=== PATIENT | male | born 1940 | race Caucasian/White ===

== ENCOUNTER 2017-09-28 08:52 | Day surgery (SDC) | payer MEDICARE ==
[~2017-09-28 08:52] MED LIST: Acetaminophen TAB* 325 MG PO PRN; Buffered Lidocaine 0.9% SYRIN* 5 ML/SYR SYRINGE INTRADERM ONE; Midazolam* 1 MG/ML 2 ML VIAL (2 MG) ONE
[2017-09-28 11:50] VITALS: BP 134/73
--- NOTE | 2017-09-28 13:26 | OP ---
DATE OF OPERATION: 09/28/2017 - [facility] DATE OF : 1940. SURGEON: Brendon Deutsch M.D. PREOPERATIVE DIAGNOSIS: Cataract right eye. POSTOPERATIVE DIAGNOSIS: Cataract right eye. OPERATIVE PROCEDURE: Extracapsular cataract extraction with intraocular lens implant right eye. DESCRIPTION OF PROCEDURE: The patient was brought to the operating room after being given 1/2% Alcaine with epinephrine drops in the preoperative area. The eye was prepped and draped in the usual sterile fashion. Sterile drape and eyelid speculum were placed. Again, topical 1/2% Alcaine with epinephrine was given. A paracentesis incision was made at the 9 o'clock position with the No.75 blade. Clear cornea incision 2.2 x 2.2-mm was created at the 12 o'clock position starting at the anterior limbus using the 2.2-mm keratome. The anterior chamber was irrigated with 0.4 mL of 1% non-preservative intracameral lidocaine and filled with DisCoVisc. A capsulorrhexis was completed using the cystotome and the Utrata forceps. Hydrodissection was performed with balanced salt solution. The lens nucleus was removed with the Phacoemulsification handpiece without incident. Cortex was removed with the irrigation-aspiration handpiece. The capsular bag was re-inflated using DisCoVisc and an [id number] implant was inserted with the shooter. The irrigation-aspiration handpiece was used to remove all residual DisCoVisc. The eye was refilled with balanced salt solution and the wound checked and found to be watertight. Topical Maxitrol drops were given. [id number]/[facility] #: [id number] [facility]PITALChrissie
== END 2017-09-28 11:44 | disposition home or self-care (01) ==
LOC: OREAST 08:52
PROVIDERS: ATTEND Specialist
DX: H25.811 Combined forms of age-related cataract, right eye (principal); H43.813 Vitreous degeneration, bilateral; H16.223 Keratoconjunctivitis sicca, not specified as Sjogren's, bilateral; Z87.891 Personal history of nicotine dependence; E55.9 Vitamin D deficiency, unspecified; N18.9 Chronic kidney disease, unspecified; G47.33 Obstructive sleep apnea (adult) (pediatric); I12.9 Hypertensive chronic kidney disease with stage 1 through stage 4 chronic kidney disease, or unspecified chronic kidney disease
CPT/HCPCS: J2250; V2632

== ENCOUNTER 2017-10-05 08:11 | Day surgery (SDC) | payer MEDICARE ==
[~2017-10-05 08:11] MED LIST changes: -Midazolam* 1 MG/ML 2 ML VIAL (2 MG) ONE
[2017-10-05] MEDS ORDERED: Midazolam* 1 MG/ML 2 ML VIAL (2 MG) ONE (10:46)
[2017-10-05] MEDS ORDERED: Cyclopentolate 1% OPTH.SOL* 2 ML BTL ONE ×2 (11:04→11:51)
[2017-10-05] MEDS ORDERED: Povidone Iodine 5% OPTH* 30 ML BTL ONE ×2 (11:04→11:51)
[2017-10-05] MEDS ORDERED: Phenylephrine 2.5% OPTH.SOL* 2 ML BTL ONE ×2 (11:04→11:51)
[2017-10-05] MEDS ORDERED: Ketorolac 0.5% OPHTH (NF) 0.5 % 5 ML BTL ONE ×2 (11:04→11:51)
[2017-10-05] MEDS ORDERED: Proparacaine 0.5% OPHTH.SOL* 15 ML BTL ONE ×2 (11:04→11:51)
[2017-10-05] MEDS ORDERED: Neomycin/Polymy/Dex OPTH.SUSP* MAXITROL 0.1% 5 ML ONE ×2 (11:04→11:51)
[2017-10-05] MEDS ORDERED: Lidocaine 2% EPI 1:200000 MPF* 20 ML VIAL ONE ×2 (11:04→11:51)
[2017-10-05] MEDS ORDERED: acetaZOLAMIDE TAB* 250 MG ONE ×2 (11:04→11:51)
[2017-10-05] MEDS ORDERED: Lidocaine 1% MPF* 2 ML VIAL ONE ×2 (11:04→11:51)
[2017-10-05 11:26] VITALS: BP 136/77
--- NOTE | 2017-10-05 12:54 | OP ---
DATE OF OPERATION: 10/05/2017. DATE OF : 1940. SURGEON: Brendon Deutsch M.D. PREOPERATIVE DIAGNOSIS: Cataract left eye. POSTOPERATIVE DIAGNOSIS: Cataract left eye. OPERATIVE PROCEDURE: Extracapsular cataract extraction with intraocular lens implant left eye. PROCEDURE: The patient was brought to the operating room after being given 1/2% Alcaine with epineph rine drops in the preoperative area. The eye was prepped and draped in the usual sterile fashion. S terile drape and eyelid speculum were placed. Again, topical 1/2% Alcaine with epinephrine was given . A paracentesis incision was made at the 3 o'clock position with the No.75 blade. Clear cornea inc ision 2.2 x 2.2-mm was created at the 6 o'clock position starting at the anterior limbus using the 2. 2-mm keratome. The anterior chamber was irrigated with 0.4 mL of 1% non-preservative intracameral li docaine and filled with DisCoVisc. A capsulorrhexis was completed using the cystotome and the Utrata forceps. Hydrodissection was performed with balanced salt solution. The lens nucleus was removed wi th the Phacoemulsification handpiece without incident. Cortex was removed with the irrigation-aspira tion handpiece. The capsular bag was re-inflated using DisCoVisc and an [id number] implant was insert ed with the shooter. The irrigation-aspiration handpiece was used to remove all residual DisCoVisc. The eye was refilled with balanced salt solution and the wound checked and found to be watertight. Topical Maxitrol drops were given. [id number]/[facility] #: [id number]
== END 2017-10-05 11:34 | disposition home or self-care (01) ==
LOC: OREAST 08:11
PROVIDERS: ATTEND Specialist
DX: H25.812 Combined forms of age-related cataract, left eye (principal); H43.813 Vitreous degeneration, bilateral; H16.223 Keratoconjunctivitis sicca, not specified as Sjogren's, bilateral; I12.9 Hypertensive chronic kidney disease with stage 1 through stage 4 chronic kidney disease, or unspecified chronic kidney disease; N18.9 Chronic kidney disease, unspecified; E55.9 Vitamin D deficiency, unspecified; I45.10 Unspecified right bundle-branch block; E78.5 Hyperlipidemia, unspecified; G47.33 Obstructive sleep apnea (adult) (pediatric); Z87.891 Personal history of nicotine dependence
CPT/HCPCS: A9270-GY; J2250; V2632

== ENCOUNTER → 2019-05-11 | Day surgery (SDC) | payer MEDICARE ==
[~2019-05-11] MED LIST changes: -Acetaminophen TAB* 325 MG PO PRN; -Buffered Lidocaine 0.9% SYRIN* 5 ML/SYR SYRINGE INTRADERM ONE; +Flumazenil* 0.1 MG/ML 5 ML MDV ONE; +Heparin 2 UNITS/ML IVPREMIX* 3,000 UNIT/1,500 ML BAG IV ONE; +Heparin(*) 1000 UNIT/ML 10 ML VIAL CATH LAB IV ONE; +Iodixanol 320 (CONTRAST) 100 ML SDV ONE; +LORazepam TAB(*) 1 MG ONE; +Lidocaine 1% INJ* 10 MG/ML 30 ML SDV ONE; +Metoprolol Tartrate IV* 1 MG/ML 5 ML VIAL ONE; +Midazolam* 1 MG/ML 5 ML VIAL (5 MG) ONE; +Naloxone* 0.4 MG/ML 1 ML VIAL ONE; +fentaNYL* 50 MCG/ML 5 ML VIAL (250 MCG VIAL) ONE
[2019-05-11 12:45] VITALS: BP 158/75
--- NOTE | 2019-05-11 14:59 | PN ---
Progress Note - Progress Note Date of Service: 05/11/19 SOAP: Subjective: No pain complaints at right groin or elsewhere. No SOB or CP. + void without issue. Objective: Selected Entries 05/11/19 12:36 Heart Rate 73 Respiratory 12 Rate Blood Pressure 158/75 (mmHg) Blood Pressure 102 Mean O2 Sat by Pulse 95 Oximetry NAD, AAO x 3 Right groin over right common femoral arteriotomy is soft and nontender Overlying gauze is clean, dry & intact Pulse exam is unchanged Assessment: 78 YOM status post DIAGNOSTIC pelvic and bilateral lower extremity arteriography. The bilateral SFAs are occluded from the ostia to the mid thigh with distal reconstitution. Plan: 1. D/C to home. 2. Should the patient choose to do so, he will return in 2-4 weeks to attempt to revascularize the SFAs from a transpedal retrograde approach. 3. Per usual IR protocol clinic RN will call patient Tuesday, May 14, 2019 to inquire about any access site complications.
== END | disposition home or self-care (01) ==
LOC: CHICARD 06:52
PROVIDERS: ATTEND Radiology Diagnostic Radiology
DX: I70.213 Atherosclerosis of native arteries of extremities with intermittent claudication, bilateral legs (principal); I12.9 Hypertensive chronic kidney disease with stage 1 through stage 4 chronic kidney disease, or unspecified chronic kidney disease; N18.9 Chronic kidney disease, unspecified; E78.00 Pure hypercholesterolemia, unspecified; Z85.51 Personal history of malignant neoplasm of bladder; Z86.718 Personal history of other venous thrombosis and embolism; Z87.891 Personal history of nicotine dependence
CPT/HCPCS: 75716; 75736; 76937; 99156; 99157; A9270-GY; C1769; C1887; J1644; J2250; J2310; J3010; J3490

== ENCOUNTER → 2019-06-15 07:02 | Day surgery (SDC) | payer MEDICARE ==
[~2019-06-15 07:02] MED LIST changes: +Acetaminophen TAB* 325 MG ONE; +Clopidogrel TAB* 300 MG ONE; -Flumazenil* 0.1 MG/ML 5 ML MDV ONE; -Heparin 2 UNITS/ML IVPREMIX* 3,000 UNIT/1,500 ML BAG IV ONE; +Heparin 2 UNITS/ML IVPREMIX* 4,000 UNIT/2,000 ML BAG IV ONE; -Metoprolol Tartrate IV* 1 MG/ML 5 ML VIAL ONE; -Naloxone* 0.4 MG/ML 1 ML VIAL ONE; +VERAPAMIL 2.5 MG/ML 2 ML VIAL ** 5 mg/2 ml ONE; +ceFAZolin 1 GM* X ONE DOSE (AddVan) IVPB; +fentaNYL* 50 MCG/ML 2 ML VIAL (100 MCG VIAL) ONE; -fentaNYL* 50 MCG/ML 5 ML VIAL (250 MCG VIAL) ONE; +hydrALAZINE IV* 20 MG/ML VIAL ONE; +nitroGLYCERIN DRIP* 25,000 MCG/250 ML BTL ONE
[2019-06-15 15:23] VITALS: BP 153/82
== END | disposition home or self-care (01) ==
LOC: CHICATH 07:02
PROVIDERS: ATTEND Radiology Diagnostic Radiology
DX: I70.213 Atherosclerosis of native arteries of extremities with intermittent claudication, bilateral legs (principal); E78.00 Pure hypercholesterolemia, unspecified; N18.9 Chronic kidney disease, unspecified; Z86.718 Personal history of other venous thrombosis and embolism; Z86.711 Personal history of pulmonary embolism; Z87.891 Personal history of nicotine dependence; I12.9 Hypertensive chronic kidney disease with stage 1 through stage 4 chronic kidney disease, or unspecified chronic kidney disease; G47.30 Sleep apnea, unspecified; Z85.51 Personal history of malignant neoplasm of bladder; E55.9 Vitamin D deficiency, unspecified
CPT/HCPCS: 37252; 76937; 85347; 93922; 99156; 99157; A9270-GY; C1725; C1753; C1769; C1776; C1874; C1887; C1894; J0360; J0690; J1644; J2250; J3010

== ENCOUNTER → 2019-07-27 06:45 | Day surgery (SDC) | payer MEDICARE ==
[~2019-07-27 06:45] MED LIST changes: -Acetaminophen TAB* 325 MG ONE; -Clopidogrel TAB* 300 MG ONE; +Heparin 2 UNITS/ML IVPREMIX* 1,000 ML IV ONE; +Heparin 2 UNITS/ML IVPREMIX* 2,000 ML IV ONE; -Heparin 2 UNITS/ML IVPREMIX* 4,000 UNIT/2,000 ML BAG IV ONE; -hydrALAZINE IV* 20 MG/ML VIAL ONE
[2019-07-27 07:45] LABS: ABS Eosinophils 0.2 10^3/ul (0-0.6); ABS Lymphocytes 1.4 10^3/ul (1.0-4.8); ABS Monocytes 0.5 10^3/ul (0-0.8); Eosinophil % 2.5 %; Hematocrit 39 % (42-52); Hemoglobin 13.4 g/dL (14.0-18.0); Lymphocyte % 19.5 %; Mean Corpuscular HGB Conc 34 g/dL (31-36); Mean Corpuscular Hemoglobin 31 pg (27-31); Mean Corpuscular Volume 91 fL (80-94); Mean Platelet Volume 6.7 fL (7.4-10.4); Platelet Count 216 10^3/uL (150-450); Red Blood Count 4.29 10^6 /uL (4.18-5.48); Red Cell Distribution Width 15 % (10-15)
[2019-07-27 07:53] LABS: Activated Partial Thrombo Time 38.1 seconds (26.0-38.0); INR 1.05 (0.82-1.09)
[2019-07-27 08:03] LABS: BUN/Creatinine Ratio 15.8 (8-20); Calcium 9.7 mg/dL (8.6-10.3); EGFR African American 56.4 (>60); EGFR Non-African American 46.6 (>60); Potassium 4.5 mmol/L (3.5-5.0)
[2019-07-27 13:30] VITALS: BP 134/73
== END | disposition home or self-care (01) ==
LOC: CHICATH 06:45
PROVIDERS: ATTEND Radiology Diagnostic Radiology
DX: I70.222 Atherosclerosis of native arteries of extremities with rest pain, left leg (principal); E78.00 Pure hypercholesterolemia, unspecified; N18.9 Chronic kidney disease, unspecified; F32.9 Major depressive disorder, single episode, unspecified; E55.9 Vitamin D deficiency, unspecified; I12.9 Hypertensive chronic kidney disease with stage 1 through stage 4 chronic kidney disease, or unspecified chronic kidney disease; Z85.51 Personal history of malignant neoplasm of bladder; G47.30 Sleep apnea, unspecified; Z86.718 Personal history of other venous thrombosis and embolism; Z79.82 Long term (current) use of aspirin; Z86.711 Personal history of pulmonary embolism; Z87.891 Personal history of nicotine dependence
CPT/HCPCS: 36415; 75736; 76937; 80048; 85025; 85610; 85730; 99156; 99157; A9270-GY; C1725; C1760; C1769; C1887; C1894; J0690; J1644; J2250; J3010

== ENCOUNTER 2019-12-05 02:32 | Inpatient (IN) | payer MEDICARE ==
--- OUTSIDE RECORDS SUMMARY | 2019-12-05 02:40 | XMS REPORT | Continuity of Care Document ---
:1940 External Reference #:[id number] Author Name Austin Nicholas MD Address [address] [place] [address] Care Team Providers Name Role Phone Amor Brown M.D. - Family Medicine Care Team Information Slip Bridge Operator Brendon Kohler MD - Nephrology Care Team Information Slip Bridge Operator Joshua Shelley MD - Urology Care Team Information Slip Bridge Operator Problems Active Problems Provider Date Essential hypertension Amor Brown M.D. Onset: 04/09/2012 Pure hypercholesterolemia Amor Brown M.D. Onset: 04/09/2012 Chronic renal failure Amor Brown M.D. Onset: 04/09/2012 Depressive disorder Amor Brown M.D. Onset: 04/09/2012 Vitamin D deficiency Amor Brown M.D. Onset: 04/09/2012 Neoplasm of uncertain behavior of bladder Amor Brown M.D. Onset: 04/09/2012 Social History Type Date Description Comments Sex Unknown Tobacco Use Start: Unknown End: Unknown former cigarette smoker Tobacco Use Start: Unknown , since 14 years old. Smokeless Tobacco Former smokeless tobacco user, age 65 aprox 1 to 1/2ppd x 51 years, quit at [facility]TO[facility] Use Denies alcohol use Allergies, Adverse Reactions, Alerts Description No Known Drug Allergies Medications Active Medications SIG Qnty Indications Ordering Provider Date Omeprazole 1 by mouth every 60caps K29.01 Austin Nicholas, 11/27/2019 40mg day MD Capsules Pravastatin Sodium take one tablet 90tabs I73.9 Amor Brown M.D. 2018 20mg by mouth at Tablets bedtime Oxybutynin Chloride 1 by mouth qd-tid 60tabs N39.41 Amor Brown M.D. 01/24 5mg Tablets Atenolol take 1/2 tablets 45tabs I10 Amor Brown M.D. 11/17/2017 50mg Tablets by mouth once daily Vitamin D 1 by mouth every Amor Brown M.D. 08/17/2016 (Cholecalciferol) day 1000Unit Capsules Duloxetine HCL take one capsule 30caps Amor Brown M.D. 05/03/2014 60mg by mouth every Caps DR Part day Aspirin 1 PO qd Amor Brown M.D. 09/25/2008 81mg Chewtabs Clopidogrel Bisulfate Take 1 Tablet By Unknown Mouth Once Daily 75mg Tablets Start Tuesday History Medications Rosuvastatin Calcium 1 by mouth every 30tabs Amor Brown M.D. 07/24/2019 - 5mg day 09/06/2019 Tablets Immunizations CPT Code Status Date Vaccine Lot # [id number] Given 09/06/2019 Influenza Vaccine High Dose PF [id number] 47850 Given 10/04/2018 Influenza Vaccine High Dose PF [id number] 91601 Given 09/22/2017 Influenza Vaccine High Dose PF [id number] 15518 Given 10/07/2016 Influenza Vaccine High Dose PF [id number] 76806 Given 02/28/2015 Prevnar-13 Pneumococcal Conjugate Vaccine [id number] 09284 Given 02/22/2013 Tdap (Adacel) [id number] 86806 Given 02/18/2011 Pneumovax 23 (PPSV23) 65+ years or high risk 2 to [id number] 64 year old 19179 Given 02/18/2011 Td Age 7 to adult Decavac, Tenivac, [employer] [id number] 90380 Refused 10/02/2015 Influenza Vaccine High Dose PF Vital Signs Date Vital Result Comment 11/27/2019 10:27am Weight 179.00 lb Weight 81.194 kg BP Systolic 154 mmHg BP Diastolic 82 mmHg Heart Rate 74 /min Body Temperature 97.3 F Respiratory Rate 18 /min 09/06/2019 2:59pm Weight 178.00 lb Weight 80.741 kg BP Systolic 122 mmHg BP Diastolic 76 mmHg Heart Rate 76 /min Body Temperature 98.3 F Respiratory Rate 18 /min O2 % BldC Oximetry 96 % Results Test Acquired Date Facility Test Result H/L Range Note CBC Auto 07/27/2019 [facility] White Blood 7.0 10^3/ uL Normal 3.5-10.8 Diff [phone] Count Red Blood Count 4.29 10^6/uL Normal 4.18-5.48 Hemoglobin 13.4 g/dL Low 14.0-18.0 Hematocrit 39 % Low 42-52 Mean Corpuscular Volume 91 fL Normal 80-94 Mean Corpuscular Hemoglobin 31 pg Normal 27-31 Mean Corpuscular HGB Conc 34 g/dL Normal 31-36 Red Cell Distribution Width 15 % Normal 10-15 Platelet Count 216 10^3/uL Normal 150-450 Mean Platelet Volume 6.7 fL Low 7.4-10.4 Abs Neutrophils 5.0 10^3/uL Normal 1.5-7.7 Abs Lymphocytes 1.4 10^3/uL Normal 1.0-4.8 Abs Monocytes 0.5 10^3/uL Normal 0-0.8 Abs Eosinophils 0.2 10^3/uL Normal 0-0.6 Abs Basophils 0.0 10^3/uL Normal 0-0.2 Abs Nucleated RBC 0.0 10^3/uL Granulocyte % 70.8 % Lymphocyte % 19.5 % Monocyte % 7.0 % Eosinophil % 2.5 % Basophil % 0.2 % Nucleated Red Blood Cells % 0.0 Inr/Protime 07/27/2019 [facility] Inr 1.05 Normal 0.82-1.09 5 [phone] Laboratory test 07/27/2019 [facility] Partial 38.1 High 26.0-38.0 finding [phone] Thrombo seconds Time PTT Basic Metabolic 07/27/2019 [facility] Sodium 141 mmol /L Normal 135-145 Panel [phone] Potassium 4.5 mmol/L Normal 3.5-5.0 Chloride 104 mmol/L Normal 101-111 Co2 Carbon Dioxide 32 mmol/L Normal 22-32 Anion Gap 5 mmol/L Normal 2-11 Glucose 96 mg/dL Normal 70-100 Blood Urea Nitrogen 23 mg/dL Normal 6-24 Creatinine 1.46 mg/dL High 0.67-1.17 BUN/Creatinine Ratio 15.8 Normal 8-20 Calcium 9.7 mg/dL Normal 8.6-10.3 Egfr Non- 46.6 >60 Egfr 56.4 >60 2 Laboratory test 06/15/2019 [facility] Poc Activated 255 seconds 3 finding [phone] Clotting Time Laboratory test 06/15/2019 [facility] Poc Activated 219 seconds 4 finding [phone] Clotting Time 1 Standard intensity warfarin therapeutic range: 2.0-3.0 High intensity warfarin therapeutic range: 2.5-3.5 2 Because ethnic data is not always readily available, this report includes an eGFR for both -Americans and non- Americans. The National Kidney Disease Education Program (NKDEP) does not endorse the use of the MDRD equation for patients that are not between the ages of 18 and 70, are , have extremes of body size, muscle mass, or nutritional status, or are non- or non-. According to the National Kidney Foundation, irrespective of diagnosis, the stage of the disease is based on the level of kidney function: Stage Description GFR(mL/min/1.73 m(2)) 1 Kidney damage with normal or decreased GFR 90 2 Kidney damage with mild decrease in GFR 60-89 3 Moderate decrease in GFR 30-59 4 Severe decrease in GFR 15-29 5 Kidney failure <15 (or dialysis) 3 Specialized Language Instructor: [id number] Reference Range: 74-125 seconds 4 Specialized Language Instructor: [id number] Reference Range: 74-125 seconds Procedures Description No Information Available Medical Devices Description No Information Available Encounters Type Date Location Provider Dx Diagnosis Office Visit 09/06/2019 Main Office Amor Brown M.D. 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 09/06/2019 N18.9 Chronic kidney disease, unspecified Amor Brown M.D. 09/06/2019 M15.0 Primary generalized (osteo)arthritis Amor Brown M.D. 09/06/2019 I73.9 Peripheral vascular disease, unspecified Amor Brown M.D. 09/06/2019 Z23 Encounter for immunization Amor Brown M.D. Plan of Treatment Future Appointment(s):01/17/2020 9:30 am - Amor Brown M.D. at Main [facility]7411/27 - Austin Nicholas MDK29.01 Acute gastritis with bleedingNew Medication: Omeprazole 40 mg - 1 by mouth every dayComments:Acute onset of epigastric pain consistent with gastritis or ulcer. We will begin with omeprazole and H. pylori testing.If H. pylori testing is negative, he will be referred to gastroenterology for likely upper endoscopy.We will also get some blood work today to ensure he is not becoming anemic. Functional Status Description No Information Available Mental Status Description No Information Available Referrals Description No Information Available
--- NOTE | 2019-12-05 02:42 | ED ---
HPI Chest Pain - HPI Summary HPI Summary: The patient is am 79-year-old male arriving via ambulance to [facility] with a chief complaint of mid-sternal CP onset around 0100 this morning. He reports that the severe pain woke him up with rating 10/10 in severity. He waited to call EMS because he has experienced similar pain before, but the pain usually subsides, and it hadnt resolved this time so he proceeded to call an ambulance. En route , the patient was administered one NTG and ASA to complete resolution of the pain. During the event, he felt diaphoretic but not nauseous or short of breath. He endorses diffuse abdominal pain that is worst on the left. No stated cardiac history, although he had a cardiac cath in the past with results of stripped veins. Taking Plavix. Past medical history significant for HTN, vertigo, sleep apnea, chronic renal failure. Former smoker, no EtOH, no substance use. Medications reviewed. Allergies noted. - History of Current Complaint Hx Obtained From: Patient, EMS Onset/Duration: Started Hours Ago, Resolved Time of Onset: 01:00 Timing: Constant Initial Severity: Severe Current Severity: None Pain Intensity: 0 Pain Scale Used: 0-10 Numeric Chest Pain Location: Mid Sternal Chest Pain Radiates: No Character: Sharp/Stabbing Aggravating Factor(s): Nothing - woke up with pain Alleviating Factor(s): NTG 123 - one, EMS Tx - ASA/NTG Associated Signs and Symptoms: Positive: Chest Pain, Diaphoresis, Abdominal Pain - diffuse worse on left. Negative: Shortness of Breath, Nausea - Allergy/Home Medications Allergies/Adverse Reactions: Allergies Allergy/AdvReac Type Severity Reaction Status Date / Time No Known Allergies Allergy Verified 12/05/19 02:43 Home Medications: Home Medications Multivitamin 1 tab PO DAILY 12/05/19 [History Confirmed 12/05/19] PMH/Surg Hx/FS Hx/Imm Hx Endocrine/Hematology History: Denies: Hx Diabetes Cardiovascular History: Reports: Hx Hypertension - MEDICATED Denies: Hx Angina, Hx Hypercholesterolemia, Hx Pacemaker/ICD Respiratory History: Reports: Hx Sleep Apnea - MILD Denies: Hx Asthma, Hx Chronic Obstructive Pulmonary Disease (COPD) History: Reports: Hx Chronic Renal Failure, Hx Renal Disease Denies: Hx Dialysis Musculoskeletal History: Reports: Hx Arthritis Sensory History: Reports: Hx Cataracts - BILATERAL Denies: Hx Contacts or Glasses, Hx Hearing Aid - [facility] is [facility] History: Reports: Hx Cataracts - BILATERAL Denies: Hx Contacts or Glasses Neurological History: Reports: Other Neuro Impairments/Disorders - vertigo Psychiatric History: Reports: Hx Depression - ON MEDICATION FOR Denies: Hx Panic Disorder - Cancer History Cancer Type, 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 CATARACT REPAIR. METALLIC SHARD TO FOREHEAD( SCREENING XRAYS DONE; PER DR. ROMERO: PT IS OKAY TO HAVE MRI LONG HE IS ALERT AND UNDERSTANDS THE POTENTIAL THAT THE METAL MAY HEAT AND HE MUST ALERT US IF HE EXPERIENCES ANY PAIN/DISCOMFORT/HEATING IN THAT AREA.) Hx Anesthesia Reactions: No - Family History Known Family History: Negative: Diabetes - Social History Alcohol Use: None Hx Substance Use: No Substance Use Type: Reports: None Hx Tobacco Use: Yes Smoking Status (MU): Former Smoker Amount Used/How Often: 1 PPD X 50 YEARS Have You Smoked in the Last Year: No - Additional Comments History Additional Comments: hypertension, vertigo, sleep apnea, chronic renal failure, former smoker Review of Systems - ROS Summary Review of Systems Summary: Home Medications Medication Instructions Recorded Confirmed Type Aspirin [Aspirin 81 MG TAB] 81 mg PO DAILY 09/27/17 07/27/19 History Atenolol TAB* [Tenormin TAB* 25 MG] 25 mg PO QAM 09/27/17 07/27/19 History Cholecalciferol TAB* [Vitamin D 1,000 unit PO DAILY 09/27/17 07/27/19 History TAB*] DULoxetine CAP* [Cymbalta CAP*] 60 mg PO QPM 09/27/17 07/27/19 History Clopidogrel TAB* [Plavix TAB*] 75 mg PO DAILY 180 Days #90 tab 06/15/19 Rx Multivitamin 1 tab PO DAILY 12/05/19 12/05/19 History Positive: Skin Diaphoresis Positive: Chest Pain - mid-sternal Negative: Shortness Of Breath Positive: Abdominal Pain - diffuse worst on left. Negative: Nausea All Other Systems Reviewed And Are Negative: Yes Physical Exam - Summary Physical Exam Summary: General: Well-developed, Well-nourished elderly male. No acute distress. HEENT: Normocephalic, Atraumatic. Eyes: Conjuctiva normal, PERRL. Oropharynx: Clear, mucous membranes moist, (-) exudates. Neck: Soft, FROM, (-) lymphadenopathy, (-) thyromegaly, (-) JVD. Cardiovascular: Normal sinus rhythm, (-) murmur. Lungs: Clear to auscultation bilaterally (-) wheezes, (-) rales, (-) rhonchi. Abdomen: Soft, non-tender, non-distended, (-) organomegaly, normal bowel sounds. Back: (-) CVA tenderness Extremities: Trace edema. Skin: Warm, dry, (-) rash. Neuro: Alert and oriented x3, moves all extremities equally. No ataxia. No gait disturbance. No sensory deficit. Normal strength, normal sensation. Psychiatric: Mood normal, affect normal. Triage Information Reviewed: Yes Vital Signs Reviewed: Yes Procedures - Sedation Patient Received Moderate/Deep Sedation with Procedure: No Diagnostics - Laboratory Result Diagrams: 12/05/19 02:45 12/05/19 02:45 Lab Statement: Any lab studies that have been ordered have been reviewed, and results considered in the medical decision making process. - EKG 0229 Cardiac Rate: NL - 94 BPM EKG Rhythm: Sinus Rhythm Summary of EKG Findings: EKG at 0344 reveals normal sinus rhythm with rate of [address] depressions in I, V2-V6. ST elevation in aVR. This EKG was reviewed and interpreted by Dr. Langston. 0344 Cardiac Rate: NL - 96 BPM EKG Rhythm: Sinus Rhythm EKG Comparison: No Significant Change Summary of EKG Findings: EKG at 0344 reveals normal sinus rhythm with rate of 96 BPM, no acute changes from prior, no STEMI. This EKG was reviewed and interpreted by Dr. Langston. Re-Evaluation - Re-Evaluation First Eval Re-Evaluation Time: 03:30 Change: Worse Comment: Patient experiencing some pain in the left arm, will administer Lovenox Second Eval Re-Evaluation Time: 04:00 Change: Worse Comment: Chest pain has returned, will administer Lopressor and Lipitor, plan for admission Chest Pain Course/Dx - Course Course Of Treatment: 79-year-old male presents from home by ambulance for chest pain. he states he's been having chest pains off and on for a few weeks now. Has seen PCP. Is also been complaining of left upper abdominal pain. Tonight patient's pain was 9 out of 10. Pain was completely relieved en route was 1 nitroglycerin. Also had 4 baby aspirin's at that time as well. Patient's EKG upon arrival demonstrates some ST depressions which are new. Does not qualify as a STEMI. Patient remained chest pain free throughout most of his workup. Troponin was positive at 3.7. Patient did return of his pain. Greater than a 5 out of 10. Nitro drip was ordered. Blood pressure was soft so Lopressor now ordered that time. However patient's blood pressure started to increase soon thereafter. IV fluids were started and Lopressor ordered. Lovenox ordered. Repeat EKG shows no changes from initial EKG. Cardiology was consulted. They recommended titrating nitro drip until patient was pain-free. Checking repeat EKG. after titration of the nitro drip patient was again pain-free. Patient referred to hospitalist for admission. Patient administered fluids, Lovenox, nitro drip, and Lopressor. - Diagnoses Provider Diagnoses: NSTEMI (non-ST elevated myocardial infarction) - Provider Notifications Discussed Care Of Patient With: Efren Delvalle - cardiology Time Discussed With Above Provider: 03:40 Instructed by Provider To: Other - I discussed the patient's case with Dr. Delvalle, and he will consult for the patien t with plan for admission. Request for NTG drip, repeat EKG, control pain. Dr. Esparza from the hospitalist services accepts the patient for admisssion [0350]. - Critical Care Time Critical Care Time: 30-74 min - 54 minutes Discharge ED - Sign-Out/Discharge Documenting (check all that apply): Patient Departure - Patient accepted for admission by Dr. Esparza. - Discharge Plan Condition: Stable Disposition: ADMITTED TO [facility] - Billing Disposition and Condition Condition: STABLE Disposition: Admitted to [facility] - Attestation Statements Document Initiated by Scribe: Yes Documenting Scribe: Adia Barlow Provider For Whom Scribe is Documenting (Include Credential): Dr. Luciana Langston MD Scribe Attestation: I, Adia Barlow, scribed for Dr. Luciana Langston MD on 12/05/19 at 0646. Scribe Documentation Reviewed: Yes Provider Attestation: The documentation as recorded by the Adia pérez accurately reflects the service I personally performed and the decisions made by me, Dr. Luciana Langston MD Status of Scribe Document: Viewed
[2019-12-05 03:03] LABS: ABS Basophils 0.1 10^3/ul (0-0.2); ABS Eosinophils 0.1 10^3/ul (0-0.6); ABS Monocytes 0.8 10^3/ul (0-0.8); ABS Neutrophils 8.5 10^3/ul (1.5-7.7); Eosinophil % 0.7 %; Hematocrit 38 % (42-52); Hemoglobin 13.2 g/dL (14.0-18.0); Lymphocyte % 9.5 %; Mean Corpuscular HGB Conc 35 g/dL (31-36); Mean Corpuscular Hemoglobin 32 pg (27-31); Mean Corpuscular Volume 92 fL (80-94); Mean Platelet Volume 7.7 fL (7.4-10.4); Platelet Count 214 10^3/uL (150-450); Red Blood Count 4.09 10^6 /uL (4.18-5.48); Red Cell Distribution Width 14 % (10-15); White Blood Count 10.4 10^3/uL (3.5-10.8)
[2019-12-05 03:08] LABS: INR 1.16 (0.82-1.09)
[2019-12-05 03:19] LABS: ALT 28 U/L (7-52); AST 43 U/L (13-39); Albumin 3.6 g/dL (3.2-5.2); Albumin/Globulin Ratio 1.2 (1-3); Alkaline Phosphatase 71 U/L (34-104); Anion Gap 12 mmol/L (2-11); BUN/Creatinine Ratio 16.2 (8-20); Blood Urea Nitrogen 27 mg/dL (6-24); CO2 Carbon Dioxide 24 mmol/L (22-32); Chloride 100 mmol/L (101-111); EGFR African American 48.1 (>60); EGFR Non-African American 39.8 (>60); Glucose 125 mg/dL (70-100); Potassium 3.4 mmol/L (3.5-5.0); Sodium 136 mmol/L (135-145); Total Protein 6.6 g/dL (6.4-8.9)
[2019-12-05 03:25] LABS: Troponin I 3.94 ng/mL (<0.03)
[2019-12-05] MEDS ORDERED: Enoxaparin(*) 80 MG/0.8 ML SYR SUBCUT ONE (03:27)
[2019-12-05] MEDS ORDERED: nitroGLYCERIN DRIP* 25,000 MCG/250 ML BTL IV ONE (03:34)
[2019-12-05] MEDS ORDERED: Metoprolol Tartrate IV* 1 MG/ML 5 ML VIAL IV ONE (04:06)
[2019-12-05] MEDS ORDERED: Atorvastatin* 80 MG TAB PO ONE (04:08)
[2019-12-05] MEDS ORDERED: Clopidogrel TAB* 75 MG PO ONE (04:08)
[2019-12-05] MEDS ORDERED: Metoprolol Tartrate TAB* 25 MG PO ONE ×2 (04:08→08:00)
[2019-12-05 04:41] LABS: Cholesterol 153 mg/dL; HDL Cholesterol 35.3 mg/dL; LDL Cholesterol 88 mg/dL; Triglycerides 149 mg/dL
[2019-12-05] MEDS ORDERED: NS 0.9% 1000 ML** 1,000 ML IV ONE (05:32)
[2019-12-05] MEDS ORDERED: Potassium Chlor TAB* 20 MEQ TAB.ER PO ONE (05:36)
[2019-12-05 06:12] LABS: Troponin I 4.95 ng/mL (<0.03)
--- NOTE | 2019-12-05 08:33 | HP ---
HISTORY AND PHYSICAL: DATE OF ADMISSION: 12/05/19 ADMITTING PROVIDER: Patel Esparza MD PRIMARY CARE PROVIDER: Dr. Amor Brown. CONSULTING PROGRAM OFFICER: Dr. Delvalle. CHIEF COMPLAINT: Severe chest pain. HISTORY OF PRESENT ILLNESS: Zane Estrada is an 79-year-old male with past medical history of claudication, status post revascularization of occluded proximal right superficial femoral artery (but has not been able to fully revascularize the left and was referred to a vascular surgeon for further evaluation, which he has not done yet); hypertension; hyperlipidemia; bladder cancer; pulmonary embolism (2006); obstructive sleep apnea; depression. He reports that he has been having approximately 6 weeks of intermittently very severe chest pain and also usually associated with some left abdominal pain. His stools have been black for several months and Dr. Nicholas had ordered, he says, a stool sample. He had a colonoscopy approximately 4 years ago. He has been having intermittent constipation. He woke up with severe left-sided chest pain around 1 a.m. and was brought to [facility] via ambulance. He received aspirin and nitroglycerin with EMT. Initial blood pressure was done, it had been 195/74 and the pain was rated as a 9 to 10/10. Initial evaluation in [facility] Emergency Room included EKG with ST depressions anteriorly and laterally. His initial troponin was 3.94. Dr. Ramos consulted Dr. Delvalle of Cardiology and there was initiation of a nitroglycerin drip given his continued chest pain (it had improved after the initial nitroglycerin with EMT). He was also given Lovenox 80 mg and was referred to the hospitalist service for admission. He now reports that his pain is greatly improved after up- titration of the nitroglycerin drip. Notably, he also has chronic kidney disease with a creatinine of 1.67, GFR of 39. 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 PAST MEDICAL HISTORY: Claudication with peripheral vascular disease; chronic kidney disease, stage 3; hypertension, hyperlipidemia; bladder cancer, status post scraping; obstructive sleep apnea; pulmonary embolism in 2006; depression. PAST SURGICAL HISTORY: He has had multiple revascularization attempts of his peripheral vascular disease in his legs. He lost his left kidney after a biopsy as above. MEDICATIONS: Include: 1. Atenolol 25 mg daily. 2. Aspirin 81 mg daily. 3. Duloxetine 60 mg daily. 4. Plavix 75 mg p.o. daily (started with plan for 6 months after the last 07/[address] Machado). 5. Cholecalciferol 1000 units p.o. daily. ALLERGIES: No known drug allergies. FAMILY HISTORY: His father of cerebral aneurysm and he also had lung cancer, his mother of unknown causes. He has a daughter who was due to brain cancer. He has a son with sarcoidosis and another child. SOCIAL HISTORY: The patient is a former smoker, approximately 1 pack per day between the ages of teenage years to age 64, 15 years ago, approximately 50- pack years. Denies alcohol use. 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 He desires to be a full code. Medical surrogate is his , Anna Estrada. REVIEW OF SYSTEMS: Complete 14-point review of systems negative except as per HPI. PHYSICAL EXAMINATION GENERAL APPEARANCE: In acute distress initially. VITAL SIGNS: Most recently, temperature 98.1, pulse rate 92, respiratory rate 16, satting 95% on room air, blood pressure 115/82. HEENT: Normocephalic, atraumatic. Pupils are equal, round and reactive to light. Extraocular motions are intact. No scleral icterus. LUNGS: Clear to auscultation anteriorly with no wheezing, rales, or rhonchi. CARDIOVASCULAR: Regular rate and rhythm. No murmurs, rubs, or gallops. ABDOMEN: Soft. There is an area of focal tenderness in the left upper quadrant. EXTREMITIES: Warm and well perfused. No peripheral edema. NEUROLOGIC: Cranial nerves II through XII intact. Alert and oriented x3. SKIN: No lesions or rashes. DIAGNOSTIC STUDIES/LAB DATA: White count 10.4, hemoglobin 13.2, hematocrit 38 , platelets 214. INR 1.16. Sodium 136, potassium 3.4, chloride 100, carbon dioxide 24, BUN 27, creatinine 1.67, glucose 125, lactic acid 2.1. AST 43, ALT 28. Troponin 3.94. BNP 375. Alk phos 71. EKGs: At 2:29, normal sinus rhythm , right bundle-branch block, ST depressions in V3 through V6 and I and aVL, ST elevation in aVR. On a repeat at 3:44, continued ST depressions in I, aVL, V2 through V6, normal axis, normal PA interval, QRS is elevated at 154. Imaging: Chest x-ray, no acute infiltrate, some vascular prominence noted. ASSESSMENT AND PLAN: Zane Estrada is an 79-year-old male with past medical history of severe claudication and vasculopathy, hypertension, hyperlipidemia, chronic kidney disease, bladder cancer, obstructive sleep apnea, presenting with acute severe chest pain and elevated troponin with EKG changes, ST depressions anteriorly and laterally. He is now symptomatically improved after initiation of a nitroglycerin drip. Trend troponins every 3 hours, repeat EKGs at the same frequency. Lipitor 80 now, aspirin 81 mg daily, given his Plavix 75 again now. He is status post Lovenox 80 mg in the ED and consideration for repeating that versus starting a heparin drip in a few hours; metoprolol tartrate 25 now, again in 4 hours and then start q.8 hours 4 hours after that or reassess as clinically indicated. I appreciate Cardiology recommendations. For his black stools and intermittent stomach pain, which seems to correlate with his chest pain, I am going to get a lipase and a stool occult blood. There could be a concern for possible ischemic colitis given his vasculopathies as to whether or not he likely, with better kidney function, should have a catheterization this admission, but some consideration for medical management given his GFR of 39, get a BMP in the morning. Add a hemoglobin A1c and lipid panel. He is a full code. Medical surrogate is his , Anna Estrada. We will make him n.p.o. except for his meds. [id number]/[facility] #: [id number] [facility]
--- NOTE | 2019-12-05 08:42 | CONSULT ---
Subjective Date of Service: 12/05/19 - CC: Chest pain Interval History: Pt with PVD, HTN, lipids awoke from sleep with L CP, diaphoresis, lasted 1 1/2 hours on estimate. 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 Past Medical History: Unchanged from Admission - Per Pt: HTN, Lipids, PVD ( [place]), traumatic facial fx, CO poisoning. Medications Active Medications: INPT Aspirin (Aspirin 81 Mg Chew Tab*) 81 mg PO DAILY [facility] Atorvastatin Calcium (Lipitor*) 80 mg PO 1700 [facility] Clopidogrel Bisulfate (Plavix Tab*) 75 mg PO DAILY [facility] Nitroglycerin/Dextrose (Nitroglycerin Drip*) 25,000 mcg in 250 mls @ 6 mls/hr IV ED ONCE ONE; Protocol Stop: 12/06/19 21:13 Last Admin: 12/05/19 03:51 Dose: 6 mls/hr Metoprolol Tartrate (Lopressor Tab*) 25 mg PO Q8H [facility] HOME Aspirin [Aspirin 81 MG TAB] 81 mg PO DAILY 09/27/17 [History Confirmed 12/05/19] Atenolol TAB* [Tenormin TAB* 25 MG] 25 mg PO QAM 09/27/17 [History Confirmed ] Cholecalciferol TAB* [Vitamin D TAB*] 1,000 unit PO DAILY 09/27/17 [History Confirmed 12/05/19] DULoxetine DR LOBO* [Cymbalta CAP*] 60 mg PO QPM 09/27/17 [History Confirmed ] Clopidogrel TAB* [Plavix TAB*] 75 mg PO DAILY 180 Days #90 tab 06/15/19 [Rx Confirmed 12/05/19] Multivitamin 1 tab PO DAILY 12/05/19 [History Confirmed 12/05/19] Home Medications: Aspirin [Aspirin 81 MG TAB] 81 mg PO DAILY 09/27/17 [History Confirmed 12/05/19] Atenolol TAB* [Tenormin TAB* 25 MG] 25 mg PO QAM 09/27/17 [History Confirmed ] Cholecalciferol TAB* [Vitamin D TAB*] 1,000 unit PO DAILY 09/27/17 [History Confirmed 12/05/19] DULoxetine DR LOBO* [Cymbalta CAP*] 60 mg PO QPM 09/27/17 [History Confirmed ] Clopidogrel TAB* [Plavix TAB*] 75 mg PO DAILY 180 Days #90 tab 06/15/19 [Rx Confirmed 12/05/19] Multivitamin 1 tab PO DAILY 12/05/19 [History Confirmed 12/05/19] Review of Systems - Measurements Intake and Output: Intake and Output Last 24 Hours 12/03/19 12/04/19 12/05/19 12/06/19 04:59 04:59 04:59 04:59 Intake Total 25 Output Total 125 Balance -100 Weight 179 lb 175 lb 14.862 oz Intake: Medicated IV 25 CC - Nitroglycerine/ 25 Tridil Oral 0 Output: Urine 125 Other: # Voids 1 - Review of Systems General Comments: Denies ASHLEE, no orthopnea or PND No recent med changes, change in activity. No recent fevers, chills. No coughing, no dysuria. Review of Systems Statement: All other review of systems negative, unless stated above. Objective Vital Signs: Temp Pulse Resp BP Pulse Ox 98.0 F 81 6 110/70 93 12/05/19 08:00 12/05/19 08:15 12/05/19 08:15 12/05/19 08:15 12/05/19 08:15 Vital Signs - 12 hr Temp Pulse Resp BP Pulse Ox 12/05/19 08:15 81 6 110/70 93 12/05/19 08:00 98.0 F 86 24 112/66 97 12/05/19 07:45 75 10 114/73 97 12/05/19 07:30 84 24 111/67 97 12/05/19 07:15 85 22 109/72 94 12/05/19 07:00 75 18 114/74 96 12/05/19 06:45 83 21 120/77 94 12/05/19 06:30 85 18 100/75 94 12/05/19 06:15 81 20 103/77 93 12/05/19 06:02 84 9 94/68 93 12/05/19 06:00 90 23 88 12/05/19 05:32 97.8 F 86 18 97/81 95 12/05/19 05:31 22 97/81 12/05/19 05:15 97.6 F 85 16 92/70 95 12/05/19 05:05 77 20 92/70 95 12/05/19 05:02 78 19 96/73 95 12/05/19 05:00 91 24 93 12/05/19 04:32 92 21 107/78 97 12/05/19 04:02 99 16 125/94 98 12/05/19 04:00 102 23 96 12/05/19 03:31 92 17 103/83 97 12/05/19 03:02 94 23 95/68 96 12/05/19 03:01 92 18 97 12/05/19 02:37 95 16 94 12/05/19 02:32 98.1 F 95 14 115/82 95 Oxygen Devices in Use Now: None Appearance: Elderly, lying 30 degrees, NAD, present Eyes: No Scleral Icterus, PERRLA Ears/Nose/Mouth/Throat: Mucous Membranes Moist Neck: NL Appearance and Movements; NL JVP, Trachea Midline Respiratory: Symmetrical Chest Expansion and Respiratory Effort - distant, Clear to Auscultation Cardiovascular: RRR - trace-1/6 SM RUSB, early peaking. Abdominal: NL Sounds; No Tenderness; No Distention - No bruits. Extremities: No Edema - Distal pulses not easily palpated, no femoral bruits. Neurological: Alert and Oriented x 3, NL Muscle Strength and Tone - grossly normal on bed exam Lines/Tubes/Other Access: Clean, Dry and Intact Peripheral IV Laboratory Results: 12/05/19 02:45 12/05/19 02:45 INR (Anticoag Therapy) 1.16 (0.82-1.09) H 12/05/19 02:45 Total Bilirubin 0.90 mg/dL (0.2-1.0) 12/05/19 02:45 AST 43 U/L (13-39) H 12/05/19 02:45 ALT 28 U/L (7-52) 12/05/19 02:45 Alkaline Phosphatase 71 U/L (34-104) 12/05/19 02:45 B-Natriuretic Peptide 375 pg/mL (<=100) H 12/05/19 02:45 Total Protein 6.6 g/dL (6.4-8.9) 12/05/19 02:45 Albumin 3.6 g/dL (3.2-5.2) 12/05/19 02:45 Globulin 3.0 g/dL (2-4) 12/05/19 02:45 Albumin/Globulin Ratio 1.2 (1-3) 12/05/19 02:45 Triglycerides 149 mg/dL 12/05/19 02:45 Cholesterol 153 mg/dL 12/05/19 02:45 LDL Cholesterol 88 mg/dL 12/05/19 02:45 HDL Cholesterol 35.3 mg/dL 12/05/19 02:45 12/05/19 12/05/19 02:45 05:39 Troponin I 3.94 H* 4.95 H* Diagnostic Imaging: Patient Name: SHARAD DIAMOND Medical Record#: [id number] Ordering Physician: Luciana Langston MD Acct.#: [id number] : 1940 Age: 79 Sex: M Location: [facility] Exam Date: 12/05/19237 ADM Status: ADM IN Order Information: CHEST AP/PORT Accession Number: [id number] CPT: 02080 HISTORY: cp chest pain COMPARISONS: January 23, 2018 VIEWS: 1: frontal AP view of the chest at 3:00 AM FINDINGS: LINES AND TUBES: None. CARDIOMEDIASTINAL SILHOUETTE: The cardiomediastinal silhouette is normal for portable technique. PLEURA: The costophrenic angles are sharp. No pleural abnormalities are noted. LUNG PARENCHYMA: There is patchy alveolar opacification of the left lung base. ABDOMEN: The upper abdomen is clear. There is no subphrenic gas. BONES AND SOFT TISSUES: No bone or soft tissue abnormalities are noted. IMPRESSION: PATCHY LEFT BASILAR ATELECTASIS VERSUS CONSOLIDATION. RECOMMEND FOLLOW-UP UNTIL RESOLUTION TO EXCLUDE UNDERLYING PULMONARY PARENCHYMAL PATHOLOGY. R1F Preliminary Imaging Read R1F <Electronically signed by Cipriano Garcia MD in OV> 12/05/19733 Dictated By: Cipriano Garcia MD Dictated Date/Time: 12/05/19733 Transcribed Date/Time: 12/05/19733 Copy to: CC:Luciana Langston MD; Patel Esparza MD; Amor Brown MD; Uday Navarro MD Imaging - [facility] Imaging - [facility] Imaging - [facility] [address] [place] [id number] [place] [id number] [place] [id number] ph ([phone]) ph ([phone]) ph ([phone]) This report is only to be considered final once signed by the Provider(s) as displayed in the "<Electronically Signed by >" field (s). Absence of a signature indicates the report is in a draft status and still needs to be finalized. In the event this document was created by someone other than the signing Provider, the individual initiating the document will be listed in the "Entered by:" or "Dictated by:" pope. 1 EKG Data: 02:29 NSR, RBBB, LPFB, lateral ST depression, poss old IWMI 07:29: resolution ST depression. rate slower. Assessment/Plan 79 yo with PVD, HTN, Lipids with CP, elevated troponins, ECG c/w ischemia on presentation. Plan: Cardiac catheterization Echo Eval for poss. ASHLEE as angina occured iwth sleep. LDL 88, apparently not on statin at home, initiate. If in fact the patient is on Statin and LDL still >70, need to advance regimen. If intolerent of statin and that is why is not on one with PVD, will need to work on pulsed dosing, other classes. Full note to be dictated by FLAQUITO Alejo.
[2019-12-05] MEDS ORDERED: diPHENhydraMINE PO* 25 MG PO PRN (08:58)
[2019-12-05] MEDS ORDERED: Diazepam TAB(*) 5 MG PO PRN (08:58)
[2019-12-05] MEDS ORDERED: Aspirin 81 mg CHEW TAB* 81 MG TAB.CHEW PO SCH (09:00)
[2019-12-05] MEDS ORDERED: NS 0.9% 1000 ML** 1,000 ML IV SCH ×2 (09:00→12:45)
[2019-12-05 09:52] LABS: Troponin I 11.45 ng/mL (<0.03)
[2019-12-05 10:05] LABS: Activated Partial Thrombo Time 41.9 seconds (26.0-38.0); INR 1.21 (0.82-1.09)
[2019-12-05] MEDS ORDERED: Docusate CAP* 100 MG PO ONE (10:45)
[2019-12-05] MEDS ORDERED: Lidocaine 1% INJ* 10 MG/ML 30 ML SDV ONE (11:29)
[2019-12-05] MEDS ORDERED: nitroGLYCERIN DRIP* 25,000 MCG/250 ML BTL ONE (11:29)
[2019-12-05] MEDS ORDERED: Heparin 2 UNITS/ML IVPREMIX* 2,000 ML IV ONE (11:29)
[2019-12-05] MEDS ORDERED: VERAPAMIL 2.5 MG/ML 2 ML VIAL ** 5 mg/2 ml ONE (11:29)
[2019-12-05] MEDS ORDERED: Midazolam* 1 MG/ML 5 ML VIAL (5 MG) ONE (11:29)
[2019-12-05] MEDS ORDERED: Heparin(*) 1000 UNIT/ML 10 ML VIAL CATH LAB IV ONE (11:29)
[2019-12-05] MEDS ORDERED: fentaNYL* 50 MCG/ML 2 ML VIAL (100 MCG VIAL) ONE (11:29)
[2019-12-05] MEDS ORDERED: Iodixanol 320 (CONTRAST) 100 ML SDV ONE (11:30)
[2019-12-05] MEDS ORDERED: Iohexol 350 (CONTRAST) 200 ML MDV IV ONE (11:30)
--- NOTE | 2019-12-05 11:32 | CONS ---
AMENDED REPORT NOW INCLUDES DESIGNATED COSIGNER - ESIGNED BEFORE ADJUSTMENT DATE OF CONSULTATION: 12/05/2019. ATTENDING PHYSICIAN: Dr. Lois Ramsay * (dictated by Anne Marie Alejo NP). REASON FOR CONSULTATION: NSTEMI. PRIMARY CARE PHYSICIAN: Dr. Brown. PRIMARY TRANSMITTER SUPERVISOR: Historically Dr. Kohler, although the patient states he has not been seen in two years by Nephrology. PERIPHERAL INTERVENTIONALIST: Dr. Machado. CHIEF COMPLAINT: Chest pain radiating into the left arm and abdomen. HISTORY OF PRESENT ILLNESS: This is a pleasant, 79-year-old male patient with a notable history of peripheral arterial disease, partial left nephrectomy due to intraoperative complications from bladder cancer tumor removal, hypertension , prior provoked PE/DVT and chronic kidney disease with baseline creatinine 1.5 to 1.6 who presented to [facility] on 12/05/2019 due to complaints of chest pain. The patient states since the beginning of October, he has been having intermittent left-sided chest pain radiating into his left arm and lower abdomen. He states that he had not experienced this symptom in more than four years. In the past, he contributed this to indigestion related to his hiatal hernia. The patient states symptoms have been occurring daily, upwards of four to five times a day, not related to activity. Due to acceleration of frequency and intensity, he did see his primary physician associate Dr. Nicholas last week and was told that he was suffering from indigestion and was referred for a stool sample and GI evaluation. The patient states that he did not have an EKG, echo, or any further cardiac testing at that time. Last night around 1 o'clock in the morning, he was woken up with left-sided chest discomfort described as tightness radiating into his left arm and left upper abdomen. The patient states because of intensity of symptoms, he called 911. According to medical records, he was given aspirin and Nitroglycerin therapy. Per patient, intensity of pain improved after administration of Nitroglycerin and resolved around 0230 en route to [facility]. While being evaluated in the emergency department , he had refractory chest pain, thus was started on IV Nitroglycerin and states he has not had recurrent chest pain since that time. He was given 80 mg of subcutaneous Lovenox at 0352 and was admitted to the ICU for NSTEMI and we were asked to see the patient in consultation. The patient denies dizziness. He does report shortness of breath with episodes. He denies palpitations, edema, orthopnea. He denies exertional intolerance, although he states he lives a fairly sedentary lifestyle. He is accompanied by his and daughter who are in the room with him today. Last ischemic evaluation appears to be an echocardiogram remotely in 2005. I have access to a limited report. It appears that his right ventricular systolic pressure was 30 to 35, LVF was 68 percent. No further information from that time is available. Last peripheral intervention was via aortogram by Dr. Machado on 07/27/2019. Per report, the patient has a known occluded left SFA and underwent successful PTCA to left common femoral. He has been maintained on aspirin and Clopidogrel therapy. PAST MEDICAL HISTORY: 1. PAD. 2. Partial left nephrectomy. 3. Hypertension. 4. Bladder cancer. 5. Provoked PE/DVT after bladder cancer tumor removal remotely. 6. Occluded left SFA. 7. Chronic kidney disease, baseline creatinine 1.5 to 1.6. PAST SURGICAL HISTORY: 1. Partial left nephrectomy. 2. Left cataract surgery. 3. PTCA to left common femoral artery. 4. Appendectomy. HOME MEDICATIONS LISTED: 1. Atenolol 25 mg a day. 2. Aspirin 81 mg a day. 3. Clopidogrel 75 mg a day. 4. Cymbalta 60 mg a day. ALLERGIES: No known drug allergies. The patient denies allergy to red dye, aspirin, contrast dye, or shellfish. FAMILY HISTORY: Noncontributory. SOCIAL HISTORY: The patient is . He lives home with his . He is a former tobacco user. He quit 15 years ago. He denies alcohol use and drug use. 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 He is listed as a full code. REVIEW OF SYSTEMS: All systems have been reviewed and otherwise negative except as above in HPI. PHYSICAL EXAMINATION: General: The patient is pleasant, appears somewhat ashened in regards to appearance. In no apparent distress. and daughter at this bedside. Well-nourished. Most recent set of vital signs: Pulse 81, respirations 18, blood pressure 110/70, oxygenation 93 percent on room air. HEENT: Head is atraumatic, normocephalic. Oral mucosa is moist. Tongue is midline. Neck: Supple, trachea midline. No obvious carotid bruit. No thyromegaly. Cardiac: Diminished S1, S2. Regular rate and rhythm. No murmur, rub or gallop noted. Lungs: Auscultated posteriorly. No evidence of adventitious breath sounds. Respirations are unlabored. /GI: Abdomen is soft , nontender. Normoactive bowel sounds. No hepatomegaly with palpation. Peripheral vascular: 2+ brachial pulses palpated bilaterally and symmetrically. The patient had very diminished distal bilateral dorsalis pedis pulse noted bilaterally, 1+ at best. The patient had 1+ to 2+ right femoral artery. No bruit auscultated. No thrill palpated. Skin: Intact. No evidence of jaundice, rashes, or ecchymosis appreciated. LABORATORY DATA: Blood work reviewed from 12/05/2019. White count 10.4, hemoglobin 13.2, hematocrit 38, platelets 214; INR 1.16; sodium 136, potassium 3.4, creatinine 1.67, troponin #2 4.95, BNP 375, LDL 88. ECG: Reviewed 12/05/2019: Sinus rhythm with known underlying right bundle branch block with interventricular conduction delay, rate [address] segment depression compared with prior ECG. Chest x-ray, 12/05/2019: Patchy left basilar atelectasis versus consolidation per Radiology report involving the left lung base. ASSESSMENT AND PLAN: 1. NSTEMI: The patient states he was woken up at 0100 12/05/2019 due to complaints of left-sided chest tightness radiating into his left arm and lower abdomen. According to the patient, he has had acceleration of symptomatology since the beginning of October 2019. This was felt to be indigestion in the past. The patient is on aspirin and Clopidogrel therapy due to known left peripheral intervention in the past. The patient has known chronic kidney disease, although creatinine is reflective of baseline with a known history of left partial nephrectomy. The patient is agreeable to proceeding with left heart catheterization procedure. Indication, risks, and benefits were reviewed with the patient and his at bedside extensively, including risk of bleeding , infection, vessel damage, contrast-induced nephropathy, possibility of heart attack, , stroke, referral for bypass surgery, and ongoing requirement for dual antiplatelet therapy. He is agreeable to proceeding. Consent with be obtained by countersinker balance screw hole Dr. Frank Doshi. At this current time , recommend continuing aspirin 81 mg a day, Clopidogrel 75 mg a day, IV Nitroglycerin. Will continue high intensity statin therapy and start IV prehydration for cardiac catheterization and follow closely. Due to known chronic kidney disease, would not recommend LV gram; instead, will assess ejection fraction via echocardiogram. The patient is NPO. 2. History of chronic kidney disease with prior partial left nephrectomy: He started to follow Dr. Kohler, although he has not had a follow-up with computer programmer analyst in two years according to the patient. His baseline creatinine is 1.5 to 1.6, thus creatinine today is reflective of baseline. Will follow closely post cardiac catheterization and hydrate appropriately. 3. History of peripheral arterial disease: On aspirin and Clopidogrel therapy. 4. History of hypertension: Currently normotensive. Will continue beta loepoldo therapy. DISPOSITION: Pending course. Dr. Lois Ramsay has personally seen and examined the patient and agrees with the above assessment and plan. Thank you for this consultation. Any future questions or concerns, please do not hesitate to contact our practice. Will follow the patient closely post cardiac catheterization. ANNE MARIE ALEJO NP [id number]/[facility] #: [id number] [facility]
--- NOTE | 2019-12-05 11:49 | ECHO ---
*[facility]* [place] [address] Fax #: [phone] Transthoracic Echocardiogram Patient: Zane Estrada : 1940 Study Date: 12/05/2019 Age: 79 Gender: M HR: 81 bpm Height: 69 in /175.3 cm BSA: 1.95 m^2 Weight: 174.6 lb /79.4 kg BMI: 25.8 kg/m^2 *Surgical Territory Manager: * Ivon Salinas RD *Referring Physician: * Lois Ramsay MD *Reading Physician: * Lois Ramsay MD Indications: Chest Pain, unspecified. Myocardial Infarction (new). History: Pulmonary Embolism. Functional status: Renal failure; Following treatment plan for sleep apnea. Risk factors: Former tobacco use. Hypertension. Hyperlipidemia. PVD. Labs, prior tests, procedures, and surgery: Nephrectomy. Conclusions Summary: - Left ventricle: The cavity size is normal. Wall thickness is moderately increased. Systolic function is mildly to moderately reduced. The estimated ejection fraction is 40-45%. Hypokinesis of the mid-apicalinferolateral and inferior myocardium. Severe hypokinesis of the entire inferior posterior myocardium. Features are consistent with a pseudonormal left ventricular filling pattern, with concomitant abnormal relaxation and increased filling pressure (grade 2 diastolic dysfunction). - Right ventricle: Systolic function is low normal. - Mitral valve: There is moderate regurgitation, directed posteriorly. The aliasing velocity for regurgitant PISA is 0.34 m/sec. The regurgitant PISA radius is 0.5 cm. The maximal regurgitant velocity is 4.45 m/sec. The regurgitant velocity-time integral is 138.0 cm. The effective regurgitant orifice (PISA) is 0.12 cm^2. The regurgitant volume (PISA) is 17 ml. The regurgitant fraction (PISA) is 33%. - Tricuspid valve: There is mild regurgitation. - Pulmonary arteries: Systolic pressure is mildly increased. The peak pressure during systole by Doppler is 37.0 mm Hg. - Compared with prior echocardiogram of 06/29/2006, ejection fraction has decreased from normal, inferior posterior wall motion abnormality is new. Study data: Transthoracic echocardiogram. Procedure: Transthoracic echocardiography was performed. Image quality was good. Complete 2D, spectral Doppler, and color flow Doppler. Location: ICU Patient status: Inpatient. Patient room number: ICU-07. Rhythm: Normal sinus rhythm. Findings Left ventricle: The cavity size is normal. Wall thickness is moderately increased. Systolic function is mildly to moderately reduced. The estimated ejection fraction is 40-45%. Regional wall motion abnormalities: Hypokinesis of the mid-apicalinferolateral and inferior myocardium. Severe hypokinesis of the entire inferior posterior myocardium. Features are consistent with a pseudonormal left ventricular filling pattern, with concomitant abnormal relaxation and increased filling pressure (grade 2 diastolic dysfunction). Doppler parameters are consistent with elevated ventricular end-diastolic filling pressure. Right ventricle: The cavity size is moderately dilated. Systolic function is low normal. Systolic pressure is mildly increased. Ventricular septum: There is septal flattening of the interventricular septum consistent with RV volume or pressure overload. Left atrium: The atrium is normal in size. Right atrium: The atrium is normal in size. Mitral valve: The leaflets are mildly thickened. There is no evidence of stenosis. There is moderate regurgitation, directed posteriorly. Aortic valve: The valve is trileaflet. The leaflets are mildly thickened. There is no evidence of stenosis. There is trace regurgitation. Tricuspid valve: The leaflets are normal thickness. There is no evidence of stenosis. There is mild regurgitation. Pulmonic valve: The leaflets are normal thickness. There is no evidence of stenosis. There is trace regurgitation. Aorta: Aortic root: The aortic root is appears normal. Ascending aorta: The ascending aorta is appears normal. Aortic arch: The aortic arch is poorly visualized and appears normal. Pericardium: There is no significant pericardial effusion. Pulmonary arteries: The main pulmonary artery is normal-sized. Systolic pressure is mildly increased. Systemic veins: Inferior vena cava: The vessel is normal in size. There is (>= 50%) respiratory change in the IVC dimension. Measurements Left ventricle Value Ref Aortic valve continued Value Ref NICOL, LAX (L) 3.8 cm 4.2 - 5.8 Peak grad, S 2.0 mm Hg ----- ESD, LAX 3.0 cm 2.5 - 4.0 LVOT/AV, VTI ratio 0.69 ----- FS, LAX (L) 19 % 25 - 43 DAVE, VTI 2.16 cm^2 ----- PW, ED, LAX (H) 1.4 cm 0.6 - 1.0 DAVE, Vmax 2.16 cm^2 ----- FS (L) 19 % 25 - 43 PW, ED (H) 1.4 cm 0.6 - 1.0 Mitral valve Value Ref E', lat derrek, TDI (L) 6.9 cm/sec >=10.0 Peak E 0.96 m/sec - ---- E/e', lat derrek, 14 Peak A 0.5 m/sec ---- - TDI Decel time 165 ms ----- E', med derrek, TDI (L) 4.5 cm/sec >=7.0 Peak grad, D 3.7 mm Hg - ---- E/e', med derrek, 21 Peak E/A ratio 1.9 ---- - TDI MR alias velocity 0.34 m/sec ----- E', avg, TDI 5.7 cm/sec MR PISA radius 0.5 cm ---- - E/e', avg, TDI (H) 17 <=14 Max MR v 4.45 m/sec - ---- Regurg VTI 138.0 cm ----- LVOT Value Ref ERO, PISA 0.12 cm^2 ----- Diam, S 2.00 cm MR vol, PISA 17 ml ----- Area 3.1 cm^2 MR fraction, PISA 33 % ----- Peak angel, S 0.53 m/sec VTI, S 11.0 cm Pulmonic valve Value Ref Mean grad, S 1 mm Hg Peak v, S 0.84 m/sec ----- SV 35 ml Peak grad, S 3.0 mm Hg ----- SV/bsa 18 ml/m^2 ME v, ED 1.6 m/sec ----- ME grad, ED 10 mm Hg ----- Ventricular septum Value Ref IVS, ED (H) 1.4 cm 0.6 - 1.0 Tricuspid valve Value Ref TR peak v (H) 3.04 m/sec <=2.8 Right ventricle Value Ref Peak RV-RA grad, S 37 mm Hg ----- NICOL, LAX 3.5 cm NICOL minor ax, A4C (H) 4.6 cm 1.9 - 3.5 Aortic root Value Ref mid Root diam 3.4 cm <4.1 Pressure, S 40 mm Hg Ascending aorta Value Ref Left atrium Value Ref AAo AP diam, S 3.4 cm ----- AP dim, ES 3.30 cm 3.00 - 4.00 Aortic arch Value Ref ML dim, A4C 4.7 cm Arch diam 2.7 cm ----- SI dim, A4C 4.6 cm Vol/bsa, ES, 1-p 27 ml/m^2 12 - 37 Decending aorta Value Ref A4C Jesse peak angel 0.58 m/sec ----- Vol/bsa, ES, A/L 27 ml/m^2 16 - 34 Pulmonary artery Value Ref Right atrium Value Ref Pressure, S 37.0 mm Hg ----- SI dim, ES 4.5 cm 3.4 - 5.3 ML dim, ES, A4C 3.5 cm 2.6 - 4.4 Inferior vena cava Value Ref Estimated RAP 3 mm Hg Diam 1.6 cm ----- Aortic valve Value Ref Derrek diam, ED 2.2 cm Peak v, S 0.77 m/sec VTI, S 16.0 cm Mean grad, S 1.0 mm Hg Legend: (L) and (H) jessica values outside specified reference range. Prepared and electronically signed by Lois Ramsay MD 12/05/2019 11:48
--- NOTE | 2019-12-05 11:51 | PN ---
Progress Note - Progress Note Date of Service: 12/05/19 Note: Progress Note -- Critical Care 24 hour events/significant events: - Patient admitted overnight for severe chest pain that woke him from his sleep. Started left lower chest and radiated across, as well as down through him abdomen. - He was started on nitrogen drip which resolved chest pain - Troponins continue to rise. He was made NPO for possible cardiac cath today - He offers no complaints. He only states that he is hungry. ROS: negative except for pertinent positives mentioned above Tele: normal sinus Vitals: Vital Signs 12/05/19 12/05/19 12/05/19 02:32 02:37 03:01 Temperature 98.1 F Pulse Rate 95 95 92 Respiratory 14 16 18 Rate Blood Pressure 115/82 (mmHg) O2 Sat by Pulse 95 94 97 Oximetry 12/05/19 12/05/19 12/05/19 03:02 03:31 04:00 Temperature Pulse Rate 94 92 102 Respiratory 23 17 23 Rate Blood Pressure 95/68 103/83 (mmHg) O2 Sat by Pulse 96 97 96 Oximetry 12/05/19 12/05/19 12/05/19 04:02 04:32 05:00 Temperature Pulse Rate 99 92 91 Respiratory 16 21 24 Rate Blood Pressure 125/94 107/78 (mmHg) O2 Sat by Pulse 98 97 93 Oximetry 12/05/19 12/05/19 12/05/19 05:02 05:05 05:15 Temperature 97.6 F Pulse Rate 78 77 85 Respiratory 19 20 16 Rate Blood Pressure 96/73 92/70 92/70 (mmHg) O2 Sat by Pulse 95 95 95 Oximetry 12/05/19 12/05/19 12/05/19 05:31 05:32 06:00 Temperature 97.8 F Pulse Rate 86 90 Respiratory 22 18 23 Rate Blood Pressure 97/81 97/81 (mmHg) O2 Sat by Pulse 95 88 Oximetry 12/05/19 12/05/19 12/05/19 06:02 06:15 06:30 Temperature Pulse Rate 84 81 85 Respiratory 9 20 18 Rate Blood Pressure 94/68 103/77 100/75 (mmHg) O2 Sat by Pulse 93 93 94 Oximetry 12/05/19 12/05/19 12/05/19 06:45 07:00 07:15 Temperature Pulse Rate 83 75 85 Respiratory 21 18 22 Rate Blood Pressure 120/77 114/74 109/72 (mmHg) O2 Sat by Pulse 94 96 94 Oximetry 12/05/19 12/05/19 12/05/19 07:30 07:45 08:00 Temperature 98.0 F Pulse Rate 84 75 86 Respiratory 24 10 24 Rate Blood Pressure 111/67 114/73 112/66 (mmHg) O2 Sat by Pulse 97 97 97 Oximetry 12/05/19 12/05/19 12/05/19 08:15 08:30 08:47 Temperature Pulse Rate 81 85 85 Respiratory 6 24 27 Rate Blood Pressure 110/70 108/72 116/87 (mmHg) O2 Sat by Pulse 93 95 91 Oximetry 12/05/19 12/05/19 12/05/19 09:00 09:15 09:30 Temperature Pulse Rate 82 81 81 Respiratory 23 25 24 Rate Blood Pressure 116/66 109/67 101/59 (mmHg) O2 Sat by Pulse 94 95 96 Oximetry 12/05/19 12/05/19 12/05/19 09:45 10:00 10:16 Temperature Pulse Rate 85 80 86 Respiratory 21 22 27 Rate Blood Pressure 114/71 106/65 111/64 (mmHg) O2 Sat by Pulse 97 93 95 Oximetry 12/05/19 12/05/19 12/05/19 10:31 10:45 11:00 Temperature Pulse Rate 89 82 89 Respiratory 16 31 20 Rate Blood Pressure 113/67 118/77 113/63 (mmHg) O2 Sat by Pulse 94 94 94 Oximetry 12/05/19 11:41 Temperature Pulse Rate Respiratory 20 Rate Blood Pressure (mmHg) O2 Sat by Pulse Oximetry Intake and Output Last 24 Hours 12/03/19 12/04/19 12/05/19 12/06/19 06:59 06:59 06:59 06:59 Intake Total 25 0 Output Total 0 125 Balance 25 -125 Weight 175 lb 14.862 oz Intake: Medicated IV 25 CC - Nitroglycerine/ 25 Tridil Oral 0 Output: Urine 0 125 Other: # Voids 1 O2: RA Infusions: Nitro @ 15 Medications: Aspirin (Aspirin 81 Mg Chew Tab*) 81 mg PO DAILY [facility] Last Admin: 12/05/19 09:49 Dose: 81 mg Atorvastatin Calcium (Lipitor*) 80 mg PO 1700 [facility] Clopidogrel Bisulfate (Plavix Tab*) 75 mg PO DAILY [facility] Nitroglycerin/Dextrose (Nitroglycerin Drip*) 25,000 mcg in 250 mls @ 6 mls/hr IV ED ONCE ONE; Protocol Stop: 12/06/19 21:13 Last Admin: 12/05/19 03:51 Dose: 6 mls/hr Sodium Chloride (Ns 0.9% 1000 Ml) 1,000 mls @ 75 mls/hr IV .per rate [facility] Last Admin: 12/05/19 09:03 Dose: 75 mls/hr Metoprolol Tartrate (Lopressor Tab*) 25 mg PO Q8H [facility] Last Admin: 12/05/19 11:08 Dose: Not Given Physical Exam: Constitutional: awake, alert, no distress, no diaphoresis Head: normocephalic, atraumatic Eyes: no pallor, no icterus ENT: dry mucous membranes Neck: soft, supple, no jvd, no stridor CVS: normal rate, regular, no murmur Chest/Resp: bilateral air entry, no rhales, no wheeze, no rhonchi, no acc muscle use Abdomen/GI: soft, nontender, nondistended, BS+ Ext/Msk: warm, pulses+, no edema Skin: intact, warm Neuro: awake, alert, orientedx3, moving all extremities, no gross focal deficit Psych: normal affect Labs: Laboratory Results - last 24 hr 12/05/19 12/05/19 12/05/19 02:45 02:45 02:45 WBC 10.4 RBC 4.09 L Hgb 13.2 L Hct 38 L MCV 92 MCH 32 H MCHC 35 RDW 14 Plt Count 214 MPV 7.7 Neut % (Auto) 81.6 Lymph % (Auto) 9.5 Murray % (Auto) 7.6 Eos % (Auto) 0.7 Baso % (Auto) 0.6 Absolute Neuts (auto) 8.5 H Absolute Lymphs (auto) 1.0 Absolute Monos (auto) 0.8 Absolute Eos (auto) 0.1 Absolute Basos (auto) 0.1 Absolute Nucleated RBC 0.0 Nucleated RBC % 0.0 INR (Anticoag Therapy) 1.16 H APTT Sodium 136 Potassium 3.4 L Chloride 100 L Carbon Dioxide 24 Anion Gap 12 H BUN 27 H Creatinine 1.67 H Est GFR ( Amer) 48.1 Est GFR (Non-Af Amer) 39.8 BUN/Creatinine Ratio 16.2 Glucose 125 H Hemoglobin A1c Lactic Acid Calcium 9.0 Magnesium Total Bilirubin 0.90 AST 43 H ALT 28 Alkaline Phosphatase 71 Troponin I 3.94 H* B-Natriuretic Peptide Total Protein 6.6 Albumin 3.6 Globulin 3.0 Albumin/Globulin Ratio 1.2 Triglycerides 149 Cholesterol 153 LDL Cholesterol 88 HDL Cholesterol 35.3 Lipase 13 Blood Type Antibody Screen 12/05/19 12/05/19 12/05/19 02:45 02:45 02:45 WBC RBC Hgb Hct MCV MCH MCHC RDW Plt Count MPV Neut % (Auto) Lymph % (Auto) Murray % (Auto) Eos % (Auto) Baso % (Auto) Absolute Neuts (auto) Absolute Lymphs (auto) Absolute Monos (auto) Absolute Eos (auto) Absolute Basos (auto) Absolute Nucleated RBC Nucleated RBC % INR (Anticoag Therapy) APTT Sodium Potassium Chloride Carbon Dioxide Anion Gap BUN Creatinine Est GFR ( Amer) Est GFR (Non-Af Amer) BUN/Creatinine Ratio Glucose Hemoglobin A1c 5.2 Lactic Acid 2.1 H* Calcium Magnesium Total Bilirubin AST ALT Alkaline Phosphatase Troponin I B-Natriuretic Peptide 375 H Total Protein Albumin Globulin Albumin/Globulin Ratio Triglycerides Cholesterol LDL Cholesterol HDL Cholesterol Lipase Blood Type Antibody Screen 12/05/19 12/05/19 12/05/19 02:45 05:39 05:39 WBC RBC Hgb Hct MCV MCH MCHC RDW Plt Count MPV Neut % (Auto) Lymph % (Auto) Murray % (Auto) Eos % (Auto) Baso % (Auto) Absolute Neuts (auto) Absolute Lymphs (auto) Absolute Monos (auto) Absolute Eos (auto) Absolute Basos (auto) Absolute Nucleated RBC Nucleated RBC % INR (Anticoag Therapy) APTT Sodium Potassium Chloride Carbon Dioxide Anion Gap BUN Creatinine Est GFR ( Amer) Est GFR (Non-Af Amer) BUN/Creatinine Ratio Glucose Hemoglobin A1c Lactic Acid 1.5 Calcium Magnesium 2.0 Total Bilirubin AST ALT Alkaline Phosphatase Troponin I 4.95 H* B-Natriuretic Peptide Total Protein Albumin Globulin Albumin/Globulin Ratio Triglycerides Cholesterol LDL Cholesterol HDL Cholesterol Lipase Blood Type O Positive Antibody Screen 12/05/19 12/05/19 12/05/19 09:24 09:38 09:38 WBC RBC Hgb Hct MCV MCH MCHC RDW Plt Count MPV Neut % (Auto) Lymph % (Auto) Murray % (Auto) Eos % (Auto) Baso % (Auto) Absolute Neuts (auto) Absolute Lymphs (auto) Absolute Monos (auto) Absolute Eos (auto) Absolute Basos (auto) Absolute Nucleated RBC Nucleated RBC % INR (Anticoag Therapy) 1.21 H APTT 41.9 H Sodium Potassium Chloride Carbon Dioxide Anion Gap BUN Creatinine Est GFR ( Amer) Est GFR (Non-Af Amer) BUN/Creatinine Ratio Glucose Hemoglobin A1c Lactic Acid Calcium Magnesium Total Bilirubin AST ALT Alkaline Phosphatase Troponin I 11.45 H* B-Natriuretic Peptide Total Protein Albumin Globulin Albumin/Globulin Ratio Triglycerides Cholesterol LDL Cholesterol HDL Cholesterol Lipase Blood Type O Positive Antibody Screen Negative Imaging: Chest xray 12/05: patchy left basilar atelectasis vs consolidation Assessment: 79M with known medical history of PVD, HTN, vertigo, ASHLEE, CKD, bladder cancer, presents on 12/05/19 after severe left sided chest pain woke him from his sleep. Pain was relieved with SL nitro, baby aspirin, and started on nitro drip. Admitted to ICU with plan for cardiac cath in the AM. He notes that he has been having intermittent chest pain for 1-2 months and was diagnosed with indigestion. He also notes tarry stools for the past several months. - CKD - NSTEMI - Chest pain Plan: Neuro- - No active issues -Delirium prec; avoid BDZ CVS- - HTN: chronic. BP has been well controlled while on nitro drip. - Will continue to hold metoprolol until after cath. BP has been on the low end of normal. - Chest pain/NSETMI: continue nitro gtt and DAPT. Plan for cardiac cath today - Troponins continue to rise - Continue dual anti-platelet therapy for now -Maintain MAP>65 as long as SBP<160 Resp- - No active issues -Keep sat>92% - Aspiration prec, Pulmonary Toilet ID- - No active issues - Goal temp<101 GI- -Nutrition: NPO until after cath -GI prophylaxis: famotidine - Stool occult per cardiology request Renal- - CKD: chronic. Supportive care. -strict I/O, replete to keep K>4, Mg>2 -Voiding Heme- - SCDs for DVT prophylaxis Endo-Maintain BG<200, insulin protocol as needed Musculsk- pressure ulcer prophylaxis. OOB as tolerated. Wounds- none Nutrition-NPO DVT prophylaxis: SCDs GI prophylaxis: famotidine Disposition: Patient requires Critical Care/ICU for chest pain, NSTEMI, nitro gtt Patient clinical status: fair Code Status:full Total Critical Care time is 30 minutes
[2019-12-05] MEDS ORDERED: Metoprolol Tartrate TAB* 25 MG PO SCH (12:00)
[2019-12-05] MEDS ORDERED: Enoxaparin(*) 80 MG/0.8 ML SYR SUBCUT SCH (13:00)
[2019-12-05] MEDS ORDERED: Acetaminophen TAB* 325 MG PO PRN (13:29)
--- NOTE | 2019-12-05 14:42 | DS ---
DISCHARGE SUMMARY ADMISSION DATE: 12/05/19 DISCHARGE DATE: 12/05/19 HOSPITAL COURSE: 79M with known medical history of PVD, HTN, HLD, bladder cancer , PE, ASHLEE, who presents early AM on 12/05/19 with complaints of severe chest pain. Around 0100 he was woken with severe left sided chest pain that radiated throughout the chest and down to his abdomen. He was given SL nitro and aspirin which helped his pain. He has had intermittent chest pain over the past 1-2 months and was diagnosed with indigestion. He also notes tarry stools for several months. EKG showed ST depressions. Troponins were elevated, 3.94-->4.95- ->11.45. He was started on nitro drip and taken to [facility]. Cath showed triple vessel disease and moderate left main. A CABG was recommended and decision made to transfer to [facility] to Dr Apurva Ley. Nitro drip will be continued during transport. DISCHARGE DIAGNOSES: 1. NSTEMI 2. Triple vessel disease 3. Chest pain SECONDARY DIAGNOSES: 1. HTN 2. Vertigo 3. PVD 4. Bladder cancer 5. ASHLEE 6. CKD
--- NOTE | 2019-12-05 15:18 | CATH ---
CC: Dr. Brown; Dr. Ramsay * CATH REPORT: DATE OF PROCEDURE: 12/05/19 - ROOM #ICU-07 PRIMARY CARE PHYSICIAN: Dr. Brown. GREY ROLL WORKER: Dr. Ramsay. PROCEDURES: 1. Right radial artery access. 2. Bilateral selective coronary cineangiography. 3. Left heart catheterization. HISTORY: An 79-year-old male with [id number] infarct. He has been on chronic Plavix therapy for prior PAD intervention. He has had accelerating symptoms for the past month, now is requiring IV nitroglycerin for symptom control. He has been on maintenance Plavix since admission. PROCEDURE ACCESS: Right radial artery sheath 6F slender. MEDICATIONS: 1. Subcu lidocaine. 2. IV Versed. 3. IV fentanyl. 4. Heparin 3000 units. 5. Verapamil 3 mg. 6. Nitroglycerin 300 mcg IA. DIAGNOSTIC CATHETER: 5F TIG4. HEMODYNAMICS: AO 94/76, LV post coronary angiography 108/21-29, no aortic valve gradient on pullback. ANGIOGRAPHY: The left coronary system is heavily calcified. Left main: The left main is moderate, calcified, probably diffusely diseased. On each engagement, there was dampening of pressure at the ostium. Angiographically, the ostium is approximately 40% to 50% stenosed. LAD: The LAD is heavily calcified, supplies a moderate mid diagonal that has 80 % proximal stenosis. The LAD beyond the diagonal has a tubular 70% stenosis before ending at the apex. Circumflex: The circumflex is relatively small in distribution, with a moderate ramus that has luminal irregularity, proximal circumflex has a tapering 70% stenosis before the origin of a moderate marginal branch which has proximal tubular 40% to 50% stenosis. The AV groove circumflex ends with an atrial branch. RCA: The RCA is large, heavily calcified, has a 95% proximal stenosis, the PDA is large with a tubular 50% stenosis followed by a shorter 70% stenosis. RCA continuation supplies two moderate posterolateral branches. CONCLUSION: 1. 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 2. [id number] infarct. 3. Impaired LV systolic function by echo. 4. Plavix will be held, he will be referred for bypass grafting. [id number] #: [id number] [facility]
[2019-12-05 15:45] VITALS: BP 100/59
[2019-12-05] MEDS ORDERED: Atorvastatin* 80 MG TAB PO SCH (17:00)
[2019-12-06] MEDS ORDERED: Clopidogrel TAB* 75 MG PO SCH (07:00)
[2019-12-06] MEDS ORDERED: Famotidine TAB* 20 MG PO SCH (09:00)
== END 2019-12-05 15:47 | disposition home or self-care (01) | DRG 282 ==
LOC: ED 02:32 → ICU 04:18
PROVIDERS: ADMIT Internal Medicine; ATTEND Internal Medicine Critical Care Medicine
PROC: B2111ZZ Fluoroscopy of Multiple Coronary Arteries using Low Osmolar Contrast (ICD-10-PCS; 2019-12-05)
PROC: 4A023N7 Measurement of Cardiac Sampling and Pressure, Left Heart, Percutaneous Approach (ICD-10-PCS; principal; 2019-12-05 11:30)
DX: I21.4 Non-ST elevation (NSTEMI) myocardial infarction (principal); I25.10 Atherosclerotic heart disease of native coronary artery without angina pectoris; I12.9 Hypertensive chronic kidney disease with stage 1 through stage 4 chronic kidney disease, or unspecified chronic kidney disease; M19.90 Unspecified osteoarthritis, unspecified site; F32.9 Major depressive disorder, single episode, unspecified; N18.3 Chronic kidney disease, stage 3 (moderate); G47.33 Obstructive sleep apnea (adult) (pediatric); I73.9 Peripheral vascular disease, unspecified; E78.5 Hyperlipidemia, unspecified; K59.00 Constipation, unspecified; R42 Dizziness and giddiness; Z86.711 Personal history of pulmonary embolism; Z87.891 Personal history of nicotine dependence; Z85.528 Personal history of other malignant neoplasm of kidney; Z85.51 Personal history of malignant neoplasm of bladder; Z90.5 Acquired absence of kidney; Z86.718 Personal history of other venous thrombosis and embolism
CPT/HCPCS: 36415; 71045; 80053; 80061; 82270; 83036; 83605; 83690; 83735; 83880; 84484; 85025; 85610; 85730; 86850; 86900; 86901; 87641; 93005; 93306; 93458; 96372; 99156; 99285; A9270-GY; J1644; J1650; J2250; J3010

== ENCOUNTER 2019-12-21 08:40 | Inpatient (IN) | payer MEDICARE ==
[2019-12-21] MEDS ORDERED: Acetaminophen TAB* 325 MG PO PRN (12:22)
[2019-12-21] MEDS: CMCS: Pravastatin (NF) 20 MG TAB PO SCH (17:21)
--- NOTE | 2019-12-21 20:31 | HP ---
HISTORY AND PHYSICAL: DATE OF ADMISSION: 12/21/19 REASON FOR ADMISSION: Coronary artery bypass graft; postop fluid overload and atrial fibrillation. HISTORY OF PRESENT ILLNESS: Zane Estrada is an 79-year-old male. He has a past medical history significant for having had a stent placed for an occluded proximal right superficial femoral artery. He was on Plavix for that. He also has a history of having his left renal artery nicked during a left kidney biopsy and he had to have a left nephrectomy following that. That was several years ago. The patient does have a history of pulmonary embolism in 2006. He also has a history of bladder cancer. He came to [facility] acutely on 12/05/19 with chest pain. EKG showed ST depressions. His troponins were elevated at 3.94. Subsequent troponins continued to rise 4.95 and peaked at 11.45. He was started on a nitro drip and taken to the cath lab radiological technologist. A cardiac catheterization showed three-vessel disease. A CABG was recommended, and he was transferred to [facility]. He was transferred on 12/05/19. He arrived at [facility]. Shortly after admission, he was complaining of again severe chest pain while on the nitro drip. He was taken to the operating room by Dr. Ley. The patient had a CABG x5. He had a LEE to the LAD, right saphenous vein graft quadruple sequence with posterior descending coronary artery to the posterolateral coronary artery to the obtuse marginal 1 and to the D1 with proximal anastomosis on the ascending aorta. The patient was transferred to the coronary intensive care unit, intubated, on Levophed and propofol. He was volume resuscitated and transfused 1 unit of packed cell. His drips were slowly weaned off, and he was extubated. He was restarted on his preoperative Plavix and diuresed. He had an unwitnessed fall while in the intensive care unit. He removed some lines on postop day 2. Workup included a CAT scan of his head and a CAT scan of his cervical spine as well as chest x- ray. It was unremarkable. He had a right-sided chest tube placed for hemothorax. The chest tube was eventually discontinued. He went into atrial fibrillation with rapid ventricular response and was started on amiodarone drip. He was eventually transpositioned to oral amiodarone and maintained normal sinus rhythm. He was aggressively diuresed. His BP was eventually stabilized and he was able to started on an KRISH inhibitor as well as his beta- leopoldo. He had abdominal pain and General Surgery consulted on him. He has a CAT scan of his abdomen done, which was negative for small bowel obstruction. He started to tolerate an oral diet and had a bowel movement. His temporary pacing wires were removed. He had intermittent nighttime confusion and was given Seroquel for that. On 12/18/19, he developed dyspnea and was found to have a right-sided pleural effusion, which was successfully drained by Interventional Radiology. Serial chest x-rays were done and he was felt to be appropriate for rehab. He was started on daily Lasix and daily Aldactone. He was transferred to the rehab unit today. PAST MEDICAL HISTORY: Significant for the aforementioned peripheral vascular disease, hypertension, hyperlipidemia, pulmonary embolus, obstructive sleep apnea, bladder cancer. MEDICATIONS: Current medications include: 1. Oral amiodarone. 2. Aspirin. 3. Plavix. 4. Cymbalta. 5. Lasix. 6. Aldactone. 7. Lisinopril. 8. Magnesium oxide. 9. Protonix. 10. Klor-Con. 11. Pravachol. 12. Seroquel. 13. Senokot. ALLERGIES: The patient has no known drug allergies. SOCIAL HISTORY: Nonsmoker, nondrinker. He lives with his in a 1-story house with 3 steps to enter. FAMILY HISTORY: Noncontributory. He has a father who had lung cancer and his mother of unknown causes. He did have a daughter who from brain tumor. REVIEW OF SYSTEMS: The patient reports no current shortness of breath or chest pain. PHYSICAL EXAMINATION VITAL SIGNS: The patient's temperature is 97.4, blood pressure is 148/74, pulse is 100, respirations 18. HEENT: His extraocular movements are intact. Tongue is midline. NECK: Supple. LUNGS: Have decreased breath sounds in the left base. HEART: Heart sounds were regular. S1 and S2 audible. ABDOMEN: Soft and nontender. EXTREMITIES: Peripheral pulses were intact. He had 1+ edema in his ankles. NEUROLOGIC: He is awake, alert, oriented. Muscle strength is about 4+/5 throughout. FUNCTIONAL EXAM: The patient transfers with max assist. ASSESSMENT: Status post non-ST elevation myocardial infarction; coronary artery bypass graft x5 with postop atrial fibrillation and volume overload. PLAN: Integrate him into a comprehensive and therapeutic rehab program with the following goals: 1. Physical Therapy will work with the patient. They are going to work on functional transfer training, ambulation training with a walker. 2. Occupational Therapy will see the patient, work on his activities of daily living including toileting and toilet transfers. 3. Heparin for DVT prophylaxis. 4. Adequate analgesia. 5. His bowels will be regulated. 6. office services clerk will be closely involved to make sure that any services and equipment the patient requires are in place prior to discharge. 7. For atrial fibrillation, continue amiodarone and Toprol. 8. For his peripheral vascular disease, continue aspirin and Plavix. 9. Continue KRISH inhibitor, aspirin, and statins for coronary artery disease. 10. Continue Cymbalta for depression. 11. Home with appropriate services. ESTIMATED LENGTH OF STAY: 14 days. [id number]/CPS #: [id number] MALIA
[2019-12-21] MEDS: Heparin VIAL(*) 5000 UNITS/ML VIAL (FIVE THOUSAND) SUBCUT SCH (20:51)
[2019-12-21] MEDS: QUEtiapine TAB* 25 MG PO SCH (20:51)
[2019-12-21] MEDS: Docusate CAP* 100 MG PO SCH (20:51)
[2019-12-21] MEDS: Amiodarone TAB* 200 MG PO SCH (20:51)
[2019-12-22] MEDS ORDERED: Ferrous Sulfate TAB* 325 MG PO SCH (09:00)
[2019-12-22] MEDS ORDERED: Magnesium Oxide TAB* 400 MG PO SCH (09:00)
[2019-12-22] MEDS ORDERED: Lisinopril TAB* 5 MG PO SCH (09:00)
[2019-12-22] MEDS ORDERED: Folic Acid TAB* 1 MG PO SCH (09:00)
[2019-12-22] MEDS: Docusate CAP* 100 MG PO SCH ×2 (10:23→20:22)
[2019-12-22] MEDS: Aspirin EC TAB* 81 MG TAB.EC PO SCH (10:23)
[2019-12-22] MEDS: Amiodarone TAB* 200 MG PO SCH ×2 (10:23→20:23)
[2019-12-22] MEDS: Clopidogrel TAB* 75 MG PO SCH (10:24)
[2019-12-22] MEDS: DULoxetine DR CAP* 60 MG CAP.DR PO SCH (10:24)
[2019-12-22] MEDS: Furosemide TAB* 20 MG PO SCH (10:26)
[2019-12-22] MEDS: Heparin VIAL(*) 5000 UNITS/ML VIAL (FIVE THOUSAND) SUBCUT SCH ×2 (10:28→20:23)
[2019-12-22] MEDS: Metoprolol Succinate XL TAB* 100 MG PO SCH (10:31)
[2019-12-22] MEDS: Pantoprazole TAB * 40 MG TAB PO SCH (10:32)
[2019-12-22] MEDS: Spironolactone TAB* 25 MG PO SCH (10:32)
[2019-12-22] MEDS: Potassium Chlor TAB* 20 MEQ TAB.ER PO SCH (10:33)
[2019-12-22 14:29] LABS: BUN/Creatinine Ratio 15.1 (8-20); Calcium 8.6 mg/dL (8.6-10.3); EGFR African American 56.2 (>60); EGFR Non-African American 46.5 (>60); Potassium 3.9 mmol/L (3.5-5.0)
--- NOTE | 2019-12-22 14:58 | PN ---
Progress Note Date of Service: 12/22/19 Note: SHARAD DIAMOND was visited. Therapy notes read and reviewed. He complains of abdominal pain from all the pills first thing in the morning. Will try to space out meds. Current Medications: Active Medications Generic Name Dose Route Start Last Admin Trade Name Freq PRN Reason Stop Dose Admin Acetaminophen 650 mg 12/21/19 12:22 Tylenol Tab* PO Q6H PRN MILD PAIN or TEMP > 100.4 Amiodarone HCl 200 mg 12/21/19 21:00 12/22/19 10:23 Cordarone Tab* PO 12/27/19 23:59 200 mg BID KARINA Administration Amiodarone HCl 200 mg 12/28/19 09:00 Cordarone Tab* PO DAILY KARINA Aspirin 81 mg 12/22/19 09:00 12/22/19 10:23 Aspirin Ec Tab* PO 81 mg DAILY KARINA Administration Clopidogrel Bisulfate 75 mg 12/22/19 09:00 12/22/19 10:24 Plavix Tab* PO 75 mg DAILY KARINA Administration Docusate Sodium 100 mg 12/21/19 21:00 12/22/19 10:23 Colace Cap* PO Not Given BID KARINA Duloxetine HCl 60 mg 12/22/19 09:00 12/22/19 10:24 Cymbalta Cap* PO 60 mg DAILY KARINA Administration Ferrous Sulfate 325 mg 12/22/19 17:00 Ferrous Sulfate Tab* PO 1700 KARINA Furosemide 20 mg 12/22/19 09:00 12/22/19 10:26 Lasix Tab* PO 20 mg DAILY KARINA Administration Heparin Sodium (Porcine) 5,000 units 12/21/19 21:00 12/22/19 10:28 Heparin Vial(*) SUBCUT 5,000 units Q12HR KARINA Administration Lisinopril 5 mg 12/23/19 21:00 Prinivil Tab* PO 2100 KARINA Magnesium Oxide 400 mg 12/23/19 17:00 Magox 400 Tab* PO 1700 KARINA Metoprolol Succinate 100 mg 12/22/19 09:00 12/22/19 10:31 Toprol Xl Tab* PO 100 mg DAILY KARINA Administration Pantoprazole Sodium 40 mg 12/22/19 09:00 12/22/19 10:32 Protonix Tab* PO 40 mg DAILY KARINA Administration Potassium Chloride 20 meq 12/22/19 09:00 12/22/19 10:33 Klor Con Er Tab* PO 20 meq DAILY KARINA Administration Pravastatin Sodium 20 mg 12/21/19 17:00 12/21/19 17:21 Pravachol (Nf) PO 20 mg 1700 KARINA Administration Quetiapine Fumarate 25 mg 12/21/19 21:00 12/21/19 20:51 Seroquel Tab* PO 25 mg BEDTIME KARINA Administration Senna 2 tab 12/21/19 12:22 Senokot 8.6 Mg Tab* PO BEDTIME PRN CONSTIPATION Spironolactone 12.5 mg 12/22/19 09:00 12/22/19 10:32 Aldactone Tab* PO 12.5 mg DAILY KARINA Administration Vital Signs: Vital Signs Temp Pulse Resp BP Pulse Ox 98.4 F 95 18 132/67 94 12/22/19 05:46 12/22/19 05:46 12/22/19 05:46 12/22/19 05:46 12/22/19 05:46 Lab Results: Laboratory Results - last 24 hr 12/22/19 14:04 Sodium 138 Potassium 3.9 Chloride 100 L Carbon Dioxide 26 Anion Gap 12 H BUN 22 Creatinine 1.46 H Est GFR ( Amer) 56.2 Est GFR (Non-Af Amer) 46.5 BUN/Creatinine Ratio 15.1 Glucose 95 Calcium 8.6 Exam: GENERAL: Alert and oriented LUNGS: Decreased BS LLE HEART: reg rhythm ABDOMEN: Distended NEUROLOGIC: alert and oriented. Muscle strength 4/5 Assessment/Plan: 1. NSTEMI, CABG x5: Toprol/ASA/Pravachol/Lisinopril. PT/OT. Sternal Precautions 2. Pleural Effeusion: Lasix/Aldoactone 3. Atrial Fib: Amiodarone/Toprol 4. PVD, S/P Stent: Plavix/ASA 5. GI Upset: Spacing out meds and eliminating unnecessary ones 6. DVT Prophylaxis: Heparin S/Q 7. Advance Directives: Full code. is surrogate decision maker 12/22/19 15:01 12/22/19 15:03
[2019-12-22] MEDS: CMCS: Pravastatin (NF) 20 MG TAB PO SCH (17:14)
[2019-12-22] MEDS: Ferrous Sulfate TAB* 325 MG PO SCH (17:16)
[2019-12-22] MEDS: QUEtiapine TAB* 25 MG PO SCH (20:23)
[2019-12-23] MEDS: Potassium Chlor TAB* 20 MEQ TAB.ER PO SCH (08:58)
[2019-12-23] MEDS: DULoxetine DR CAP* 60 MG CAP.DR PO SCH (08:58)
[2019-12-23] MEDS: Metoprolol Succinate XL TAB* 100 MG PO SCH (08:59)
[2019-12-23] MEDS: Docusate CAP* 100 MG PO SCH ×2 (08:59→20:38)
[2019-12-23] MEDS: Aspirin EC TAB* 81 MG TAB.EC PO SCH (09:00)
[2019-12-23] MEDS: Heparin VIAL(*) 5000 UNITS/ML VIAL (FIVE THOUSAND) SUBCUT SCH ×2 (09:00→20:37)
[2019-12-23] MEDS: Furosemide TAB* 20 MG PO SCH (09:00)
[2019-12-23] MEDS: Clopidogrel TAB* 75 MG PO SCH (09:00)
[2019-12-23] MEDS: Pantoprazole TAB * 40 MG TAB PO SCH (09:00)
[2019-12-23] MEDS: Amiodarone TAB* 200 MG PO SCH ×2 (09:00→20:31)
[2019-12-23] MEDS: Spironolactone TAB* 25 MG PO SCH (09:00)
--- NOTE | 2019-12-23 16:55 | PN ---
Progress Note Date of Service: 12/23/19 Note: SHARAD DIAMOND was visited. Nursing notes read and reviewed. His abdomen feels better after I changed the schedule of his medications but his appetite is still not great. He does not want Ensure Current Medications: Active Medications Generic Name Dose Route Start Last Admin Trade Name Freq PRN Reason Stop Dose Admin Acetaminophen 650 mg 12/21/19 12:22 Tylenol Tab* PO Q6H PRN MILD PAIN or TEMP > 100.4 Amiodarone HCl 200 mg 12/21/19 21:00 12/23/19 09:00 Cordarone Tab* PO 12/27/19 23:59 200 mg BID KARINA Administration Amiodarone HCl 200 mg 12/28/19 09:00 Cordarone Tab* PO DAILY KARINA Aspirin 81 mg 12/22/19 09:00 12/23/19 09:00 Aspirin Ec Tab* PO 81 mg DAILY KARINA Administration Clopidogrel Bisulfate 75 mg 12/22/19 09:00 12/23/19 09:00 Plavix Tab* PO 75 mg DAILY KARINA Administration Docusate Sodium 100 mg 12/21/19 21:00 12/23/19 08:59 Colace Cap* PO 100 mg BID KARINA Administration Duloxetine HCl 60 mg 12/22/19 09:00 12/23/19 08:58 Cymbalta Cap* PO 60 mg DAILY KARINA Administration Ferrous Sulfate 325 mg 12/22/19 17:00 12/22/19 17:16 Ferrous Sulfate Tab* PO 325 mg 1700 KARINA Administration Furosemide 20 mg 12/22/19 09:00 12/23/19 09:00 Lasix Tab* PO 20 mg DAILY KARINA Administration Heparin Sodium (Porcine) 5,000 units 12/21/19 21:00 12/23/19 09:00 Heparin Vial(*) SUBCUT 5,000 units Q12HR KARINA Administration Lisinopril 5 mg 12/23/19 21:00 Prinivil Tab* PO 2100 KARINA Magnesium Oxide 400 mg 12/23/19 17:00 Magox 400 Tab* PO 1700 KARINA Metoprolol Succinate 100 mg 12/22/19 09:00 12/23/19 08:59 Toprol Xl Tab* PO 100 mg DAILY KARINA Administration Pantoprazole Sodium 40 mg 12/22/19 09:00 12/23/19 09:00 Protonix Tab* PO 40 mg DAILY KARINA Administration Potassium Chloride 20 meq 12/22/19 09:00 12/23/19 08:58 Klor Con Er Tab* PO 20 meq DAILY KARINA Administration Pravastatin Sodium 20 mg 12/21/19 17:00 12/22/19 17:14 Pravachol (Nf) PO 20 mg 1700 KARINA Administration Quetiapine Fumarate 25 mg 12/21/19 21:00 12/22/19 20:23 Seroquel Tab* PO 25 mg BEDTIME KARINA Administration Senna 2 tab 12/21/19 12:22 Senokot 8.6 Mg Tab* PO BEDTIME PRN CONSTIPATION Spironolactone 12.5 mg 12/22/19 09:00 12/23/19 09:00 Aldactone Tab* PO 12.5 mg DAILY KARINA Administration Vital Signs: Vital Signs Temp Pulse Resp BP Pulse Ox 98.5 F 102 20 144/78 97 12/23/19 16:04 12/23/19 16:04 12/23/19 16:04 12/23/19 16:04 12/23/19 16:04 Exam: GENERAL: Alert and oriented LUNGS: Decreased BS LLE HEART: reg rhythm ABDOMEN: Soft EXTREMITIES: trace edema NEUROLOGIC: alert and oriented. Muscle strength 4/5 Assessment/Plan: 1. NSTEMI, CABG x5: Toprol/ASA/Pravachol/Lisinopril. PT/OT. Sternal Precautions 2. Pleural Effeusion: Lasix/Aldoactone 3. Atrial Fib: Amiodarone/Toprol 4. PVD, S/P Stent: Plavix/ASA 5. GI Upset: Spacing out meds and eliminating unnecessary ones 6. DVT Prophylaxis: Heparin S/Q 7. Advance Directives: Full code. is surrogate decision maker 12/23/19 16:55
[2019-12-23] MEDS: CMCS: Pravastatin (NF) 20 MG TAB PO SCH (18:20)
[2019-12-23] MEDS: Ferrous Sulfate TAB* 325 MG PO SCH (18:21)
[2019-12-23] MEDS: Magnesium Oxide TAB* 400 MG PO SCH (18:21)
[2019-12-23] MEDS: Lisinopril TAB* 5 MG PO SCH (20:31)
[2019-12-23] MEDS: QUEtiapine TAB* 25 MG PO SCH (20:32)
[2019-12-24 07:31] LABS: ABS Basophils 0.1 10^3/ul (0-0.2); ABS Eosinophils 0.3 10^3/ul (0-0.6); ABS Lymphocytes 0.9 10^3/ul (1.0-4.8); ABS Monocytes 0.7 10^3/ul (0-0.8); ABS Neutrophils 5.4 10^3/ul (1.5-7.7); Eosinophil % 3.6 %; Hematocrit 31 % (42-52); Hemoglobin 10.7 g/dL (14.0-18.0); Lymphocyte % 12.8 %; Mean Corpuscular HGB Conc 34 g/dL (31-36); Mean Corpuscular Hemoglobin 30 pg (27-31); Mean Corpuscular Volume 89 fL (80-94); Mean Platelet Volume 6.6 fL (7.4-10.4); Nucleated Red Blood Cells % 0.1; Platelet Count 525 10^3/uL (150-450); Red Blood Count 3.53 10^6 /uL (4.18-5.48); Red Cell Distribution Width 16 % (10-15); White Blood Count 7.3 10^3/uL (3.5-10.8)
[2019-12-24 07:50] LABS: Albumin 2.9 g/dL (3.2-5.2); Albumin/Globulin Ratio 0.9 (1-3); BUN/Creatinine Ratio 14.3 (8-20); Calcium 8.6 mg/dL (8.6-10.3); EGFR African American 55.8 (>60); EGFR Non-African American 46.1 (>60); Globulin 3.1 g/dL (2-4); Magnesium 1.7 mg/dL (1.9-2.7); Potassium 3.9 mmol/L (3.5-5.0); Total Bilirubin 0.8 mg/dL (0.2-1.0)
[2019-12-24] MEDS: Clopidogrel TAB* 75 MG PO SCH (10:35)
[2019-12-24] MEDS: Amiodarone TAB* 200 MG PO SCH ×2 (10:35→20:02)
[2019-12-24] MEDS: DULoxetine DR CAP* 60 MG CAP.DR PO SCH (10:35)
[2019-12-24] MEDS: Furosemide TAB* 20 MG PO SCH (10:35)
[2019-12-24] MEDS: Heparin VIAL(*) 5000 UNITS/ML VIAL (FIVE THOUSAND) SUBCUT SCH ×2 (10:35→20:04)
[2019-12-24] MEDS: Aspirin EC TAB* 81 MG TAB.EC PO SCH (10:35)
[2019-12-24] MEDS: Spironolactone TAB* 25 MG PO SCH (10:36)
[2019-12-24] MEDS: Pantoprazole TAB * 40 MG TAB PO SCH (10:36)
[2019-12-24] MEDS: Metoprolol Succinate XL TAB* 100 MG PO SCH (10:36)
[2019-12-24] MEDS: Potassium Chlor TAB* 20 MEQ TAB.ER PO SCH (10:36)
[2019-12-24] MEDS: Docusate CAP* 100 MG PO SCH ×2 (10:56→20:02)
--- NOTE | 2019-12-24 12:54 | PMRUTEAM ---
PMRU: Team Meeting Current Status: Physical Therapy: Current Status Current Rolling Status Supervision/Touching Current Supine <-> Sit Status Dependent Current Sit <-> Stand Status Substantial/Maximal Current Bed <-> Chair Status Substantial/Maximal Transfer/Bed Mobility None Recommended Devices Current Picking Up Object Dependent Status Current Car Transfer Status Dependent Current Ambulation Assistance Substantial/Maximal Status Ambulation Assistive Device None Current Ambulation Distance 5' Current Wheelchair Propulsion Not Applicable Ability Status Current Stair Climbing Status Dependent Stair Climbing Assistive Left Railing,Right Railing Devices Number of Stairs Climbed 1 Current Curb Assistance Status Dependent Curb Assistive Devices None Objective Comments Pt's present throughout session. Pt and able to verbalize sternal precautions within session. Occupational Therapy: Current Status Current Upper Body Dressing Dependent Status Current Lower Body Dressing Dependent Status Current Footwear Status Dependent Current Bathing Status Dependent Current Grooming Status Partial/Moderate Current Toileting Status Dependent Current Toilet Transfer Status Dependent Current Eating Status Setup or Clean-up Assist Nursing: Current Status Skin Deviations [Left Flank] Bruise Skin Deviations [Left Lower Bruise Abdomen] Skin Deviations [Upper Abdomen Previous Access Point ] Skin Deviations [Left Lower Incision Breast] Skin Deviations [Right Upper Previous Access Point Arm] Skin Deviations [Right Lower Other Back] Skin Deviations [Midline Chest Incision ] Skin Deviation Description [ scab over Left Lower Abdomen] Skin Deviation Description [ status post surgery Upper Abdomen] Skin Deviation Description [ status post thoracentesis Left Lower Breast] Skin Deviation Description [ little bruised and pink Right Upper Arm] Skin Deviation Description [ pt had thoracentisis done, drain access Right Lower Back] Skin Deviation Description [ steri strips in place - mild bloody drainage Midline Chest] surrounding strips - dry and intact Social Work: Current Status Discharge Plan return home with home care svs and family support Potential for Family Training pt's is involved and supportive Anticipated Discharge Home Destination Discharge With home care svs and family support Goals: Physical Therapy: Goals Goals to Be Accomplished in ( 10-14 Days) Goal: Rolling Assistance Independent Goal Supine <-> Sit Status Independent Goal Sit <-> Stand Status Independent Goal Bed <-> Chair Status Independent Transfer/Bed Mobility Straight Cane Recommended Devices Goal: Picking Up Object Independent Goal: Car Transfer Status Setup or Clean-up Assist Goal: Ambulation Assistance Independent Ambulation Assistive Devices Straight Cane Ambulation Distance (ft) 150' Goal: Wheelchair Propulsion Not Applicable Ability Goal: Stairs Assistance Supervision/Touching Stairs Recommended Devices Two Rails Number of Stairs 5 Goal: Curb Assistance Supervision/Touching Goal: Home Exercise Program Independent Assistance Occupational Therapy: Goals Goals to be Completed in (Days 10-14 days ) Goal Upper Body Dressing Independent Routine Goal Lower Body Dressing Independent Routine Goal Footwear Status Independent Goal Bathing Routine (OT) Independent Goal Grooming Routine Independent Goal Toilet Hygiene and Independent Clothing Management Routine Goal Toilet Transfer Routine Independent Goal Functional Transfers for Independent ADL Goal Feeding Routine Independent Goal Light Housekeeping Tasks Not Applicable Light Housekeeping Tasks pts completes all household tasks Assistive Devices Social Work: Goals Discharge Plan return home with home care svs and family support Potential for Family Training pt's is involved and supportive Anticipated Discharge Home Destination Discharge With home care svs and family support Care Plan: Care Plan ADL's - Improve/Maintain Start: 12/21/19 15:47 Freq: DAILY@[id number],1900 Status: Active Target: 12/22/19 Protocol: Activity Type Activity Date Activity User E-Sign Co-Sign Detail Recorded Client Recorded Date Recorded By Document 12/21/19 15:47 [id number] 12/21/19 15:47 [id number] 12/21/19 15:47 PMRU Outcome: ADL's/ADL Transfers Orders/Interventions Occupational Therapy Evaluation & Treatment Device Yes Address Deficits Secondary To: CABG x5 Patient to receive OT 5x/wk for 60-120 Therex min/day Self Care Management Group Therapy UE/LE ADL's with Assist Yes: Independent ADL Transfers with Assist Yes: Independent Toileting: Transfers,Clothing Management Yes: ,Hygeine w/Assist Independent Light Kitchen/Laundry w/Assist Yes: totalA Other Outcome/Goals Pt is an 79 y/o male s/p CABG x5 presenting with sternal precautions, limited endurance, decreased strength, balance deficits, increased pain, and decreased strength/core strength affecting bathing, toileting, dressing and functional mobility/ transfers. Pt presents with difficulty maintaining his sternal precautions with bed mobility and transfers. Cues provided. Pt will benefit from skilled OT services in a rehabiliation setting to maximize indpeendence with ADL routine. Pt and pts agreeable to OT POC. Progression Toward Outcome/Goals Goal Initiation Cardiovascular- Improve/Maintain Start: 12/21/19 18:08 Freq: DAILY@[id number] Status: Active Target: 01/04/20 Protocol: Activity Type Activity Date Activity User E-Sign Co-Sign Detail Recorded Client Recorded Date Recorded By Document 12/24/19 07:00 [id number] 12/24/19 11:25 [id number] 12/24/19 07:00 PMRU Outcome: Cardiovascular Vital Signs q Shift for 48hrs Then BID Yes Daily Weight Ordered No Current Cardiovascular Outcome/Goal Maintain/ Achieve Baseline HR, BP , Perfusion Free of Abnormal Cardiac Symptoms Progression Toward Outcome/Goal Progressing DVT Prophylaxis- Improve/Maintain Start: 12/21/19 18:08 Freq: [id number] Status: Active Target: 01/04/20 Protocol: Activity Type Activity Date Activity User E-Sign Co-Sign Detail Recorded Client Recorded Date Recorded By Document 12/24/19 07:00 [id number] 12/24/19 11:25 [id number] 12/24/19 07:00 PMRU Outcome: DVT Prophylaxis Current DVT Outcome/Goals Remains Free of DVT Complies with DVT Prophylaxis /Treatment Demonstrates Knowledge of DVT Prevention/ Treatment Progression Toward Outcome/Goals Progressing Discharge Planning - Improve/Maintain Start: 12/21/19 18:08 Freq: DAILY@ Status: Active Target: 01/04/20 Protocol: Activity Type Activity Date Activity User E-Sign Co-Sign Detail Recorded Client Recorded Date Recorded By Document 12/24/19 07:00 [id number] 12/24/19 11:25 [id number] 12/24/19 07:00 PMRU Outcome: Discharge Planning Update Patient Family No Current Discharge Planning Outcome/Goals Demonstrates Understanding of Discharge Plan Progression Toward Outcome/Goals Progressing Education-Improve/Maintain Start: 12/21/19 18:08 Freq: DAILY@ Status: Active Target: 01/04/20 Protocol: Activity Type Activity Date Activity User E-Sign Co-Sign Detail Recorded Client Recorded Date Recorded By Document 12/24/19 07:00 [id number] 12/24/19 11:25 [id number] 12/24/19 07:00 PMRU Outcome: Education Current Education Outcome/Goals Demonstrate/ Verbalize Understanding of Written Discharge Instructions Encourage Questions Progression Toward Outcome/Goals Progressing Mobility- Improve/Maintain Start: 12/21/19 17:09 Freq: DAILY@ Status: Active Target: 12/22/19 Protocol: Activity Type Activity Date Activity User E-Sign Co-Sign Detail Recorded Client Recorded Date Recorded By Document 12/21/19 17:09 [id number] 12/21/19 17:10 [id number] 12/21/19 17:09 PMRU Outcome: Mobility Physical Therapy Evaluation and Yes Treatment Activity OOB with Assistance Yes WBAT Yes NWB No TTWB No Device Yes Assistance Yes Patient to be seen 5x/wk for 60-120 min/ Therex day for: Mobility Training Gait Training Balance Current Mobility Outcome/Goals Maintain/ Achieve Baseline Mobility Status Improve Mobility Status Demonstrates Proper Use of Assistive Devices Free from Complications of Immobility Progression Toward Outcome/Goals Goal Initiation Bed Mobility Yes: Independent Transfers Yes: Independent with LRD Gait x ft Yes: 150' Independent with LRD W/C Mobility x ft No Up/Down Stairs Yes: Supervision, 5 steps with 2 rail With HEP Yes: Independent Nutrition/Swallowing- Improve/Maintain Start: 12/21/19 18:08 Freq: DAILY@ Status: Active Target: 01/04/20 Protocol: Activity Type Activity Date Activity User E-Sign Co-Sign Detail Recorded Client Recorded Date Recorded By Document 12/24/19 07:00 [id number] 12/24/19 11:25 [id number] 12/24/19 07:00 PMRU Outcome: Nutrition/Swallowing Current Nutrition/Swallowing Outcome/ Demonstrates Goals Adequate Hydration/ Prevents Dehydration Progression Toward Outcome/Goals Progressing Pain/Comfort- Improve/Maintain Start: 12/21/19 18:08 Freq: DAILY@ Status: Active Target: 01/04/20 Protocol: Activity Type Activity Date Activity User E-Sign Co-Sign Detail Recorded Client Recorded Date Recorded By Document 12/24/19 07:00 [id number] 12/24/19 11:25 [id number] 12/24/19 07:00 PMRU Outcome: Pain/Comfort Current Pain/Comfort Outcome/Goals Demonstrates Knowledge and Use of Available Comfort Measures Achieves Acceptable Comfort/Pain Level as Determined by Patient/Condit Maintain Comfort Level Allowing Patient to Fully Participate in Rehab Progression Toward Outcome/Goals Progressing Outcome/Goals Met Comment pt resting Rec Therapy- Improve/Maintain Start: 12/21/19 16:00 Freq: DAILY@[id number] Status: Active Target: 12/25/19 Protocol: Activity Type Activity Date Activity User E-Sign Co-Sign Detail Recorded Client Recorded Date Recorded By Document 12/21/19 16:00 [id number] 12/21/19 16:00 [id number] 12/21/19 16:00 PMRU Outcome: Recreation Therapy Current Rec Ther Outcome/Goals Complete Rec Therapy Assessment Meet with Patient Regularly for Support Encourage Leisure Involvement Progression Toward Outcome/Goals Goal Initiation Safety- Improve/Maintain Start: 12/21/19 10:58 Freq: DAILY@[id number] Status: Active Target: 01/04/20 Protocol: Activity Type Activity Date Activity User E-Sign Co-Sign Detail Recorded Client Recorded Date Recorded By Document 12/24/19 07:00 [id number] 12/24/19 11:25 [id number] 12/24/19 07:00 PMRU Outcome: Safety Current Safety Outcome/Goals Remain Free of Injury or Harm Cooperates with Safety Measures for Least Restrictive Environment Prevent Falls/ Injury Progression Toward Outcome/Goals Progressing Outcome/Goals Met Comment BA armed Skin- Improve/Maintain Start: 12/21/19 18:08 Freq: DAILY@ Status: Active Target: 01/04/20 Protocol: Activity Type Activity Date Activity User E-Sign Co-Sign Detail Recorded Client Recorded Date Recorded By Document 12/24/19 07:00 [id number] 12/24/19 11:25 [id number] 12/24/19 07:00 PMRU Outcome: Skin Skin Risk Level Mild Risk Current Skin Outcome/Goals Maintain/ Improve Skin Integrity Free from Pressure Injury Progression Toward Outcome/Goals Progressing - Interdisciplinary Staff Present Pest Control Service Sales Agent/Social Work Staff Present: Sarah Rabago LMSW OT Staff Present: My Roe PT Staff Present: James Reese [facility] Medicine Note: Length of Stay: 2 weeks Anticipated Discharge Destination: Home Tentative Discharge Date: January 08, 2020 Discharged to: Home
[2019-12-24] MEDS: CMCS: Pravastatin (NF) 20 MG TAB PO SCH (18:09)
[2019-12-24] MEDS: Magnesium Oxide TAB* 400 MG PO SCH (18:09)
[2019-12-24] MEDS: Ferrous Sulfate TAB* 325 MG PO SCH (18:09)
--- NOTE | 2019-12-24 18:37 | PN ---
Progress Note Date of Service: 12/24/19 Note: SHARAD DIAMOND was visited. Therapy notes read and reviewed. He was discussed in interdisciplinary plan of care rounds. He is doing ok but fatigues easily. Current Medications: Active Medications Generic Name Dose Route Start Last Admin Trade Name Freq PRN Reason Stop Dose Admin Acetaminophen 650 mg 12/21/19 12:22 Tylenol Tab* PO Q6H PRN MILD PAIN or TEMP > 100.4 Amiodarone HCl 200 mg 12/21/19 21:00 12/24/19 10:35 Cordarone Tab* PO 12/27/19 23:59 200 mg BID KARINA Administration Amiodarone HCl 200 mg 12/28/19 09:00 Cordarone Tab* PO DAILY KARINA Aspirin 81 mg 12/22/19 09:00 12/24/19 10:35 Aspirin Ec Tab* PO 81 mg DAILY KARINA Administration Clopidogrel Bisulfate 75 mg 12/22/19 09:00 12/24/19 10:35 Plavix Tab* PO 75 mg DAILY KARINA Administration Docusate Sodium 100 mg 12/21/19 21:00 12/24/19 10:56 Colace Cap* PO Not Given BID KARINA Duloxetine HCl 60 mg 12/22/19 09:00 12/24/19 10:35 Cymbalta Cap* PO 60 mg DAILY KARINA Administration Ferrous Sulfate 325 mg 12/22/19 17:00 12/24/19 18:09 Ferrous Sulfate Tab* PO 325 mg 1700 KARINA Administration Furosemide 20 mg 12/22/19 09:00 12/24/19 10:35 Lasix Tab* PO 20 mg DAILY KARINA Administration Heparin Sodium (Porcine) 5,000 units 12/21/19 21:00 12/24/19 10:35 Heparin Vial(*) SUBCUT 5,000 units Q12HR KARINA Administration Lisinopril 5 mg 12/23/19 21:00 12/23/19 20:31 Prinivil Tab* PO 5 mg 2100 KARINA Administration Magnesium Oxide 400 mg 12/23/19 17:00 12/24/19 18:09 Magox 400 Tab* PO 400 mg 1700 KARINA Administration Metoprolol Succinate 100 mg 12/22/19 09:00 12/24/19 10:36 Toprol Xl Tab* PO 100 mg DAILY KARINA Administration Pantoprazole Sodium 40 mg 12/22/19 09:00 12/24/19 10:36 Protonix Tab* PO 40 mg DAILY KARINA Administration Potassium Chloride 20 meq 12/22/19 09:00 12/24/19 10:36 Klor Con Er Tab* PO 20 meq DAILY KARINA Administration Pravastatin Sodium 20 mg 12/21/19 17:00 12/24/19 18:09 Pravachol (Nf) PO 20 mg 1700 KARINA Administration Quetiapine Fumarate 25 mg 12/21/19 21:00 12/23/19 20:32 Seroquel Tab* PO 25 mg BEDTIME KARINA Administration Senna 2 tab 12/21/19 12:22 Senokot 8.6 Mg Tab* PO BEDTIME PRN CONSTIPATION Spironolactone 12.5 mg 12/22/19 09:00 12/24/19 10:36 Aldactone Tab* PO 12.5 mg DAILY KARINA Administration Vital Signs: Vital Signs Temp Pulse Resp BP Pulse Ox 97.9 F 91 20 143/79 96 12/24/19 16:10 12/24/19 16:10 12/24/19 16:10 12/24/19 16:10 12/24/19 16:10 Lab Results: Laboratory Results - last 24 hr 12/24/19 12/24/19 07:23 07:23 WBC 7.3 RBC 3.53 L Hgb 10.7 L Hct 31 L MCV 89 MCH 30 MCHC 34 RDW 16 H Plt Count 525 H D MPV 6.6 L Neut % (Auto) 73.2 Lymph % (Auto) 12.8 Terry % (Auto) 9.7 Eos % (Auto) 3.6 Baso % (Auto) 0.7 Absolute Neuts (auto) 5.4 Absolute Lymphs (auto) 0.9 L Absolute Monos (auto) 0.7 Absolute Eos (auto) 0.3 Absolute Basos (auto) 0.1 Absolute Nucleated RBC 0.0 Nucleated RBC % 0.1 Sodium 140 Potassium 3.9 Chloride 100 L Carbon Dioxide 28 Anion Gap 12 H BUN 21 Creatinine 1.47 H Est GFR ( Amer) 55.8 Est GFR (Non-Af Amer) 46.1 BUN/Creatinine Ratio 14.3 Glucose 88 Calcium 8.6 Magnesium 1.7 L Total Bilirubin 0.80 AST 19 ALT 14 Alkaline Phosphatase 66 Total Protein 6.0 L Albumin 2.9 L Globulin 3.1 Albumin/Globulin Ratio 0.9 L Exam: GENERAL: Alert and oriented LUNGS: Decreased BS LLE HEART: reg rhythm ABDOMEN: Soft EXTREMITIES: trace edema NEUROLOGIC: alert and oriented. Muscle strength 4/5 Assessment/Plan: 1. NSTEMI, CABG x5: Toprol/ASA/Pravachol/Lisinopril. PT/OT. Sternal Precautions 2. Pleural Effeusion: Lasix/Aldoactone 3. Atrial Fib: Amiodarone/Toprol 4. PVD, S/P Stent: Plavix/ASA 5. GI Upset: Spacing out meds and eliminating unnecessary ones 6. DVT Prophylaxis: Heparin S/Q 7. Advance Directives: Full code. is surrogate decision maker 12/24/19 18:38
[2019-12-24] MEDS: Lisinopril TAB* 5 MG PO SCH (20:02)
[2019-12-24] MEDS: QUEtiapine TAB* 25 MG PO SCH (20:02)
[2019-12-25] MEDS: Potassium Chlor TAB* 20 MEQ TAB.ER PO SCH (09:32)
[2019-12-25] MEDS: Aspirin EC TAB* 81 MG TAB.EC PO SCH (09:32)
[2019-12-25] MEDS: Clopidogrel TAB* 75 MG PO SCH (09:33)
[2019-12-25] MEDS: Furosemide TAB* 20 MG PO SCH (09:33)
[2019-12-25] MEDS: Pantoprazole TAB * 40 MG TAB PO SCH (09:33)
[2019-12-25] MEDS: Amiodarone TAB* 200 MG PO SCH ×2 (09:34→21:26)
[2019-12-25] MEDS: Docusate CAP* 100 MG PO SCH ×2 (09:34→21:26)
[2019-12-25] MEDS: Heparin VIAL(*) 5000 UNITS/ML VIAL (FIVE THOUSAND) SUBCUT SCH ×2 (09:35→21:29)
[2019-12-25] MEDS: Spironolactone TAB* 25 MG PO SCH (09:37)
[2019-12-25] MEDS: Metoprolol Succinate XL TAB* 100 MG PO SCH (09:37)
[2019-12-25] MEDS: DULoxetine DR CAP* 60 MG CAP.DR PO SCH (09:37)
--- NOTE | 2019-12-25 12:38 | PMRUTEAM ---
PMRU: Team Meeting Current Status: Physical Therapy: Current Status Current Rolling Status Substantial/Maximal Current Supine <-> Sit Status Partial/Moderate Current Sit <-> Stand Status Partial/Moderate Current Bed <-> Chair Status Partial/Moderate Transfer/Bed Mobility None Recommended Devices Transfer Mobility Comment Attempted SPT mod A x 2 pt. unable to pick out hand feet Pt. c/o being dizzy . Current Picking Up Object Not attempted Status Current Car Transfer Status Dependent Current Ambulation Assistance Partial/Moderate Status Ambulation Assistive Device None Current Ambulation Distance 8' and 10 ' 3/9 20 . 3/10 / 20 Pt. just able to color strainer // bars x 2. 1 min Ambulation Comment Pt. has poor dynamic standing balance tends to fall backwards can't self c. Current Wheelchair Propulsion Not Applicable Ability Status Current Stair Climbing Status Not attempted Stair Climbing Assistive Left Railing,Right Railing Devices Number of Stairs Climbed 1 Current Curb Assistance Status Not attempted Curb Assistive Devices None Objective Comments Pt's present throughout session. Pt and able to verbalize sternal precautions within session during eval. Occupational Therapy: Current Status Current Upper Body Dressing Substantial/Maximal Status Current Lower Body Dressing Dependent Status Current Footwear Status Dependent Current Bathing Status Dependent Current Grooming Status Setup or Clean-up Assist Current Toileting Status Dependent Current Toilet Transfer Status Dependent Current Eating Status Independent Nursing: Current Status Skin Deviations [Left Flank] Bruise Skin Deviations [Left Lower Bruise Abdomen] Skin Deviations [Upper Abdomen Previous Access Point ] Skin Deviations [Left Lower Incision Breast] Skin Deviations [Right Upper Previous Access Point Arm] Skin Deviations [Right Lower Other Back] Skin Deviations [Midline Chest Incision ] Skin Deviation Description [ scab over Left Lower Abdomen] Skin Deviation Description [ status post surgery Upper Abdomen] Skin Deviation Description [ status post thoracentesis Left Lower Breast] Skin Deviation Description [ picc D/C Right Upper Arm] Skin Deviation Description [ pt had thoracentisis done, drain access Right Lower Back] Skin Deviation Description [ healing - steristrips in place Midline Chest] Bladder Current Status dependent/uses urinal Bowel Current Status dependent Nutrition Current Status 50% Medication Current Status dependent Rec Therapy: Current Status Summary of Assessment and Recreation therapy assessment complete and pt is Clinical Impression aware of services. Pt is open to continued leisure visits, but declined pet therapy at this time. Treatment Goals Pt will engaged in leisure activities while on the unit, as tolerated Treatment Plan Provide recreation therapy services and encourage involvement Social Work: Current Status Discharge Plan return home with home care svs and family support Potential for Family Training pt's is involved and supportive Anticipated Discharge Home Destination Discharge With home care svs and family support Nutrition: Current Status Monitoring pt adm to PMRU 12/20. Initial nutrition assessment planned 12/27 per NDS protocol. Thus far, seems to have a fair appettite; receiving heart healthy diet, no caffeine. Labs and meds reviewed; receiving Lasix + K supplementation. Serum K 3.9 yesterday; will cont to follow weekly labs. Goals: Physical Therapy: Goals Goals to Be Accomplished in ( 10-14 Days) Goal: Rolling Assistance Independent Goal Supine <-> Sit Status Independent Goal Sit <-> Stand Status Independent Goal Bed <-> Chair Status Independent Transfer/Bed Mobility None Recommended Devices Goal: Picking Up Object Independent Goal: Car Transfer Status Setup or Clean-up Assist Goal: Ambulation Assistance Independent Ambulation Assistive Devices Railings Ambulation Distance (ft) 150' Goal: Wheelchair Propulsion Not Applicable Ability Goal: Stairs Assistance Supervision/Touching Stairs Recommended Devices Two Rails Number of Stairs 5 Goal: Curb Assistance Supervision/Touching Goal: Home Exercise Program Independent Assistance Occupational Therapy: Goals Goals to be Completed in (Days 10-14 days ) Goal Upper Body Dressing Partial/Moderate Routine Goal Lower Body Dressing Partial/Moderate Routine Goal Footwear Status Partial/Moderate Goal Bathing Routine (OT) Partial/Moderate Goal Grooming Routine Setup or Clean-up Assist Goal Toilet Hygiene and Independent Clothing Management Routine Goal Toilet Transfer Routine Independent Goal Functional Transfers for Independent ADL Goal Feeding Routine Independent Goal Light Housekeeping Tasks Not Applicable Light Housekeeping Tasks pts completes all household tasks Assistive Devices Goals Comment Pts completes all housekeeping tasks at home at baseline Nutrition: Goals Intervention Goals 1. adequate intake to support hydration and lean body mass without add'l wt gain 2. achieve and maintain serum electrolytes WNL 3. regulation of bowel pattern; no c/o constipation (or diarrhea) Social Work: Goals Discharge Plan return home with home care svs and family support Potential for Family Training pt's is involved and supportive Anticipated Discharge Home Destination Discharge With home care svs and family support Nursing: Goals Bladder Goal independent Bowel Goal independent Nutrition Goal 100% of meals eaten Medication Goal helps with medications Care Plan: Care Plan ADL's - Improve/Maintain Start: 12/21/19 15:47 Freq: [id number] Status: Active Target: 12/22/19 Protocol: Activity Type Activity Date Activity User E-Sign Co-Sign Detail Recorded Client Recorded Date Recorded By Document 12/24/19 16:08 [id number] 12/24/19 16:08 [id number] 12/24/19 16:08 PMRU Outcome: ADL's/ADL Transfers Orders/Interventions Occupational Therapy Evaluation & Treatment Device Yes Address Deficits Secondary To: CABG x5 Patient to receive OT 5x/wk for 60-120 Therex min/day Self Care Management Group Therapy UE/LE ADL's with Assist Yes: Independent ADL Transfers with Assist Yes: Independent Toileting: Transfers,Clothing Management Yes: ,Hygeine w/Assist Independent Light Kitchen/Laundry w/Assist Yes: totalA Other Outcome/Goals Pt demonstrates difficulty tolerating therapy this date. Continues to require increased rest breaks. 2 assist for all transfers and standing balance at this time. Progression Toward Outcome/Goals Progressing Cardiovascular- Improve/Maintain Start: 12/21/19 18:08 Freq: [id number] Status: Active Target: 01/04/20 Protocol: Activity Type Activity Date Activity User E-Sign Co-Sign Detail Recorded Client Recorded Date Recorded By Document 12/25/19 00:46 [id number] 12/25/19 00:46 [id number] 12/25/19 00:46 PMRU Outcome: Cardiovascular Vital Signs q Shift for 48hrs Then BID Yes Daily Weight Ordered No Current Cardiovascular Outcome/Goal Maintain/ Achieve Baseline HR, BP , Perfusion Free of Abnormal Cardiac Symptoms Progression Toward Outcome/Goal Progressing DVT Prophylaxis- Improve/Maintain Start: 12/21/19 18:08 Freq: [id number] Status: Active Target: 01/04/20 Protocol: Activity Type Activity Date Activity User E-Sign Co-Sign Detail Recorded Client Recorded Date Recorded By Document 12/25/19 00:46 [id number] 12/25/19 00:46 [id number] 12/25/19 00:46 PMRU Outcome: DVT Prophylaxis Current DVT Outcome/Goals Remains Free of DVT Complies with DVT Prophylaxis /Treatment Demonstrates Knowledge of DVT Prevention/ Treatment Progression Toward Outcome/Goals Progressing Discharge Planning - Improve/Maintain Start: 12/21/19 18:08 Freq: [id number] Status: Active Target: 01/04/20 Protocol: Activity Type Activity Date Activity User E-Sign Co-Sign Detail Recorded Client Recorded Date Recorded By Document 12/25/19 00:46 [id number] 12/25/19 00:46 [id number] 12/25/19 00:46 PMRU Outcome: Discharge Planning Update Patient Family No Current Discharge Planning Outcome/Goals Demonstrates Understanding of Discharge Plan Progression Toward Outcome/Goals Progressing Education-Improve/Maintain Start: 12/21/19 18:08 Freq: [id number] Status: Active Target: 01/04/20 Protocol: Activity Type Activity Date Activity User E-Sign Co-Sign Detail Recorded Client Recorded Date Recorded By Document 12/25/19 00:46 [id number] 12/25/19 00:46 [id number] 12/25/19 00:46 PMRU Outcome: Education Current Education Outcome/Goals Demonstrate/ Verbalize Understanding of Written Discharge Instructions Encourage Questions Progression Toward Outcome/Goals Progressing Mobility- Improve/Maintain Start: 12/21/19 17:09 Freq: [id number] Status: Active Target: 12/22/19 Protocol: Activity Type Activity Date Activity User E-Sign Co-Sign Detail Recorded Client Recorded Date Recorded By Document 12/21/19 17:09 [id number] 12/21/19 17:10 [id number] 12/21/19 17:09 PMRU Outcome: Mobility Physical Therapy Evaluation and Yes Treatment Activity OOB with Assistance Yes WBAT Yes NWB No TTWB No Device Yes Assistance Yes Patient to be seen 5x/wk for 60-120 min/ Therex day for: Mobility Training Gait Training Balance Current Mobility Outcome/Goals Maintain/ Achieve Baseline Mobility Status Improve Mobility Status Demonstrates Proper Use of Assistive Devices Free from Complications of Immobility Progression Toward Outcome/Goals Goal Initiation Bed Mobility Yes: Independent Transfers Yes: Independent with LRD Gait x ft Yes: 150' Independent with LRD W/C Mobility x ft No Up/Down Stairs Yes: Supervision, 5 steps with 2 rail With HEP Yes: Independent Nutrition/Swallowing- Improve/Maintain Start: 12/21/19 18:08 Freq: [id number] Status: Active Target: 01/04/20 Protocol: Activity Type Activity Date Activity User E-Sign Co-Sign Detail Recorded Client Recorded Date Recorded By Document 12/25/19 00:46 [id number] 12/25/19 00:46 [id number] 12/25/19 00:46 PMRU Outcome: Nutrition/Swallowing Current Nutrition/Swallowing Outcome/ Demonstrates Goals Adequate Hydration/ Prevents Dehydration Progression Toward Outcome/Goals Progressing Pain/Comfort- Improve/Maintain Start: 12/21/19 18:08 Freq: [id number] Status: Active Target: 01/04/20 Protocol: Activity Type Activity Date Activity User E-Sign Co-Sign Detail Recorded Client Recorded Date Recorded By Document 12/25/19 00:46 [id number] 12/25/19 00:46 [id number] 12/25/19 00:46 PMRU Outcome: Pain/Comfort Current Pain/Comfort Outcome/Goals Demonstrates Knowledge and Use of Available Comfort Measures Achieves Acceptable Comfort/Pain Level as Determined by Patient/Condit Maintain Comfort Level Allowing Patient to Fully Participate in Rehab Progression Toward Outcome/Goals Progressing Rec Therapy- Improve/Maintain Start: 12/21/19 16:00 Freq: [id number] Status: Active Target: 12/25/19 Protocol: Activity Type Activity Date Activity User E-Sign Co-Sign Detail Recorded Client Recorded Date Recorded By Document 12/21/19 16:00 [id number] [email or web address] 12/21/19 16:00 [id number] 12/21/19 16:00 PMRU Outcome: Recreation Therapy Current Rec Ther Outcome/Goals Complete Rec Therapy Assessment Meet with Patient Regularly for Support Encourage Leisure Involvement Progression Toward Outcome/Goals Goal Initiation Safety- Improve/Maintain Start: 12/21/19 10:58 Freq: [id number] Status: Active Target: 01/04/20 Protocol: Activity Type Activity Date Activity User E-Sign Co-Sign Detail Recorded Client Recorded Date Recorded By Document 12/25/19 00:46 [id number] 12/25/19 00:46 [id number] 12/25/19 00:46 PMRU Outcome: Safety Current Safety Outcome/Goals Remain Free of Injury or Harm Cooperates with Safety Measures for Least Restrictive Environment Prevent Falls/ Injury Progression Toward Outcome/Goals Progressing Outcome/Goals Met Comment BA armed Skin- Improve/Maintain Start: 12/21/19 18:08 Freq: [id number]@[id number] Status: Active Target: 01/04/20 Protocol: Activity Type Activity Date Activity User E-Sign Co-Sign Detail Recorded Client Recorded Date Recorded By Document 12/25/19 00:46 [id number] [email or web address] 12/25/19 00:46 [id number] 12/25/19 00:46 PMRU Outcome: Skin Skin Risk Level Mild Risk Current Skin Outcome/Goals Maintain/ Improve Skin Integrity Free from Pressure Injury Progression Toward Outcome/Goals Progressing - Interdisciplinary Staff Present Geological E Logger/Social Work Staff Present: Alee Rabago LMSW Nursing Staff Present: Luana Qiu RN OT Staff Present: My Reo PT Staff Present: James Reese PTA VP CLINICAL Staff Present: Tejinder Snow Medicine Note: Length of Stay: 2 weeks Anticipated Discharge Destination: Home Tentative Discharge Date: 01/08/20 Discharged to: Home
[2019-12-25] MEDS: Ferrous Sulfate TAB* 325 MG PO SCH (16:41)
[2019-12-25] MEDS: CMCS: Pravastatin (NF) 20 MG TAB PO SCH (16:41)
[2019-12-25] MEDS: Magnesium Oxide TAB* 400 MG PO SCH (16:41)
--- NOTE | 2019-12-25 16:46 | PN ---
Progress Note Date of Service: 12/25/19 Note: SHARAD DIAMOND was visited. Therapy notes read and reviewed. The patient was discussed in interdisciplinary team rounds. After therapy this morning at 1200 he told therapy he had chest pressure and did not feel well. I ordered an EKG and a Troponin. Troponin was 0.10 and EKG did not show acute changes. Will repeat troponin at 1800, difficult to interpret with recent CABG Current Medications: Active Medications Generic Name Dose Route Start Last Admin Trade Name Freq PRN Reason Stop Dose Admin Acetaminophen 650 mg 12/21/19 12:22 Tylenol Tab* PO Q6H PRN MILD PAIN or TEMP > 100.4 Amiodarone HCl 200 mg 12/21/19 21:00 12/25/19 09:34 Cordarone Tab* PO 12/27/19 23:59 200 mg BID KARINA Administration Amiodarone HCl 200 mg 12/28/19 09:00 Cordarone Tab* PO DAILY KARINA Aspirin 81 mg 12/22/19 09:00 12/25/19 09:32 Aspirin Ec Tab* PO 81 mg DAILY KARINA Administration Clopidogrel Bisulfate 75 mg 12/22/19 09:00 12/25/19 09:33 Plavix Tab* PO 75 mg DAILY KARINA Administration Docusate Sodium 100 mg 12/21/19 21:00 12/25/19 09:34 Colace Cap* PO 100 mg BID KARINA Administration Duloxetine HCl 60 mg 12/22/19 09:00 12/25/19 09:37 Cymbalta Cap* PO 60 mg DAILY KARINA Administration Ferrous Sulfate 325 mg 12/22/19 17:00 12/25/19 16:41 Ferrous Sulfate Tab* PO 325 mg 1700 KARINA Administration Furosemide 20 mg 12/22/19 09:00 12/25/19 09:33 Lasix Tab* PO 20 mg DAILY KARINA Administration Heparin Sodium (Porcine) 5,000 units 12/21/19 21:00 12/25/19 09:35 Heparin Vial(*) SUBCUT 5,000 units Q12HR KARINA Administration Lisinopril 5 mg 12/23/19 21:00 12/24/19 20:02 Prinivil Tab* PO 5 mg 2100 KARINA Administration Magnesium Oxide 400 mg 12/23/19 17:00 12/25/19 16:41 Magox 400 Tab* PO 400 mg 1700 KARINA Administration Metoprolol Succinate 100 mg 12/22/19 09:00 12/25/19 09:37 Toprol Xl Tab* PO 100 mg DAILY KARINA Administration Pantoprazole Sodium 40 mg 12/22/19 09:00 12/25/19 09:33 Protonix Tab* PO 40 mg DAILY KARINA Administration Potassium Chloride 20 meq 12/22/19 09:00 12/25/19 09:32 Klor Con Er Tab* PO 20 meq DAILY KARINA Administration Pravastatin Sodium 20 mg 12/21/19 17:00 12/25/19 16:41 Pravachol (Nf) PO 20 mg 1700 KARINA Administration Quetiapine Fumarate 25 mg 12/21/19 21:00 12/24/19 20:02 Seroquel Tab* PO 25 mg BEDTIME KARINA Administration Senna 2 tab 12/21/19 12:22 Senokot 8.6 Mg Tab* PO BEDTIME PRN CONSTIPATION Spironolactone 12.5 mg 12/22/19 09:00 12/25/19 09:37 Aldactone Tab* PO 25 mg DAILY KARINA Administration Vital Signs: Vital Signs Temp Pulse Resp BP Pulse Ox 97.7 F 91 17 101/63 96 12/25/19 05:22 12/25/19 12:24 12/25/19 12:24 12/25/19 12:24 12/25/19 12:24 Lab Results: Laboratory Results - last 24 hr 12/25/19 14:47 Troponin I 0.10 H* Exam: GENERAL: Alert and oriented LUNGS: Decreased BS LLE HEART: reg rhythm ABDOMEN: Soft EXTREMITIES: trace edema NEUROLOGIC: alert and oriented. Muscle strength 4/5 Assessment/Plan: 1. NSTEMI, CABG x5: Toprol/ASA/Pravachol/Lisinopril. PT/OT. Sternal Precautions 2. Chest Pain: Will repeat troponin at 1800 and 0000. So far EKG not impressive , and his chest pain symptoms are gone 3. Pleural Effeusion: Lasix/Aldoactone 4. Atrial Fib: Amiodarone/Toprol 5. PVD, S/P Stent: Plavix/ASA 6. GI Upset: Spacing out meds and eliminating unnecessary ones 7. DVT Prophylaxis: Heparin S/Q 8. Advance Directives: Full code. is surrogate decision maker 12/25/19 16:47
[2019-12-25] MEDS: QUEtiapine TAB* 25 MG PO SCH (21:26)
[2019-12-25] MEDS: Lisinopril TAB* 5 MG PO SCH (21:26)
[2019-12-26] MEDS: Amiodarone TAB* 200 MG PO SCH ×2 (10:21→20:23)
[2019-12-26] MEDS: Docusate CAP* 100 MG PO SCH ×2 (10:21→20:23)
[2019-12-26] MEDS: Furosemide TAB* 20 MG PO SCH (10:21)
[2019-12-26] MEDS: DULoxetine DR CAP* 60 MG CAP.DR PO SCH (10:21)
[2019-12-26] MEDS: Aspirin EC TAB* 81 MG TAB.EC PO SCH (10:21)
[2019-12-26] MEDS: Metoprolol Succinate XL TAB* 100 MG PO SCH (10:21)
[2019-12-26] MEDS: Clopidogrel TAB* 75 MG PO SCH (10:21)
[2019-12-26] MEDS: Pantoprazole TAB * 40 MG TAB PO SCH (10:21)
[2019-12-26] MEDS: Heparin VIAL(*) 5000 UNITS/ML VIAL (FIVE THOUSAND) SUBCUT SCH ×2 (10:21→20:23)
[2019-12-26] MEDS: Potassium Chlor TAB* 20 MEQ TAB.ER PO SCH (10:21)
[2019-12-26] MEDS: Spironolactone TAB* 25 MG PO SCH (10:22)
[2019-12-26] MEDS: CMCS: Pravastatin (NF) 20 MG TAB PO SCH (17:00)
[2019-12-26] MEDS: Magnesium Oxide TAB* 400 MG PO SCH (17:00)
[2019-12-26] MEDS: Ferrous Sulfate TAB* 325 MG PO SCH (17:00)
--- NOTE | 2019-12-26 17:50 | PN ---
Progress Note Date of Service: 12/26/19 Note: SHARAD DIAMOND was visited. Therapy notes read and reviewed. Yesterday he had an episode of chest pressure after morning therapy. Troponins were 0.10-0.10-0.10. This seems to be where he is at after CABG. Able to walk 15 feet today with PT. Current Medications: Active Medications Generic Name Dose Route Start Last Admin Trade Name Freq PRN Reason Stop Dose Admin Acetaminophen 650 mg 12/21/19 12:22 Tylenol Tab* PO Q6H PRN MILD PAIN or TEMP > 100.4 Amiodarone HCl 200 mg 12/21/19 21:00 12/26/19 10:21 Cordarone Tab* PO 12/27/19 23:59 200 mg BID KARINA Administration Amiodarone HCl 200 mg 12/28/19 09:00 Cordarone Tab* PO DAILY KARINA Aspirin 81 mg 12/22/19 09:00 12/26/19 10:21 Aspirin Ec Tab* PO 81 mg DAILY KARINA Administration Bisacodyl 10 mg 12/25/19 20:48 12/25/19 21:31 Dulcolax Supp* WI 10 mg DAILY PRN Administration CONSTIPATION Clopidogrel Bisulfate 75 mg 12/22/19 09:00 12/26/19 10:21 Plavix Tab* PO 75 mg DAILY KARINA Administration Docusate Sodium 100 mg 12/21/19 21:00 12/26/19 10:21 Colace Cap* PO 100 mg BID KARINA Administration Duloxetine HCl 60 mg 12/22/19 09:00 12/26/19 10:21 Cymbalta Cap* PO 60 mg DAILY KARINA Administration Ferrous Sulfate 325 mg 12/22/19 17:00 12/26/19 17:00 Ferrous Sulfate Tab* PO 325 mg 1700 KARINA Administration Furosemide 20 mg 12/22/19 09:00 12/26/19 10:21 Lasix Tab* PO 20 mg DAILY KARINA Administration Heparin Sodium (Porcine) 5,000 units 12/21/19 21:00 12/26/19 10:21 Heparin Vial(*) SUBCUT 5,000 units Q12HR KARINA Administration Lisinopril 5 mg 12/23/19 21:00 12/25/19 21:26 Prinivil Tab* PO 5 mg 2100 KARINA Administration Magnesium Oxide 400 mg 12/23/19 17:00 12/26/19 17:00 Magox 400 Tab* PO 400 mg 1700 KARINA Administration Metoprolol Succinate 100 mg 12/22/19 09:00 12/26/19 10:21 Toprol Xl Tab* PO 100 mg DAILY KARINA Administration Pantoprazole Sodium 40 mg 12/22/19 09:00 12/26/19 10:21 Protonix Tab* PO 40 mg DAILY KARINA Administration Potassium Chloride 20 meq 12/22/19 09:00 12/26/19 10:21 Klor Con Er Tab* PO 20 meq DAILY KARINA Administration Pravastatin Sodium 20 mg 12/21/19 17:00 12/26/19 17:00 Pravachol (Nf) PO 20 mg 1700 KARINA Administration Quetiapine Fumarate 25 mg 12/21/19 21:00 12/25/19 21:26 Seroquel Tab* PO 25 mg BEDTIME KARINA Administration Senna 2 tab 12/21/19 12:22 Senokot 8.6 Mg Tab* PO BEDTIME PRN CONSTIPATION Spironolactone 12.5 mg 12/22/19 09:00 12/26/19 10:22 Aldactone Tab* PO 12.5 mg DAILY KARINA Administration Vital Signs: Vital Signs Temp Pulse Resp BP Pulse Ox 98.6 F 95 18 127/70 94 12/26/19 05:12 12/26/19 05:12 12/26/19 08:00 12/26/19 05:12 12/26/19 08:00 Lab Results: Laboratory Results - last 24 hr 12/25/19 12/26/19 18:00 00:30 Troponin I 0.10 H* 0.10 H* Exam: GENERAL: Alert and oriented LUNGS: Decreased BS LLE, chest shows healing sternotomy HEART: reg rhythm ABDOMEN: Soft EXTREMITIES: trace edema NEUROLOGIC: alert and oriented. Muscle strength 4/5 Assessment/Plan: 1. NSTEMI, CABG x5: Toprol/ASA/Pravachol/Lisinopril. PT/OT. Sternal Precautions 2. Chest Pain: troponins 0.10-0.10-0.10 and EKG not impressive; does not seem cardiac. 3. Pleural Effeusion: Lasix/Aldoactone 4. Atrial Fib: Amiodarone/Toprol 5. PVD, S/P Stent: Plavix/ASA 6. GI Upset: Spacing out meds and eliminating unnecessary ones, PPI 7. DVT Prophylaxis: Heparin S/Q 8. Advance Directives: Full code. is surrogate decision maker 12/26/19 17:51
[2019-12-26] MEDS: Lisinopril TAB* 5 MG PO SCH (20:23)
[2019-12-26] MEDS: QUEtiapine TAB* 25 MG PO SCH (20:23)
[2019-12-27] MEDS: Docusate CAP* 100 MG PO SCH ×2 (09:50→20:56)
[2019-12-27] MEDS: Clopidogrel TAB* 75 MG PO SCH (09:50)
[2019-12-27] MEDS: Amiodarone TAB* 200 MG PO SCH ×2 (09:50→20:57)
[2019-12-27] MEDS: Aspirin EC TAB* 81 MG TAB.EC PO SCH (09:50)
[2019-12-27] MEDS: Potassium Chlor TAB* 20 MEQ TAB.ER PO SCH (09:51)
[2019-12-27] MEDS: Heparin VIAL(*) 5000 UNITS/ML VIAL (FIVE THOUSAND) SUBCUT SCH ×2 (09:51→20:59)
[2019-12-27] MEDS: Spironolactone TAB* 25 MG PO SCH (09:51)
[2019-12-27] MEDS: Pantoprazole TAB * 40 MG TAB PO SCH (09:51)
[2019-12-27] MEDS: Furosemide TAB* 20 MG PO SCH (09:51)
[2019-12-27] MEDS: Metoprolol Succinate XL TAB* 100 MG PO SCH (09:51)
[2019-12-27] MEDS: DULoxetine DR CAP* 60 MG CAP.DR PO SCH (09:51)
[2019-12-27] MEDS: Ferrous Sulfate TAB* 325 MG PO SCH (17:45)
[2019-12-27] MEDS: Magnesium Oxide TAB* 400 MG PO SCH (17:45)
[2019-12-27] MEDS: CMCS: Pravastatin (NF) 20 MG TAB PO SCH (17:45)
--- NOTE | 2019-12-27 18:02 | PN ---
Progress Note Date of Service: 12/27/19 Note: SHARAD DIAMOND was visited. Therapy notes read and reviewed. He is tired this evening but otherwise seems to be okay. He has no complaints of chest pain Current Medications: Active Medications Generic Name Dose Route Start Last Admin Trade Name Freq PRN Reason Stop Dose Admin Acetaminophen 650 mg 12/21/19 12:22 Tylenol Tab* PO Q6H PRN MILD PAIN or TEMP > 100.4 Amiodarone HCl 200 mg 12/21/19 21:00 12/27/19 09:50 Cordarone Tab* PO 12/27/19 23:59 200 mg BID KARINA Administration Amiodarone HCl 200 mg 12/28/19 09:00 Cordarone Tab* PO DAILY KARINA Aspirin 81 mg 12/22/19 09:00 12/27/19 09:50 Aspirin Ec Tab* PO 81 mg DAILY KARINA Administration Bisacodyl 10 mg 12/25/19 20:48 12/25/19 21:31 Dulcolax Supp* [place] 10 mg DAILY PRN Administration CONSTIPATION Clopidogrel Bisulfate 75 mg 12/22/19 09:00 12/27/19 09:50 Plavix Tab* PO 75 mg DAILY KARINA Administration Docusate Sodium 100 mg 12/21/19 21:00 12/27/19 09:50 Colace Cap* PO 100 mg BID KARINA Administration Duloxetine HCl 60 mg 12/22/19 09:00 12/27/19 09:51 Cymbalta Cap* PO 60 mg DAILY KARINA Administration Ferrous Sulfate 325 mg 12/22/19 17:00 12/26/19 17:00 Ferrous Sulfate Tab* PO 325 mg 1700 KARINA Administration Furosemide 20 mg 12/22/19 09:00 12/27/19 09:51 Lasix Tab* PO 20 mg DAILY KARINA Administration Heparin Sodium (Porcine) 5,000 units 12/21/19 21:00 12/27/19 09:51 Heparin Vial(*) SUBCUT 5,000 units Q12HR KARINA Administration Lisinopril 5 mg 12/23/19 21:00 12/26/19 20:23 Prinivil Tab* PO 5 mg 2100 KARINA Administration Magnesium Oxide 400 mg 12/23/19 17:00 12/26/19 17:00 Magox 400 Tab* PO 400 mg 1700 KARINA Administration Metoprolol Succinate 100 mg 12/22/19 09:00 12/27/19 09:51 Toprol Xl Tab* PO 100 mg DAILY KARINA Administration Pantoprazole Sodium 40 mg 12/22/19 09:00 12/27/19 09:51 Protonix Tab* PO 40 mg DAILY KARINA Administration Potassium Chloride 20 meq 12/22/19 09:00 12/27/19 09:51 Klor Con Er Tab* PO 20 meq DAILY KARINA Administration Pravastatin Sodium 20 mg 12/21/19 17:00 12/26/19 17:00 Pravachol (Nf) PO 20 mg 1700 KARINA Administration Quetiapine Fumarate 25 mg 12/21/19 21:00 12/26/19 20:23 Seroquel Tab* PO 25 mg BEDTIME KARINA Administration Senna 2 tab 12/21/19 12:22 Senokot 8.6 Mg Tab* PO BEDTIME PRN CONSTIPATION Spironolactone 12.5 mg 12/22/19 09:00 12/27/19 09:51 Aldactone Tab* PO 12.5 mg DAILY KARINA Administration Vital Signs: Vital Signs Temp Pulse Resp BP Pulse Ox 98.7 F 90 20 114/72 95 12/27/19 17:19 12/27/19 17:19 12/27/19 17:19 12/27/19 17:19 12/27/19 17:19 Exam: GENERAL: Alert and oriented LUNGS: Decreased BS LLE, chest shows healing sternotomy HEART: reg rhythm ABDOMEN: Soft EXTREMITIES: trace edema NEUROLOGIC: alert and oriented. Muscle strength 4/5 Assessment/Plan: 1. NSTEMI, CABG x5: Toprol/ASA/Pravachol/Lisinopril. PT/OT. Sternal Precautions 2. Chest Pain: troponins 0.10-0.10-0.10 and EKG not impressive; does not seem cardiac, continue to watch. 3. Pleural Effeusion: Lasix/Aldoactone 4. Atrial Fib: Amiodarone/Toprol 5. PVD, S/P Stent: Plavix/ASA 6. GI Upset: Spacing out meds and eliminating unnecessary ones, PPI 7. DVT Prophylaxis: Heparin S/Q 8. Advance Directives: Full code. is surrogate decision maker 12/27/19 18:02
[2019-12-27] MEDS: Lisinopril TAB* 5 MG PO SCH (20:56)
[2019-12-27] MEDS: QUEtiapine TAB* 25 MG PO SCH (20:56)
[2019-12-28 06:52] LABS: ABS Eosinophils 0.3 10^3/ul (0-0.6); ABS Lymphocytes 1.1 10^3/ul (1.0-4.8); ABS Monocytes 0.7 10^3/ul (0-0.8); ABS Neutrophils 4.2 10^3/ul (1.5-7.7); Eosinophil % 4.1 %; Hematocrit 31 % (42-52); Hemoglobin 10.5 g/dL (14.0-18.0); Lymphocyte % 18.1 %; Mean Corpuscular HGB Conc 34 g/dL (31-36); Mean Corpuscular Hemoglobin 31 pg (27-31); Mean Corpuscular Volume 89 fL (80-94); Mean Platelet Volume 7.1 fL (7.4-10.4); Platelet Count 487 10^3/uL (150-450); Red Blood Count 3.44 10^6 /uL (4.18-5.48); Red Cell Distribution Width 16 % (10-15); White Blood Count 6.3 10^3/uL (3.5-10.8)
[2019-12-28] MEDS: Clopidogrel TAB* 75 MG PO SCH (08:27)
[2019-12-28] MEDS: Aspirin EC TAB* 81 MG TAB.EC PO SCH (08:27)
[2019-12-28] MEDS: Amiodarone TAB* 200 MG PO SCH (08:27)
[2019-12-28] MEDS: Docusate CAP* 100 MG PO SCH ×2 (08:27→20:18)
[2019-12-28] MEDS: Pantoprazole TAB * 40 MG TAB PO SCH (08:28)
[2019-12-28] MEDS: Furosemide TAB* 20 MG PO SCH (08:28)
[2019-12-28] MEDS: DULoxetine DR CAP* 60 MG CAP.DR PO SCH (08:28)
[2019-12-28] MEDS: Heparin VIAL(*) 5000 UNITS/ML VIAL (FIVE THOUSAND) SUBCUT SCH ×2 (08:28→20:18)
[2019-12-28] MEDS: Potassium Chlor TAB* 20 MEQ TAB.ER PO SCH (08:28)
[2019-12-28] MEDS: Spironolactone TAB* 25 MG PO SCH (08:28)
[2019-12-28] MEDS: Metoprolol Succinate XL TAB* 100 MG PO SCH (08:28)
--- NOTE | 2019-12-28 12:12 | PN ---
Progress Note Date of Service: 12/28/19 Note: SHARAD DIAMOND was visited. Nursing and therapy notes read and reviewed. No chest pain, shortness of breath or abdominal pain currently. Has had some intermittent RUQ pain per patient. Feels sleepy all the time. Current Medications: Active Medications Generic Name Dose Route Start Last Admin Trade Name Freq PRN Reason Stop Dose Admin Acetaminophen 650 mg 12/21/19 12:22 Tylenol Tab* PO Q6H PRN MILD PAIN or TEMP > 100.4 Amiodarone HCl 200 mg 12/28/19 09:00 12/28/19 08:27 Cordarone Tab* PO 200 mg DAILY KARINA Administration Aspirin 81 mg 12/22/19 09:00 12/28/19 08:27 Aspirin Ec Tab* PO 81 mg DAILY KARINA Administration Bisacodyl 10 mg 12/25/19 20:48 12/25/19 21:31 Dulcolax Supp* [place] 10 mg DAILY PRN Administration CONSTIPATION Clopidogrel Bisulfate 75 mg 12/22/19 09:00 12/28/19 08:27 Plavix Tab* PO 75 mg DAILY KARINA Administration Docusate Sodium 100 mg 12/21/19 21:00 12/28/19 08:27 Colace Cap* PO 100 mg BID KARINA Administration Duloxetine HCl 60 mg 12/22/19 09:00 12/28/19 08:28 Cymbalta Cap* PO 60 mg DAILY KARINA Administration Ferrous Sulfate 325 mg 12/22/19 17:00 12/27/19 17:45 Ferrous Sulfate Tab* PO 325 mg 1700 KARINA Administration Furosemide 20 mg 12/22/19 09:00 12/28/19 08:28 Lasix Tab* PO 20 mg DAILY KARINA Administration Heparin Sodium (Porcine) 5,000 units 12/21/19 21:00 12/28/19 08:28 Heparin Vial(*) SUBCUT 5,000 units Q12HR KARINA Administration Lisinopril 5 mg 12/23/19 21:00 12/27/19 20:56 Prinivil Tab* PO 5 mg 2100 KARINA Administration Magnesium Oxide 400 mg 12/23/19 17:00 12/27/19 17:45 Magox 400 Tab* PO 400 mg 1700 KARINA Administration Metoprolol Succinate 100 mg 12/22/19 09:00 12/28/19 08:28 Toprol Xl Tab* PO 100 mg DAILY KARINA Administration Pantoprazole Sodium 40 mg 12/22/19 09:00 12/28/19 08:28 Protonix Tab* PO 40 mg DAILY KARINA Administration Potassium Chloride 20 meq 12/22/19 09:00 12/28/19 08:28 Klor Con Er Tab* PO 20 meq DAILY KARINA Administration Pravastatin Sodium 20 mg 12/21/19 17:00 12/27/19 17:45 Pravachol (Nf) PO 20 mg 1700 KARINA Administration Quetiapine Fumarate 25 mg 12/21/19 21:00 12/27/19 20:56 Seroquel Tab* PO 25 mg BEDTIME KARINA Administration Senna 2 tab 12/21/19 12:22 Senokot 8.6 Mg Tab* PO BEDTIME PRN CONSTIPATION Spironolactone 12.5 mg 12/22/19 09:00 12/28/19 08:28 Aldactone Tab* PO 12.5 mg DAILY KARINA Administration Vital Signs: Vital Signs Temp Pulse Resp BP Pulse Ox 98.4 F 92 20 112/77 94 12/28/19 06:35 12/28/19 06:35 12/28/19 06:35 12/28/19 06:35 12/28/19 08:00 Lab Results: Laboratory Results - last 24 hr 12/28/19 06:22 WBC 6.3 RBC 3.44 L Hgb 10.5 L Hct 31 L MCV 89 MCH 31 MCHC 34 RDW 16 H Plt Count 487 H MPV 7.1 L Neut % (Auto) 66.6 Lymph % (Auto) 18.1 [place] % (Auto) 10.5 Eos % (Auto) 4.1 Baso % (Auto) 0.7 Absolute Neuts (auto) 4.2 Absolute Lymphs (auto) 1.1 Absolute Monos (auto) 0.7 Absolute Eos (auto) 0.3 Absolute Basos (auto) 0.0 Absolute Nucleated RBC 0.0 Nucleated RBC % 0.0 Exam: GENERAL: Alert and appropriate. LUNGS: Clear to auscultation bilaterally. HEART: regular rate and rhythm ABDOMEN: + bowel sounds, soft, non-tender, non-distended EXTREMITIES: trace edema bilaterally NEUROLOGIC: BUE/BLE motor 5/5 with normal sensation. CN II-XII intact. SKIN: stenotomy site c/d/i. Assessment/Plan: 1. NSTEMI, CABG x5: Toprol/ASA/Pravachol/Lisinopril. PT/OT. Sternal Precautions 2. Chest Pain 12/25/2019: Brief episode resolved without intervention, troponins 0.10 x3 and EKG not impressive. Follow clinically. 3. Pleural Effeusion: Lasix/Aldoactone 4. Atrial Fib: Amiodarone/Toprol 5. PVD, S/P Stent: Plavix/ASA 6. GI Upset: Spacing out meds and eliminating unnecessary ones, PPI 7. DVT Prophylaxis: Heparin S/Q 8. Advance Directives: Full code. is surrogate decision maker 9. Sedation: Question if needs seroquel. Consider decreased dose. 12/28/19 12:14
[2019-12-28] MEDS: Magnesium Oxide TAB* 400 MG PO SCH (18:08)
[2019-12-28] MEDS: CMCS: Pravastatin (NF) 20 MG TAB PO SCH (18:08)
[2019-12-28] MEDS: Ferrous Sulfate TAB* 325 MG PO SCH (18:09)
[2019-12-28] MEDS: Lisinopril TAB* 5 MG PO SCH (20:16)
[2019-12-28] MEDS: Senna TAB 8.6 mg* TAB PO PRN (20:17)
[2019-12-28] MEDS ORDERED: QUEtiapine TAB* 25 MG PO SCH (21:00)
[2019-12-29] MEDS: Amiodarone TAB* 200 MG PO SCH (09:07)
[2019-12-29] MEDS: DULoxetine DR CAP* 60 MG CAP.DR PO SCH (09:07)
[2019-12-29] MEDS: Furosemide TAB* 20 MG PO SCH (09:08)
[2019-12-29] MEDS: Aspirin EC TAB* 81 MG TAB.EC PO SCH (09:08)
[2019-12-29] MEDS: Pantoprazole TAB * 40 MG TAB PO SCH (09:08)
[2019-12-29] MEDS: Potassium Chlor TAB* 20 MEQ TAB.ER PO SCH (09:08)
[2019-12-29] MEDS: Metoprolol Succinate XL TAB* 100 MG PO SCH (09:08)
[2019-12-29] MEDS: Clopidogrel TAB* 75 MG PO SCH (09:08)
[2019-12-29] MEDS: Spironolactone TAB* 25 MG PO SCH (09:10)
[2019-12-29] MEDS: Docusate CAP* 100 MG PO SCH ×2 (09:11→21:30)
[2019-12-29] MEDS: Heparin VIAL(*) 5000 UNITS/ML VIAL (FIVE THOUSAND) SUBCUT SCH ×2 (09:15→21:31)
--- NOTE | 2019-12-29 11:14 | PN ---
Progress Note Date of Service: 12/29/19 Note: SHARAD DIAMOND was visited. Nursing and therapy notes read and reviewed. He seems more alert this morning and did not have any confusion or issues last night. He is whispering still, which started a few days ago. No throat pain, but his mouth feels dry. No choking with eating and he can clear his throat. His tells me he has been on cymbalta for a long time, so this is unlikely to contribute to sedation. Current Medications: Active Medications Generic Name Dose Route Start Last Admin Trade Name Freq PRN Reason Stop Dose Admin Acetaminophen 650 mg 12/21/19 12:22 Tylenol Tab* PO Q6H PRN MILD PAIN or TEMP > 100.4 Amiodarone HCl 200 mg 12/28/19 09:00 12/29/19 09:07 Cordarone Tab* PO 200 mg DAILY KARINA Administration Aspirin 81 mg 12/22/19 09:00 12/29/19 09:08 Aspirin Ec Tab* PO 81 mg DAILY KARINA Administration Bisacodyl 10 mg 12/25/19 20:48 12/25/19 21:31 Dulcolax Supp* [place] 10 mg DAILY PRN Administration CONSTIPATION Clopidogrel Bisulfate 75 mg 12/22/19 09:00 12/29/19 09:08 Plavix Tab* PO 75 mg DAILY KARINA Administration Docusate Sodium 100 mg 12/21/19 21:00 12/29/19 09:11 Colace Cap* PO Not Given BID KARINA Duloxetine HCl 60 mg 12/22/19 09:00 12/29/19 09:07 Cymbalta Cap* PO 60 mg DAILY KARINA Administration Ferrous Sulfate 325 mg 12/22/19 17:00 12/28/19 18:09 Ferrous Sulfate Tab* PO 325 mg 1700 KARINA Administration Furosemide 20 mg 12/22/19 09:00 12/29/19 09:08 Lasix Tab* PO 20 mg DAILY KARINA Administration Heparin Sodium (Porcine) 5,000 units 12/21/19 21:00 12/29/19 09:15 Heparin Vial(*) SUBCUT 5,000 units Q12HR KARINA Administration Lisinopril 5 mg 12/23/19 21:00 12/28/19 20:16 Prinivil Tab* PO 5 mg 2100 KARINA Administration Magnesium Oxide 400 mg 12/23/19 17:00 12/28/19 18:08 Magox 400 Tab* PO 400 mg 1700 KARINA Administration Metoprolol Succinate 100 mg 12/22/19 09:00 12/29/19 09:08 Toprol Xl Tab* PO 100 mg DAILY KARINA Administration Pantoprazole Sodium 40 mg 12/22/19 09:00 12/29/19 09:08 Protonix Tab* PO 40 mg DAILY KARINA Administration Potassium Chloride 20 meq 12/22/19 09:00 12/29/19 09:08 Klor Con Er Tab* PO 20 meq DAILY KARINA Administration Pravastatin Sodium 20 mg 12/21/19 17:00 12/28/19 18:08 Pravachol (Nf) PO 20 mg 1700 KARINA Administration Quetiapine Fumarate 12.5 mg 12/28/19 21:00 12/28/19 20:14 Seroquel Tab* PO 12.5 mg BEDTIME KARINA Administration Senna 2 tab 12/21/19 12:22 12/28/19 20:17 Senokot 8.6 Mg Tab* PO 2 tab BEDTIME PRN Administration CONSTIPATION Spironolactone 12.5 mg 12/22/19 09:00 12/29/19 09:10 Aldactone Tab* PO 12.5 mg DAILY KARINA Administration Vital Signs: Vital Signs Temp Pulse Resp BP Pulse Ox 97.8 F 88 18 136/65 94 12/29/19 05:51 12/29/19 05:51 12/29/19 05:51 12/29/19 05:51 12/29/19 08:00 Exam: GENERAL: Alert and appropriate. LUNGS: Clear to auscultation bilaterally. HEART: regular rate and rhythm ABDOMEN: + bowel sounds, soft, non-tender, non-distended EXTREMITIES: trace edema bilaterally NEUROLOGIC: BUE/BLE motor 5/5 with normal sensation. CN II-XII intact. SKIN: stenotomy site c/d/i. Assessment/Plan: 1. NSTEMI, CABG x5: Toprol/ASA/Pravachol/Lisinopril. PT/OT. Sternal Precautions 2. Chest Pain 12/25/2019: Brief episode resolved without intervention, troponins 0.10 x3 and EKG not impressive. Follow clinically. 3. Pleural Effeusion: Lasix/Aldoactone 4. Atrial Fib: Amiodarone/Toprol 5. PVD, S/P Stent: Plavix/ASA 6. GI Upset: Spacing out meds and eliminating unnecessary ones, PPI 7. DVT Prophylaxis: Heparin S/Q 8. Advance Directives: Full code. is surrogate decision maker 9. Sedation: Seroquel started at [facility] when confused at night. Has been ok here and did well despite half dose last night. Will d/c seroquel. 10. Whispering: If persists, will ask speech to see him. 12/29/19 11:12
[2019-12-29] MEDS: CMCS: Pravastatin (NF) 20 MG TAB PO SCH (18:03)
[2019-12-29] MEDS: Magnesium Oxide TAB* 400 MG PO SCH (18:03)
[2019-12-29] MEDS: Ferrous Sulfate TAB* 325 MG PO SCH (18:03)
[2019-12-29] MEDS: Lisinopril TAB* 5 MG PO SCH (21:30)
[2019-12-30] MEDS: Potassium Chlor TAB* 20 MEQ TAB.ER PO SCH (08:11)
[2019-12-30] MEDS: Clopidogrel TAB* 75 MG PO SCH (08:12)
[2019-12-30] MEDS: Spironolactone TAB* 25 MG PO SCH (08:12)
[2019-12-30] MEDS: Amiodarone TAB* 200 MG PO SCH (08:12)
[2019-12-30] MEDS: DULoxetine DR CAP* 60 MG CAP.DR PO SCH (08:12)
[2019-12-30] MEDS: Furosemide TAB* 20 MG PO SCH (08:12)
[2019-12-30] MEDS: Docusate CAP* 100 MG PO SCH ×2 (08:12→20:25)
[2019-12-30] MEDS: Aspirin EC TAB* 81 MG TAB.EC PO SCH (08:12)
[2019-12-30] MEDS: Pantoprazole TAB * 40 MG TAB PO SCH (08:12)
[2019-12-30] MEDS: Metoprolol Succinate XL TAB* 100 MG PO SCH (08:12)
[2019-12-30] MEDS: Heparin VIAL(*) 5000 UNITS/ML VIAL (FIVE THOUSAND) SUBCUT SCH ×2 (08:15→20:23)
--- NOTE | 2019-12-30 10:05 | PN ---
Progress Note Date of Service: 12/30/19 Note: SHARAD DIAMOND was visited. Nursing notes read and reviewed. He did ok last night without seroquel and this morning his voice is stronger. He reports since surgery difficulty with swallowing solid foods. Last night meatloaf was served for dinner but after 3 bites he did not feel more would go down. He can get liquids down and soups with small vegetables without problem but meatloaf was too solid. Taking in liquids with meatloaf did not help and it was uncomfortable. He burps with liquids and thinks that helps, but burping does not help with solids. He was told in the past by his PCP he had a hiatal hernia and he had some heartburn issues. The chest pain that led to his surgery and he had in the past has resolved. He does have discomfort over the sternotomy site and some into his abdomen. No dyspnea or pleurisy. He has been urinating and having bowel movements. He feels he wants to eat more but cannot. Current Medications: Active Medications Generic Name Dose Route Start Last Admin Trade Name Frefabiano PRN Reason Stop Dose Admin Acetaminophen 650 mg 12/21/19 12:22 Tylenol Tab* PO Q6H PRN MILD PAIN or TEMP > 100.4 Amiodarone HCl 200 mg 12/28/19 09:00 12/30/19 08:12 Cordarone Tab* PO 200 mg DAILY KARINA Administration Aspirin 81 mg 12/22/19 09:00 12/30/19 08:12 Aspirin Ec Tab* PO 81 mg DAILY KARINA Administration Bisacodyl 10 mg 12/25/19 20:48 12/25/19 21:31 Dulcolax Supp* [place] 10 mg DAILY PRN Administration CONSTIPATION Clopidogrel Bisulfate 75 mg 12/22/19 09:00 12/30/19 08:12 Plavix Tab* PO 75 mg DAILY KARINA Administration Docusate Sodium 100 mg 12/21/19 21:00 12/30/19 08:12 Colace Cap* PO 100 mg BID KARINA Administration Duloxetine HCl 60 mg 12/22/19 09:00 12/30/19 08:12 Cymbalta Cap* PO 60 mg DAILY KARINA Administration Ferrous Sulfate 325 mg 12/22/19 17:00 12/29/19 18:03 Ferrous Sulfate Tab* PO 325 mg 1700 KARINA Administration Furosemide 20 mg 12/22/19 09:00 12/30/19 08:12 Lasix Tab* PO 20 mg DAILY KARINA Administration Heparin Sodium (Porcine) 5,000 units 12/21/19 21:00 12/30/19 08:15 Heparin Vial(*) SUBCUT 5,000 units Q12HR KARINA Administration Lisinopril 5 mg 12/23/19 21:00 12/29/19 21:30 Prinivil Tab* PO 5 mg 2100 KARINA Administration Magnesium Oxide 400 mg 12/23/19 17:00 12/29/19 18:03 Magox 400 Tab* PO 400 mg 1700 KARINA Administration Metoprolol Succinate 100 mg 12/22/19 09:00 12/30/19 08:12 Toprol Xl Tab* PO 100 mg DAILY KARINA Administration Pantoprazole Sodium 40 mg 12/22/19 09:00 12/30/19 08:12 Protonix Tab* PO 40 mg DAILY KARINA Administration Potassium Chloride 20 meq 12/22/19 09:00 12/30/19 08:11 Klor Con Er Tab* PO 20 meq DAILY KARINA Administration Pravastatin Sodium 20 mg 12/21/19 17:00 12/29/19 18:03 Pravachol (Nf) PO 20 mg 1700 KARINA Administration Senna 2 tab 12/21/19 12:22 12/28/19 20:17 Senokot 8.6 Mg Tab* PO 2 tab BEDTIME PRN Administration CONSTIPATION Spironolactone 12.5 mg 12/22/19 09:00 12/30/19 08:12 Aldactone Tab* PO 12.5 mg DAILY KRAINA Administration Vital Signs: Vital Signs Temp Pulse Resp BP Pulse Ox 97.4 F 88 18 143/53 94 12/30/19 05:01 12/30/19 05:01 12/30/19 05:01 12/30/19 05:01 12/30/19 08:00 Exam: GENERAL: Alert and appropriate. LUNGS: Decreased breath sounds left lung field sitting up in chair. Right side clear to auscultation HEART: regular rate and rhythm. Pain reproduced with palpation over sternotomy site. ABDOMEN: + bowel sounds, soft, non-tender, non-distended EXTREMITIES: trace edema bilaterally NEUROLOGIC: BUE/BLE motor 5/5 with normal sensation. CN II-XII intact. SKIN: stenotomy site c/d/i. Assessment/Plan: 1. NSTEMI, CABG x5: Toprol/ASA/Pravachol/Lisinopril. PT/OT. Sternal Precautions 2. Chest Pain 12/25/2019: Brief episode resolved without intervention, troponins 0.10 x3 and EKG not impressive. Will get another troponin today and chest x-ray. 3. Pleural Effeusion: Lasix/Aldoactone. Check chest x-ray for progression. This was tapped in [place]. I am not certain that reaccumulation would affect his swallowing. 4. Atrial Fib: Amiodarone/Toprol 5. PVD, S/P Stent: Plavix/ASA 6. GI/Solids getting stuck: On PPI. I will discuss with coat repair inspector adjusting food textures, order speech for swallow evaluation tomorrow and consult GI. 7. DVT Prophylaxis: Heparin S/Q 8. Advance Directives: Full code. is surrogate decision maker 9. Sedation: Discontinued seroquel 12/28 with improvement 10. Whispering: Voice improved today off seroquel. Will also ask speech to f/u on this. 12/30/19 10:05
[2019-12-30 10:52] LABS: Troponin I 0.06 ng/mL (<0.03)
[2019-12-30] MEDS ORDERED: Ondansetron ODT TAB* 4 MG SL PRN (11:13)
[2019-12-30] MEDS: CMCS: Pravastatin (NF) 20 MG TAB PO SCH (17:19)
[2019-12-30] MEDS: Magnesium Oxide TAB* 400 MG PO SCH (17:19)
[2019-12-30] MEDS: Ferrous Sulfate TAB* 325 MG PO SCH (17:19)
[2019-12-30] MEDS: Lisinopril TAB* 5 MG PO SCH (20:21)
[2019-12-30] MEDS: Senna TAB 8.6 mg* TAB PO PRN (20:22)
[2019-12-31 07:16] LABS: ABS Eosinophils 0.3 10^3/ul (0-0.6); ABS Lymphocytes 1.3 10^3/ul (1.0-4.8); ABS Monocytes 0.6 10^3/ul (0-0.8); ABS Neutrophils 4.4 10^3/ul (1.5-7.7); Eosinophil % 4.5 %; Hematocrit 32 % (42-52); Hemoglobin 10.7 g/dL (14.0-18.0); Lymphocyte % 19.5 %; Mean Corpuscular HGB Conc 34 g/dL (31-36); Mean Corpuscular Hemoglobin 30 pg (27-31); Mean Corpuscular Volume 90 fL (80-94); Mean Platelet Volume 7.1 fL (7.4-10.4); Platelet Count 440 10^3/uL (150-450); Red Blood Count 3.52 10^6 /uL (4.18-5.48); Red Cell Distribution Width 16 % (10-15); White Blood Count 6.6 10^3/uL (3.5-10.8)
[2019-12-31 07:28] LABS: Albumin 2.9 g/dL (3.2-5.2); Albumin/Globulin Ratio 0.9 (1-3); EGFR African American 43.9 (>60); EGFR Non-African American 36.3 (>60); Globulin 3.3 g/dL (2-4); Magnesium 2.2 mg/dL (1.9-2.7); Total Bilirubin 0.5 mg/dL (0.2-1.0); Total Protein 6.2 g/dL (6.4-8.9)
[2019-12-31] MEDS: Metoprolol Succinate XL TAB* 100 MG PO SCH (09:40)
[2019-12-31] MEDS: Potassium Chlor TAB* 20 MEQ TAB.ER PO SCH (09:40)
[2019-12-31] MEDS: Aspirin EC TAB* 81 MG TAB.EC PO SCH (09:40)
[2019-12-31] MEDS: DULoxetine DR CAP* 60 MG CAP.DR PO SCH (09:40)
[2019-12-31] MEDS: Docusate CAP* 100 MG PO SCH (09:40)
[2019-12-31] MEDS: Clopidogrel TAB* 75 MG PO SCH (09:40)
[2019-12-31] MEDS: Furosemide TAB* 20 MG PO SCH (09:40)
[2019-12-31] MEDS: Amiodarone TAB* 200 MG PO SCH (09:40)
[2019-12-31] MEDS: Pantoprazole TAB * 40 MG TAB PO SCH (09:41)
[2019-12-31] MEDS: Spironolactone TAB* 25 MG PO SCH (09:41)
[2019-12-31] MEDS: Heparin VIAL(*) 5000 UNITS/ML VIAL (FIVE THOUSAND) SUBCUT SCH ×2 (09:41→20:03)
--- NOTE | 2019-12-31 10:40 | PN ---
Progress Note Date of Service: 12/31/19 Note: SHARAD DIAMOND was visited. Nursing notes read and reviewed. No new chest pain, shortness of breath or abdominal pain. Going for barium swallow today. Had some nausea and brief small vomit yesterday morning that resolved. Synthetic Chemist saw him yesterday to help with food/nutrition that he can get down easier. Current Medications: Active Medications Generic Name Dose Route Start Last Admin Trade Name Freq PRN Reason Stop Dose Admin Acetaminophen 650 mg 12/21/19 12:22 Tylenol Tab* PO Q6H PRN MILD PAIN or TEMP > 100.4 Amiodarone HCl 200 mg 12/28/19 09:00 12/31/19 09:40 Cordarone Tab* PO 200 mg DAILY KARINA Administration Aspirin 81 mg 12/22/19 09:00 12/31/19 09:40 Aspirin Ec Tab* PO 81 mg DAILY KARINA Administration Bisacodyl 10 mg 12/25/19 20:48 12/25/19 21:31 Dulcolax Supp* [place] 10 mg DAILY PRN Administration CONSTIPATION Clopidogrel Bisulfate 75 mg 12/22/19 09:00 12/31/19 09:40 Plavix Tab* PO 75 mg DAILY KARINA Administration Docusate Sodium 100 mg 12/21/19 21:00 12/31/19 09:40 Colace Cap* PO 100 mg BID KARINA Administration Duloxetine HCl 60 mg 12/22/19 09:00 12/31/19 09:40 Cymbalta Cap* PO 60 mg DAILY KARINA Administration Ferrous Sulfate 325 mg 12/22/19 17:00 12/30/19 17:19 Ferrous Sulfate Tab* PO 325 mg 1700 KARINA Administration Furosemide 20 mg 12/22/19 09:00 12/31/19 09:40 Lasix Tab* PO 20 mg DAILY KARINA Administration Heparin Sodium (Porcine) 5,000 units 12/21/19 21:00 12/31/19 09:41 Heparin Vial(*) SUBCUT 5,000 units Q12HR KARINA Administration Lisinopril 5 mg 12/23/19 21:00 12/30/19 20:21 Prinivil Tab* PO 5 mg 2100 KARINA Administration Magnesium Oxide 400 mg 12/23/19 17:00 12/30/19 17:19 Magox 400 Tab* PO 400 mg 1700 KARINA Administration Metoprolol Succinate 100 mg 12/22/19 09:00 12/31/19 09:40 Toprol Xl Tab* PO 100 mg DAILY KARINA Administration Ondansetron HCl 4 mg 12/30/19 11:13 12/30/19 11:24 Zofran Odt Tab* SL 4 mg Q6H PRN Administration NAUSEA/VOMITING Pantoprazole Sodium 40 mg 12/22/19 09:00 12/31/19 09:41 Protonix Tab* PO 40 mg DAILY KARINA Administration Potassium Chloride 20 meq 12/22/19 09:00 12/31/19 09:40 Klor Con Er Tab* PO 20 meq DAILY KARINA Administration Pravastatin Sodium 20 mg 12/21/19 17:00 12/30/19 17:19 Pravachol (Nf) PO 20 mg 1700 KARINA Administration Senna 2 tab 12/21/19 12:22 12/30/19 20:22 Senokot 8.6 Mg Tab* PO 2 tab BEDTIME PRN Administration CONSTIPATION Spironolactone 12.5 mg 12/22/19 09:00 12/31/19 09:41 Aldactone Tab* PO 12.5 mg DAILY KARINA Administration Vital Signs: Vital Signs Temp Pulse Resp BP Pulse Ox 98.1 F 66 16 132/55 97 12/31/19 05:36 12/31/19 05:36 12/31/19 07:45 12/31/19 05:36 12/31/19 07:45 Lab Results: Laboratory Results - last 24 hr 12/30/19 12/31/19 12/31/19 10:09 06:27 06:27 WBC 6.6 RBC 3.52 L Hgb 10.7 L Hct 32 L MCV 90 MCH 30 MCHC 34 RDW 16 H Plt Count 440 MPV 7.1 L Neut % (Auto) 66.5 Lymph % (Auto) 19.5 [place] % (Auto) 8.9 Eos % (Auto) 4.5 Baso % (Auto) 0.6 Absolute Neuts (auto) 4.4 Absolute Lymphs (auto) 1.3 Absolute Monos (auto) 0.6 Absolute Eos (auto) 0.3 Absolute Basos (auto) 0.0 Absolute Nucleated RBC 0.0 Nucleated RBC % 0.0 Sodium 141 Potassium 4.0 Chloride 102 Carbon Dioxide 30 Anion Gap 9 BUN 29 H Creatinine 1.81 H Est GFR ( Amer) 43.9 Est GFR (Non-Af Amer) 36.3 BUN/Creatinine Ratio 16.0 Glucose 92 Calcium 9.0 Magnesium 2.2 Total Bilirubin 0.50 AST 14 ALT 10 Alkaline Phosphatase 72 Troponin I 0.06 H* Total Protein 6.2 L Albumin 2.9 L Globulin 3.3 Albumin/Globulin Ratio 0.9 L Exam: GENERAL: Alert and appropriate. LUNGS: Decreased breath sounds left lung field sitting up in chair. Right side clear to auscultation HEART: regular rate and rhythm. Pain reproduced with palpation over sternotomy site. ABDOMEN: + bowel sounds, soft, non-tender, non-distended EXTREMITIES: trace edema bilaterally NEUROLOGIC: BUE/BLE motor 5/5 with normal sensation. CN II-XII intact. SKIN: stenotomy site c/d/i. Assessment/Plan: 1. NSTEMI, CABG x5: Toprol/ASA/Pravachol/Lisinopril. PT/OT. Sternal Precautions 2. Chest Pain 12/25/2019: Brief episode resolved without intervention, troponins 0.10 x3 and EKG not impressive. Troponin 0.06 on 12/29, better. 3. Pleural Effeusion: Lasix/Aldoactone. Check chest x-ray 12/29 looked stable. This was tapped in [place]. 4. Atrial Fib: Amiodarone/Toprol 5. PVD, S/P Stent: Plavix/ASA 6. GI/Solids getting stuck: On PPI. Barium swallow today. GI to consult and speech also to see. welding equipment repairer supervisor helping with food consistencies. 7. DVT Prophylaxis: Heparin S/Q 8. Advance Directives: Full code. is surrogate decision maker 9. Sedation: Discontinued seroquel 12/28 with improvement 10. Whispering: Voice improved off seroquel, but still quiet. Speech therapy. 11. Renal insufficiency: Has been NPO except for sips since after dinner for barium swallow today. Encourage po fluids once back and recheck P3 on 01/01. 12/31/19 10:37
--- NOTE | 2019-12-31 13:29 | CONS ---
CONSULTATION REPORT: DATE OF CONSULT: 12/31/19 REQUESTING PHYSICIAN: Dr. Lewis. INDICATION: Dysphagia. NARRATIVE: Mr. Estrada is a pleasant 79-year-old gentleman who underwent recent CABG approximately 3-1 /2 weeks ago, who has developed worsening dysphagia to solids. The patient states that prior to his C ABG, he did have some difficulty swallowing solids. He states that it would almost always go down; h owever, he felt like he had to always burp afterwards. If he did not burp, he would feel sensation t hat there was something in the esophagus. Now he states that whenever he eats solids, it feels like it is going down very slow. He has not had to regurgitate things. He does have a long history of aci d reflux and heartburn type symptoms. No family history of esophageal cancer. His dysphagia is to s olids alone, not to liquids. He is on Plavix. PAST MEDICAL HISTORY: Significant for coronary artery disease, peripheral vascular disease, hyperten ernestina, hyperlipidemia, history of PE, sleep apnea, and bladder cancer. MEDICATIONS: Upon admission include: 1. Aspirin. 2. Amiodarone. 3. Plavix. 4. Cymbalta. 5. Lasix. 6. Aldactone. 7. Lisinopril. 8. Protonix. 9. Pravachol. 10. Seroquel. 11. Senokot. ALLERGIES: None. FAMILY HISTORY: Lung cancer, brain cancer. SOCIAL HISTORY: He does not smoke nor drink. REVIEW OF SYSTEMS: Twelve systems were reviewed, other than that mentioned in the HPI were unremarka ble. PHYSICAL EXAMINATION: Temperature is 98.1, blood pressure is 132/55, pulse is 66, respiratory rate o f 18, O2 sat is 97%. General: Elderly-appearing male, in no apparent distress. Alert, oriented, pl easant, and fluent. HEENT: Dentition is very poor. Neck is supple. Trachea is midline. Heart: I rregular rate and rhythm. Lungs: Clear to auscultation. Abdomen: Positive bowel sounds, soft. He does have well-healing scars. Skin is warm and dry. DIAGNOSTIC STUDIES/LAB DATA: Of note, white count is 6.6, hemoglobin is 10.7, BUN of 29, creatinine 1.81. ASSESSMENT AND PLAN: This is a pleasant 79-year-old gentleman with a newer onset of solid food dysph agia, likely occurring prior to his coronary artery bypass grafting, but seems to have worsened since the coronary artery bypass grafting. He did have a barium esophagram this morning. I am awaiting t he results of it. I do not see it in the computer yet. He also had a swallowing evaluation who is r ecommending soft solids. We will follow along and await the results of the barium esophagram to eval uate for any strictures, rings, or masses. One other possibility would be a motility issue. Of note , the patient is on blood thinners. We will follow along. [id number]/[facility] #: [id number]
[2019-12-31] MEDS ORDERED: Ferrous Sulfate LIQ* 300 MG/5 ML UDC PO SCH ×2 (17:00→21:00)
[2019-12-31] MEDS ORDERED: Acetaminophen ADULT LIQ* 650 MG/20.3 ML UDC PO PRN (17:00)
[2019-12-31] MEDS: CMCS: Pravastatin (NF) 20 MG TAB PO SCH (17:20)
[2019-12-31] MEDS: Magnesium Oxide TAB* 400 MG PO SCH (17:20)
[2019-12-31] MEDS: Docusate LIQ* 100 MG/10 ML UDC PO SCH (20:02)
[2019-12-31] MEDS: Lisinopril TAB* 5 MG PO SCH (20:02)
[2020-01-01] MEDS: Amiodarone TAB* 200 MG PO SCH ×2 (09:41→12:01)
[2020-01-01] MEDS: Docusate LIQ* 100 MG/10 ML UDC PO SCH (09:41)
[2020-01-01] MEDS: Aspirin 81 mg CHEW TAB* 81 MG TAB.CHEW PO SCH ×2 (09:41→12:00)
[2020-01-01] MEDS: Clopidogrel TAB* 75 MG PO SCH ×2 (09:41→12:00)
[2020-01-01] MEDS: DULoxetine DR CAP* 60 MG CAP.DR PO SCH ×2 (09:42→12:01)
[2020-01-01] MEDS: Furosemide TAB* 20 MG PO SCH ×2 (09:42→12:01)
[2020-01-01] MEDS: Heparin VIAL(*) 5000 UNITS/ML VIAL (FIVE THOUSAND) SUBCUT SCH ×2 (09:42→20:57)
[2020-01-01] MEDS: Lansoprazole SUSP* ORALSYR 3 MG/ML PO SCH (09:49)
[2020-01-01] MEDS: Metoprolol Succinate XL TAB* 100 MG PO SCH ×2 (09:49→12:00)
[2020-01-01] MEDS: Spironolactone TAB* 25 MG PO SCH ×2 (09:53→11:59)
[2020-01-01] MEDS: Potassium Chloride* LIQUID 20 MEQ/15 ML UDC PO SCH ×3 (09:54→12:26)
--- NOTE | 2020-01-01 12:39 | PMRUTEAM ---
PMRU: Team Meeting Current Status: Physical Therapy: Current Status Current Rolling Status Substantial/Maximal Current Supine <-> Sit Status Substantial/Maximal Current Sit <-> Stand Status Partial/Moderate Current Bed <-> Chair Status Partial/Moderate Transfer/Bed Mobility None Recommended Devices Transfer Mobility Comment Pt. is able to stand cg to min A x 1 & transfer with min A x 1 no device . Current Picking Up Object Not attempted Status Current Car Transfer Status Dependent Current Ambulation Assistance Supervision/Touching Status Ambulation Assistive Device None Current Ambulation Distance 50' x 2 Ambulation Comment Pt. has poor dynamic standing balance tends to lean backwards can't self c. Current Wheelchair Propulsion Not Applicable Ability Status Current Stair Climbing Status Not attempted Stair Climbing Assistive Left Railing,Right Railing Devices Number of Stairs Climbed 1 Current Curb Assistance Status Not attempted Curb Assistive Devices None Objective Comments Pt. is able to maintain sternal precautions. Occupational Therapy: Current Status Current Upper Body Dressing Setup or Clean-up Assist Status Current Lower Body Dressing Partial/Moderate Status Current Footwear Status Dependent Current Bathing Status Partial/Moderate Current Grooming Status Partial/Moderate Current Toileting Status Partial/Moderate Current Toilet Transfer Status Partial/Moderate Current Eating Status Independent Nursing: Current Status Skin Deviations [Left Flank] Bruise Skin Deviations [Bilateral Incision Medial Thigh] Skin Deviations [Bilateral Other Buttocks] Skin Deviations [Right Groin] Previous Access Point Skin Deviations [Left Lower Bruise Abdomen] Skin Deviations [Upper Abdomen Previous Access Point ] Skin Deviations [Left Lower Incision Breast] Skin Deviations [Right Upper Previous Access Point Arm] Skin Deviations [Right Lower Other Back] Skin Deviations [Midline Chest Incision ] Skin Deviation Description [ little pink, well approximated, no drainage noted , Bilateral Medial Thigh] Skin Deviation Description [ no breakdown noted Bilateral Buttocks] Skin Deviation Description [ no breakdown noted Right Groin] Skin Deviation Description [ scab over Left Lower Abdomen] Skin Deviation Description [ two dark scabs Upper Abdomen] Skin Deviation Description [ status post thoracentesis Left Lower Breast] Skin Deviation Description [ s/p picc Right Upper Arm] Skin Deviation Description [ pt had thoracentisis done, drain access Right Lower Back] Skin Deviation Description [ steri strips in place Midline Chest] Bladder Current Status dependent/uses urinal Bowel Current Status dependent Nutrition Current Status 50% Medication Current Status dependent Rec Therapy: Current Status Summary of Assessment and Recreation therapy assessment complete and pt is Clinical Impression aware of services. Pt is open to continued leisure visits, but declined pet therapy at this time. Pt was provided with word searches and has been encouraged to complete them. Treatment Goals Pt will engaged in leisure activities while on the unit, as tolerated Treatment Plan Provide recreation therapy services and encourage involvement Social Work: Current Status Discharge Plan return home with home care svs and family support Potential for Family Training pt's is involved and supportive Anticipated Discharge Home Destination Discharge With home care svs and family support Nutrition: Current Status Monitoring Met w/pt and SENIOR PORTFOLIO ANALYST to discuss food preferences given results of barium swallow. Per SENIOR PORTFOLIO ANALYST, barium tab took 14 mins to pass due to hiatal hernia. Per pt, when he take pills whole or eats even ground food like meatloaf, he quickly loses his appetite, likely r/t food taking a long time to pass into stomach. It is unclear at this time if hernia can be treated. Pt also with limited dentition so is unable to chew food thoroughly enough to achieve the consistency that would go down more easily. During discussion pt is very resistant to puree textures. He also has very limited list of foods that he will accept. C/o salt restriction. Per discussion, pt typically adds salt to most foods. Pt is agreeable to trial puree foods, though reluctantly. Pt agreeable to scrambled eggs and cottage cheese at B; pureed cream soups, mashed potatoes and chocolate milkshakes at L and D; will send extra black pepper and Mrs Dash on all trays to help with palatability. Pt continues to decline Ensure drink (both Enlive and Clear), as well as Ensure pudding. Discussed importance of getting adequate nutrition especially calories and protein for maintaining and building strength while in rehab. Will cont to follow progress. Speech: Current Status Assessment Patient is progressing as expected. Goals: Physical Therapy: Goals Goals to Be Accomplished in ( 10-14 Days) Goal: Rolling Assistance Independent Goal Supine <-> Sit Status Independent Goal Sit <-> Stand Status Independent Goal Bed <-> Chair Status Independent Transfer/Bed Mobility None Recommended Devices Goal: Picking Up Object Independent Goal: Car Transfer Status Setup or Clean-up Assist Goal: Ambulation Assistance Independent Ambulation Assistive Devices Rolling Walker Ambulation Distance (ft) 150' Goal: Wheelchair Propulsion Not Applicable Ability Goal: Stairs Assistance Supervision/Touching Stairs Recommended Devices Two Rails Number of Stairs 5 Goal: Curb Assistance Supervision/Touching Goal: Home Exercise Program Independent Assistance Occupational Therapy: Goals Goals to be Completed in (Days 10-14 days ) Goal Upper Body Dressing Independent Routine Goal Lower Body Dressing Supervision/Touching Routine Goal Footwear Status Partial/Moderate Goal Bathing Routine (OT) Supervision/Touching Goal Grooming Routine Setup or Clean-up Assist Goal Toilet Hygiene and Independent Clothing Management Routine Goal Toilet Transfer Routine Independent Goal Functional Transfers for Independent ADL Goal Feeding Routine Independent Goal Light Housekeeping Tasks Not Applicable Light Housekeeping Tasks pts completes all household tasks Assistive Devices Goals Comment Pts completes all housekeeping tasks at home at baseline Nutrition: Goals Intervention Goals 1. improved and adequate intake to support stable wt, hydration, and repletion of lean body mass 2. achieve and maintain serum electrolytes WNL 3. no clinical s/sx dehydration; ultimately, liquid intake > 1800ml/day 4. regulation of bowel pattern; no c/o constipation (or diarrhea) Speech: Goals Goal 1 Comments Long-Term Goal: Patient will tolerate least restrictive diet consistencies w/ adequate hydration and nutritional intake, and no clinical s/s of aspiration. Short Term Goals: 1) STG: Pt will tolerate pureed texture and thin liquids w/ timely oral transit and no clinical s/s aspiration. 2) STG: Pt will tolerate soft mechanical/ground consistency w/ adequate preparation, timely oral transit and no s/s esophageal dysmotility. Social Work: Goals Discharge Plan return home with home care svs and family support Potential for Family Training pt's is involved and supportive Anticipated Discharge Home Destination Discharge With home care [facility] and family support Nursing: Goals Bladder Goal independent Bowel Goal independent Nutrition Goal 100% of meals eaten Medication Goal helps with medications Care Plan: Care Plan ADL's - Improve/Maintain Start: 12/21/19 15:47 Freq: DAILY@0700,1900 Status: Active Target: 12/22/19 Protocol: Activity Type Activity Date Activity User E-Sign Co-Sign Detail Recorded Client Recorded Date Recorded By Document 01/01/20 12:01 [id number] 01/01/20 12:01 [id number] 01/01/20 12:01 PMRU Outcome: ADL's/ADL Transfers Orders/Interventions Occupational Therapy Evaluation & Treatment Device Yes Address Deficits Secondary To: CABG x5 Patient to receive OT 5x/wk for 60-120 Therex min/day Self Care Management Group Therapy UE/LE ADL's with Assist Yes: Independent ADL Transfers with Assist Yes: Independent Toileting: Transfers,Clothing Management Yes: ,Hygeine w/Assist Independent Light Kitchen/Laundry w/Assist Yes: totalA Progression Toward Outcome/Goals Not Progressing Lack of Progression Comment Pt unable to participate in OT tx session this date 2* N/ V. He attempts to participate but after approx 15 minutes, he is unable to tolerate any further tx. Cardiovascular- Improve/Maintain Start: 12/21/19 18:08 Freq: DAILY@0700,1900 Status: Active Target: 01/04/20 Protocol: Activity Type Activity Date Activity User E-Sign Co-Sign Detail Recorded Client Recorded Date Recorded By Document 01/01/20 07:00 [id number] [id number] 01/01/20 08:00 [id number] 01/01/20 07:00 PMRU Outcome: Cardiovascular Vital Signs q Shift for 48hrs Then BID Yes Daily Weight Ordered No Current Cardiovascular Outcome/Goal Maintain/ Achieve Baseline HR, BP , Perfusion Maintain/ Achieve Hemodynamic Stability Free of Abnormal Cardiac Symptoms Progression Toward Outcome/Goal Progressing Communication-Improve/Maintain Start: 12/31/19 19:45 Freq: DAILY@0700,1900 Status: Active Target: 01/04/20 Protocol: Activity Type Activity Date Activity User E-Sign Co-Sign Detail Recorded Client Recorded Date Recorded By Document 01/01/20 07:00 [id number] 01/01/20 08:00 [id number] 01/01/20 07:00 PMRU Outcome: Communication/Cognitive Status Current Communication Outcome/Goals Use Comm Tools/ Devices Makes Needs Known Effectively Progression Toward Outcomes/Goals Goal Initiation DVT Prophylaxis- Improve/Maintain Start: 12/21/19 18:08 Freq: DAILY@0700,1900 Status: Active Target: 01/04/20 Protocol: Activity Type Activity Date Activity User E-Sign Co-Sign Detail Recorded Client Recorded Date Recorded By Document 01/01/20 07:00 [id number] [id number] 01/01/20 08:00 [id number] 01/01/20 07:00 PMRU Outcome: DVT Prophylaxis Current DVT Outcome/Goals Remains Free of DVT Complies with DVT Prophylaxis /Treatment Demonstrates Knowledge of DVT Prevention/ Treatment Progression Toward Outcome/Goals Progressing Discharge Planning - Improve/Maintain Start: 12/21/19 18:08 Freq: DAILY@0700,1900 Status: Active Target: 01/04/20 Protocol: Activity Type Activity Date Activity User E-Sign Co-Sign Detail Recorded Client Recorded Date Recorded By Document 01/01/20 07:00 [id number] 01/01/20 08:00 [id number] 01/01/20 07:00 PMRU Outcome: Discharge Planning Update Patient Family Yes: update to jorje Koroma Current Discharge Planning Outcome/Goals Demonstrates Understanding of Discharge Plan Progression Toward Outcome/Goals Progressing Education-Improve/Maintain Start: 12/21/19 18:08 Freq: DAILY@699,[id number] Status: Active Target: 01/04/20 Protocol: Activity Type Activity Date Activity User E-Sign Co-Sign Detail Recorded Client Recorded Date Recorded By Document 01/01/20 07:00 [id number] 01/01/20 08:00 [id number] 01/01/20 07:00 PMRU Outcome: Education Current Education Outcome/Goals Demonstrate/ Verbalize Understanding of Written Discharge Instructions Demonstrates Skills Encourage Questions Progression Toward Outcome/Goals Progressing Medication Administration Start: 12/27/19 20:18 Freq: DAILY@07,1900 Status: Active Target: 01/04/20 Protocol: Activity Type Activity Date Activity User E-Sign Co-Sign Detail Recorded Client Recorded Date Recorded By Document 01/01/20 07:00 [id number] 01/01/20 08:00 [id number] 01/01/20 07:00 PMRU Outcome: Medication Administration Assess Patient Knowledge/Teach Med No Education for all Meds Current Optical Worker Outcome/Goals Patient Independent with Medication Administration at Home Demonstrates Understanding Progression Towards Outcome/Goals Progressing Is Patient Going Home on Lovenox? No Mobility- Improve/Maintain Start: 12/21/19 17:09 Freq: DAILY@699,0 Status: Active Target: 12/22/19 Protocol: Activity Type Activity Date Activity User E-Sign Co-Sign Detail Recorded Client Recorded Date Recorded By Document 12/21/19 17:09 [id number] 12/21/19 17:10 [id number] 12/21/19 17:09 PMRU Outcome: Mobility Physical Therapy Evaluation and Yes Treatment Activity OOB with Assistance Yes WBAT Yes NWB No TTWB No Device Yes Assistance Yes Patient to be seen 5x/wk for 60-120 min/ Therex day for: Mobility Training Gait Training Balance Current Mobility Outcome/Goals Maintain/ Achieve Baseline Mobility Status Improve Mobility Status Demonstrates Proper Use of Assistive Devices Free from Complications of Immobility Progression Toward Outcome/Goals Goal Initiation Bed Mobility Yes: Independent Transfers Yes: Independent with LRD Gait x ft Yes: 150' Independent with LRD W/C Mobility x ft No Up/Down Stairs Yes: Supervision, 5 steps with 2 rail With HEP Yes: Independent Nutrition/Swallowing- Improve/Maintain Start: 12/21/19 18:08 Freq: DAILY@699,[id number] Status: Active Target: 01/04/20 Protocol: Activity Type Activity Date Activity User E-Sign Co-Sign Detail Recorded Client Recorded Date Recorded By Document 01/01/20 07:00 [id number] 01/01/20 08:00 [id number] 01/01/20 07:00 PMRU Outcome: Nutrition/Swallowing Current Nutrition/Swallowing Outcome/ Demonstrates Goals Adequate Hydration/ Prevents Dehydration Maintain/ Improve Nutritional Status Progression Toward Outcome/Goals Not Progressing Lack of Progression Comment Fluids, milkshake provided, encouraged Pain/Comfort- Improve/Maintain Start: 12/21/19 18:08 Freq: DAILY@ Status: Active Target: 01/04/20 Protocol: Activity Type Activity Date Activity User E-Sign Co-Sign Detail Recorded Client Recorded Date Recorded By Document 01/01/20 07:00 [id number] 01/01/20 08:00 [id number] 01/01/20 07:00 PMRU Outcome: Pain/Comfort Current Pain/Comfort Outcome/Goals Demonstrates Knowledge and Use of Available Comfort Measures Achieves Acceptable Comfort/Pain Level as Determined by Patient/Condit Maintain Comfort Level Allowing Patient to Fully Participate in Rehab Progression Toward Outcome/Goals Progressing Outcome/Goals Met Comment pt denied any pain Rec Therapy- Improve/Maintain Start: 12/21/19 16:00 Freq: DAILY@[id number] Status: Active Target: 01/08/20 Protocol: Activity Type Activity Date Activity User E-Sign Co-Sign Detail Recorded Client Recorded Date Recorded By Document 12/31/19 16:50 [id number] [email or web address] 12/31/19 16:50 [id number] 12/31/19 16:50 PMRU Outcome: Recreation Therapy Current Rec Ther Outcome/Goals Complete Rec Therapy Assessment Meet with Patient Regularly for Support Encourage Leisure Involvement Progression Toward Outcome/Goals Progressing Outcome/Goals Met Complete Rec Therapy Assessment Safety- Improve/Maintain Start: 12/21/19 10:58 Freq: DAILY@0700,1900 Status: Active Target: 01/04/20 Protocol: Activity Type Activity Date Activity User E-Sign Co-Sign Detail Recorded Client Recorded Date Recorded By Document 01/01/20 07:00 [id number] 01/01/20 08:00 [id number] 01/01/20 07:00 PMRU Outcome: Safety Current Safety Outcome/Goals Remain Free of Injury or Harm Cooperates with Safety Measures for Least Restrictive Environment Prevent Falls/ Injury Progression Toward Outcome/Goals Progressing Outcome/Goals Met Comment BA armed Skin- Improve/Maintain Start: 12/21/19 18:08 Freq: DAILY@07,1900 Status: Active Target: 01/04/20 Protocol: Activity Type Activity Date Activity User E-Sign Co-Sign Detail Recorded Client Recorded Date Recorded By Document 01/01/20 07:00 [id number] 01/01/20 08:00 [id number] 01/01/20 07:00 PMRU Outcome: Skin Skin Risk Level Mild Risk Current Skin Outcome/Goals Maintain/ Improve Skin Integrity Free from Pressure Injury Surgical Incisions Healing Progression Toward Outcome/Goals Progressing - Interdisciplinary Staff Present Jewelry Casting Model Maker/Social Work Staff Present: Sarah Rabago LMSW Nursing Staff Present: Alyssa Qiu, RN OT Staff Present: My Roe PT Staff Present: Amor Summers DPT SENIOR PORTFOLIO ANALYST Staff Present: Tejinder Snow Medicine Note: Length of Stay: 7 days Anticipated Discharge Destination: Home Tentative Discharge Date: 01/08/20 Discharged to: Home
[2020-01-01] MEDS: CMCS: Pravastatin (NF) 20 MG TAB PO SCH (17:26)
[2020-01-01] MEDS: Magnesium Oxide TAB* 400 MG PO SCH (17:27)
--- NOTE | 2020-01-01 19:43 | PN ---
Progress Note Date of Service: 01/01/20 Note: SHARAD DIAMOND was visited. Therapy notes read and reviewed. He was discussed in interdisciplinary team rounds. He had his swallow study yesterday that showed the pills had delayed transit time through the esphagogastric junction. He is walking fairly well. Current Medications: Active Medications Generic Name Dose Route Start Last Admin Trade Name Freq PRN Reason Stop Dose Admin Acetaminophen 650 mg 12/31/19 17:00 Tylenol Adult Liq* PO Q6H PRN MILD PAIN/TEMPERATURE > 100.4 Amiodarone HCl 200 mg 12/28/19 09:00 01/01/20 12:01 Cordarone Tab* PO 200 mg DAILY KARINA Administration Aspirin 81 mg 01/01/20 09:00 01/01/20 12:00 Aspirin 81 Mg Chew Tab* PO 81 mg DAILY KARINA Administration Bisacodyl 10 mg 12/25/19 20:48 12/31/19 20:03 Dulcolax Supp* UT 10 mg DAILY PRN Administration CONSTIPATION Clopidogrel Bisulfate 75 mg 12/22/19 09:00 01/01/20 12:00 Plavix Tab* PO 75 mg DAILY KARINA Administration Docusate Sodium 100 mg 01/01/20 21:00 Colace Cap* PO BID KARINA Duloxetine HCl 60 mg 12/22/19 09:00 01/01/20 12:01 Cymbalta Cap* PO 60 mg DAILY KARINA Administration Furosemide 20 mg 12/22/19 09:00 01/01/20 12:01 Lasix Tab* PO 20 mg DAILY KARINA Administration Heparin Sodium (Porcine) 5,000 units 12/21/19 21:00 01/01/20 09:42 Heparin Vial(*) SUBCUT 5,000 units Q12HR KARINA Administration Lansoprazole 30 mg 01/01/20 09:00 01/01/20 09:49 Lansoprazole Susp* Oralsyr PO Not Given DAILY KARINA Lisinopril 5 mg 12/23/19 21:00 12/31/19 20:02 Prinivil Tab* PO 5 mg 2100 KARINA Administration Magnesium Oxide 400 mg 12/23/19 17:00 01/01/20 17:27 Magox 400 Tab* PO 400 mg 1700 KARINA Administration Metoprolol Succinate 100 mg 12/22/19 09:00 01/01/20 12:00 Toprol Xl Tab* PO 100 mg DAILY KARINA Administration Ondansetron HCl 4 mg 12/30/19 11:13 12/30/19 11:24 Zofran Odt Tab* SL 4 mg Q6H PRN Administration NAUSEA/VOMITING Pravastatin Sodium 20 mg 12/21/19 17:00 01/01/20 17:26 Pravachol (Nf) PO 20 mg 1700 KARINA Administration Senna 2 tab 12/21/19 12:22 12/30/19 20:22 Senokot 8.6 Mg Tab* PO 2 tab BEDTIME PRN Administration CONSTIPATION Spironolactone 12.5 mg 12/22/19 09:00 01/01/20 11:59 Aldactone Tab* PO 12.5 mg DAILY KARINA Administration Vital Signs: Vital Signs Temp Pulse Resp BP Pulse Ox 98.0 F 85 22 121/67 97 01/01/20 15:43 01/01/20 15:43 01/01/20 15:43 01/01/20 15:43 01/01/20 16:55 Exam: GENERAL: Alert and appropriate. LUNGS: Decreased breath sounds left lung field sitting up in chair. Right side clear to auscultation HEART: regular rate and rhythm. Pain reproduced with palpation over sternotomy site. ABDOMEN: + bowel sounds, soft, non-tender, non-distended EXTREMITIES: trace edema bilaterally NEUROLOGIC: BUE/BLE motor 5/5 with normal sensation. CN II-XII intact. SKIN: stenotomy site c/d/i. Assessment/Plan: 1. NSTEMI, CABG x5: Toprol/ASA/Pravachol/Lisinopril. PT/OT. Sternal Precautions 2. Pleural Effeusion: Lasix/Aldoactone. chest x-ray 12/29 looked stable. This was tapped in [employer]. 3. Atrial Fib: Amiodarone/Toprol 4. PVD, S/P Stent: Plavix/ASA 5. GI/Solids getting stuck: On PPI. Barium swallow today. GI to consult and speech also to see. bullion weigher helping with food consistencies. 6. DVT Prophylaxis: Heparin S/Q 7. Advance Directives: Full code. is surrogate decision maker 8. Sedation: Discontinued seroquel 12/28 with improvement 9. Whispering: Voice improved off seroquel, but still quiet. Speech therapy. 10. Renal insufficiency: Encourage po fluids once back and recheck P3 on 01/01. 01/01/20 19:43
[2020-01-01] MEDS: Docusate CAP* 100 MG PO SCH (20:57)
[2020-01-01] MEDS: Lisinopril TAB* 5 MG PO SCH (20:57)
[2020-01-02 04:39] LABS: Calcium 8.7 mg/dL (8.6-10.3); EGFR African American 54.5 (>60); Potassium 3.7 mmol/L (3.5-5.0)
[2020-01-02] MEDS: Heparin VIAL(*) 5000 UNITS/ML VIAL (FIVE THOUSAND) SUBCUT SCH ×2 (09:01→19:58)
[2020-01-02] MEDS: DULoxetine DR CAP* 60 MG CAP.DR PO SCH (09:04)
[2020-01-02] MEDS: Metoprolol Succinate XL TAB* 100 MG PO SCH (09:04)
[2020-01-02] MEDS: Furosemide TAB* 20 MG PO SCH (09:04)
[2020-01-02] MEDS: Clopidogrel TAB* 75 MG PO SCH (09:04)
[2020-01-02] MEDS: Docusate CAP* 100 MG PO SCH ×2 (09:04→19:50)
[2020-01-02] MEDS: Aspirin 81 mg CHEW TAB* 81 MG TAB.CHEW PO SCH (09:05)
[2020-01-02] MEDS: Amiodarone TAB* 200 MG PO SCH (09:05)
[2020-01-02] MEDS: Spironolactone TAB* 25 MG PO SCH (09:05)
[2020-01-02] MEDS: Lansoprazole SUSP* ORALSYR 3 MG/ML PO SCH (09:05)
[2020-01-02] MEDS: CMCS: Pravastatin (NF) 20 MG TAB PO SCH (17:16)
[2020-01-02] MEDS: Magnesium Oxide TAB* 400 MG PO SCH (17:16)
--- NOTE | 2020-01-02 18:55 | PN ---
Progress Note Date of Service: 01/02/20 Note: SHARAD DIAMOND was visited. Therapy notes read and reviewed. Feels a little better but appetite still hit or miss. was in for training today Current Medications: Active Medications Generic Name Dose Route Start Last Admin Trade Name Freq PRN Reason Stop Dose Admin Acetaminophen 650 mg 12/31/19 17:00 Tylenol Adult Liq* PO Q6H PRN MILD PAIN/TEMPERATURE > 100.4 Amiodarone HCl 200 mg 12/28/19 09:00 01/02/20 09:05 Cordarone Tab* PO 200 mg DAILY KARINA Administration Aspirin 81 mg 01/01/20 09:00 01/02/20 09:05 Aspirin 81 Mg Chew Tab* PO 81 mg DAILY KARINA Administration Bisacodyl 10 mg 12/25/19 20:48 01/02/20 15:52 Dulcolax Supp* [place] 10 mg DAILY PRN Administration CONSTIPATION Clopidogrel Bisulfate 75 mg 12/22/19 09:00 01/02/20 09:04 Plavix Tab* PO 75 mg DAILY KARINA Administration Docusate Sodium 100 mg 01/01/20 21:00 01/02/20 09:04 Colace Cap* PO 100 mg BID KARINA Administration Duloxetine HCl 60 mg 12/22/19 09:00 01/02/20 09:04 Cymbalta Cap* PO 60 mg DAILY KARINA Administration Furosemide 20 mg 12/22/19 09:00 01/02/20 09:04 Lasix Tab* PO 20 mg DAILY KARINA Administration Heparin Sodium (Porcine) 5,000 units 12/21/19 21:00 01/02/20 09:01 Heparin Vial(*) SUBCUT 5,000 units Q12HR KARINA Administration Lisinopril 5 mg 12/23/19 21:00 01/01/20 20:57 Prinivil Tab* PO 5 mg 2100 KARINA Administration Magnesium Oxide 400 mg 12/23/19 17:00 01/02/20 17:16 Magox 400 Tab* PO 400 mg 1700 KARINA Administration Metoprolol Succinate 100 mg 12/22/19 09:00 01/02/20 09:04 Toprol Xl Tab* PO 100 mg DAILY KARINA Administration Ondansetron HCl 4 mg 12/30/19 11:13 12/30/19 11:24 Zofran Odt Tab* SL 4 mg Q6H PRN Administration NAUSEA/VOMITING Pantoprazole Sodium 40 mg 01/03/20 09:00 Protonix Tab* PO DAILY KARINA Potassium Chloride 20 meq 01/03/20 09:00 Klor Con Er Tab* PO DAILY AKRINA Pravastatin Sodium 20 mg 12/21/19 17:00 01/02/20 17:16 Pravachol (Nf) PO 20 mg 1700 KARINA Administration Senna 2 tab 12/21/19 12:22 12/30/19 20:22 Senokot 8.6 Mg Tab* PO 2 tab BEDTIME PRN Administration CONSTIPATION Spironolactone 12.5 mg 12/22/19 09:00 01/02/20 09:05 Aldactone Tab* PO 12.5 mg DAILY KARINA Administration Vital Signs: Vital Signs Temp Pulse Resp BP Pulse Ox 97.8 F 84 22 98/64 97 01/02/20 16:18 01/02/20 16:18 01/02/20 16:18 01/02/20 16:18 01/02/20 17:39 Lab Results: Laboratory Results - last 24 hr 01/02/20 03:44 Sodium 137 Potassium 3.7 Chloride 99 L Carbon Dioxide 29 Anion Gap 9 BUN 24 Creatinine 1.50 H Est GFR ( Amer) 54.5 Est GFR (Non-Af Amer) 45.0 BUN/Creatinine Ratio 16.0 Glucose 92 Calcium 8.7 Exam: GENERAL: Alert and appropriate. LUNGS: Decreased breath sounds left lung field sitting up in chair. Right side clear to auscultation HEART: regular rate and rhythm. Pain reproduced with palpation over sternotomy site. ABDOMEN: + bowel sounds, soft, non-tender, non-distended EXTREMITIES: trace edema bilaterally NEUROLOGIC: BUE/BLE motor 5/5 with normal sensation. CN II-XII intact. SKIN: stenotomy site c/d/i. Assessment/Plan: 1. NSTEMI, CABG x5: Toprol/ASA/Pravachol/Lisinopril. PT/OT. Sternal Precautions 2. Pleural Effeusion: Lasix/Aldoactone. chest x-ray 12/29 looked stable. This was tapped in [place]. 3. Atrial Fib: Amiodarone/Toprol 4. PVD, S/P Stent: Plavix/ASA 5. GI/Solids getting stuck: On PPI. Barium swallow showed delayed transition through esophagogastric junction. 6. DVT Prophylaxis: Heparin S/Q 7. Advance Directives: Full code. is surrogate decision maker 8. Sedation: Discontinued seroquel 12/28 with some improvement 9. Whispering: Voice improved off seroquel, but still quiet. Speech therapy. 10. Renal insufficiency: Encourage po fluids once back and recheck P3 on 01/01. 01/02/20 18:55
[2020-01-02] MEDS: Lisinopril TAB* 5 MG PO SCH (19:55)
[2020-01-03] MEDS: Heparin VIAL(*) 5000 UNITS/ML VIAL (FIVE THOUSAND) SUBCUT SCH ×2 (09:50→19:53)
[2020-01-03] MEDS: Potassium Chlor TAB* 20 MEQ TAB.ER PO SCH (09:54)
[2020-01-03] MEDS: Metoprolol Succinate XL TAB* 100 MG PO SCH (09:54)
[2020-01-03] MEDS: Furosemide TAB* 20 MG PO SCH (09:54)
[2020-01-03] MEDS: Pantoprazole TAB * 40 MG TAB PO SCH (09:54)
[2020-01-03] MEDS: Docusate CAP* 100 MG PO SCH ×2 (09:54→19:56)
[2020-01-03] MEDS: Clopidogrel TAB* 75 MG PO SCH (09:54)
[2020-01-03] MEDS: DULoxetine DR CAP* 60 MG CAP.DR PO SCH (09:54)
[2020-01-03] MEDS: Aspirin 81 mg CHEW TAB* 81 MG TAB.CHEW PO SCH (09:54)
[2020-01-03] MEDS: Amiodarone TAB* 200 MG PO SCH (09:55)
[2020-01-03] MEDS: Spironolactone TAB* 25 MG PO SCH (09:55)
[2020-01-03] MEDS: Magnesium Oxide TAB* 400 MG PO SCH (17:43)
[2020-01-03] MEDS: CMCS: Pravastatin (NF) 20 MG TAB PO SCH (17:43)
--- NOTE | 2020-01-03 18:40 | PN ---
Progress Note Date of Service: 01/03/20 Note: SHARAD DIAMOND was visited. Therapy notes read and reviewed. He has been doing okay mobility swanson, but still has a hard time eating. No other complaints Current Medications: Active Medications Generic Name Dose Route Start Last Admin Trade Name Freq PRN Reason Stop Dose Admin Acetaminophen 650 mg 12/31/19 17:00 Tylenol Adult Liq* PO Q6H PRN MILD PAIN/TEMPERATURE > 100.4 Amiodarone HCl 200 mg 12/28/19 09:00 01/03/20 09:55 Cordarone Tab* PO 200 mg DAILY KARINA Administration Aspirin 81 mg 01/01/20 09:00 01/03/20 09:54 Aspirin 81 Mg Chew Tab* PO 81 mg DAILY KARINA Administration Bisacodyl 10 mg 12/25/19 20:48 01/02/20 15:52 Dulcolax Supp* [place] 10 mg DAILY PRN Administration CONSTIPATION Clopidogrel Bisulfate 75 mg 12/22/19 09:00 01/03/20 09:54 Plavix Tab* PO 75 mg DAILY KARINA Administration Docusate Sodium 100 mg 01/01/20 21:00 01/03/20 09:54 Colace Cap* PO 100 mg BID KARINA Administration Duloxetine HCl 60 mg 12/22/19 09:00 01/03/20 09:54 Cymbalta Cap* PO 60 mg DAILY KARINA Administration Furosemide 20 mg 12/22/19 09:00 01/03/20 09:54 Lasix Tab* PO 20 mg DAILY KARINA Administration Heparin Sodium (Porcine) 5,000 units 12/21/19 21:00 01/03/20 09:50 Heparin Vial(*) SUBCUT 5,000 units Q12HR KARINA Administration Lisinopril 5 mg 12/23/19 21:00 01/02/20 19:55 Prinivil Tab* PO 5 mg 2100 KARINA Administration Magnesium Oxide 400 mg 12/23/19 17:00 01/03/20 17:43 Magox 400 Tab* PO 400 mg 1700 KARINA Administration Metoprolol Succinate 100 mg 12/22/19 09:00 01/03/20 09:54 Toprol Xl Tab* PO 100 mg DAILY KARINA Administration Ondansetron HCl 4 mg 12/30/19 11:13 12/30/19 11:24 Zofran Odt Tab* SL 4 mg Q6H PRN Administration NAUSEA/VOMITING Pantoprazole Sodium 40 mg 01/03/20 09:00 01/03/20 09:54 Protonix Tab* PO 40 mg DAILY KARINA Administration Potassium Chloride 20 meq 01/03/20 09:00 01/03/20 09:54 Klor Con Er Tab* PO 20 meq DAILY KARINA Administration Pravastatin Sodium 20 mg 12/21/19 17:00 01/03/20 17:43 Pravachol (Nf) PO 20 mg 1700 KARINA Administration Senna 2 tab 12/21/19 12:22 12/30/19 20:22 Senokot 8.6 Mg Tab* PO 2 tab BEDTIME PRN Administration CONSTIPATION Spironolactone 12.5 mg 12/22/19 09:00 01/03/20 09:55 Aldactone Tab* PO 12.5 mg DAILY KARINA Administration Vital Signs: Vital Signs Temp Pulse Resp BP Pulse Ox 97.7 F 85 24 102/69 98 01/03/20 16:12 01/03/20 16:12 01/03/20 16:12 01/03/20 16:12 01/03/20 16:12 Exam: GENERAL: Alert and appropriate. LUNGS: Decreased breath sounds left lung field sitting up in chair. Right side clear to auscultation HEART: regular rate and rhythm. Pain reproduced with palpation over sternotomy site. ABDOMEN: + bowel sounds, soft, non-tender, non-distended EXTREMITIES: trace edema bilaterally NEUROLOGIC: BUE/BLE motor 5/5 with normal sensation. CN II-XII intact. SKIN: stenotomy site c/d/i. Assessment/Plan: 1. NSTEMI, CABG x5: Toprol/ASA/Pravachol/Lisinopril. PT/OT. Sternal Precautions 2. Pleural Effeusion: Lasix/Aldoactone. chest x-ray 12/29 looked stable. This was tapped in [place]. 3. Atrial Fib: Amiodarone/Toprol 4. PVD, S/P Stent: Plavix/ASA 5. GI/Solids getting stuck: On PPI. Barium swallow showed delayed transition through esophagogastric junction. 6. DVT Prophylaxis: Heparin S/Q 7. Advance Directives: Full code. is surrogate decision maker 8. Sedation: Discontinued seroquel 12/28 with some improvement 9. Whispering: Voice improved off seroquel, but still quiet. Speech therapy. 10. Renal insufficiency: Encourage po fluids 01/03/20 18:41
[2020-01-03] MEDS: Lisinopril TAB* 5 MG PO SCH (19:47)
[2020-01-03] MEDS: Senna TAB 8.6 mg* TAB PO PRN (19:48)
[2020-01-04] MEDS: DULoxetine DR CAP* 60 MG CAP.DR PO SCH (08:37)
[2020-01-04] MEDS: Aspirin 81 mg CHEW TAB* 81 MG TAB.CHEW PO SCH (08:37)
[2020-01-04] MEDS: Furosemide TAB* 20 MG PO SCH (08:37)
[2020-01-04] MEDS: Metoprolol Succinate XL TAB* 100 MG PO SCH (08:37)
[2020-01-04] MEDS: Potassium Chlor TAB* 20 MEQ TAB.ER PO SCH (08:37)
[2020-01-04] MEDS: Pantoprazole TAB * 40 MG TAB PO SCH (08:38)
[2020-01-04] MEDS: Amiodarone TAB* 200 MG PO SCH (08:38)
[2020-01-04] MEDS: Spironolactone TAB* 25 MG PO SCH (08:38)
[2020-01-04] MEDS: Docusate CAP* 100 MG PO SCH ×2 (08:38→20:43)
[2020-01-04] MEDS: Clopidogrel TAB* 75 MG PO SCH (08:38)
[2020-01-04] MEDS: Heparin VIAL(*) 5000 UNITS/ML VIAL (FIVE THOUSAND) SUBCUT SCH ×2 (08:39→20:45)
[2020-01-04] MEDS: CMCS: Pravastatin (NF) 20 MG TAB PO SCH (17:37)
[2020-01-04] MEDS: Magnesium Oxide TAB* 400 MG PO SCH (17:37)
--- NOTE | 2020-01-04 18:57 | PN ---
Progress Note Date of Service: 01/04/20 Note: SHARAD DIAMOND was visited. Therapy notes read and reviewed. Seems flat and disinterested in addition to not wanting to eat. D/W psychiatry and will add Remeron at bedtime. Would normally use Ritalin but has A fib. This seems to predate his CABG and [place] Current Medications: Active Medications Generic Name Dose Route Start Last Admin Trade Name Freq PRN Reason Stop Dose Admin Acetaminophen 650 mg 12/31/19 17:00 Tylenol Adult Liq* PO Q6H PRN MILD PAIN/TEMPERATURE > 100.4 Amiodarone HCl 200 mg 12/28/19 09:00 01/04/20 08:38 Cordarone Tab* PO 200 mg DAILY KARINA Administration Aspirin 81 mg 01/01/20 09:00 01/04/20 08:37 Aspirin 81 Mg Chew Tab* PO 81 mg DAILY KARINA Administration Bisacodyl 10 mg 12/25/19 20:48 01/02/20 15:52 Dulcolax Supp* [place] 10 mg DAILY PRN Administration CONSTIPATION Clopidogrel Bisulfate 75 mg 12/22/19 09:00 01/04/20 08:38 Plavix Tab* PO 75 mg DAILY KARINA Administration Docusate Sodium 100 mg 01/01/20 21:00 01/04/20 08:38 Colace Cap* PO 100 mg BID KARINA Administration Duloxetine HCl 60 mg 12/22/19 09:00 01/04/20 08:37 Cymbalta Cap* PO 60 mg DAILY KARINA Administration Furosemide 20 mg 12/22/19 09:00 01/04/20 08:37 Lasix Tab* PO 20 mg DAILY KARINA Administration Heparin Sodium (Porcine) 5,000 units 12/21/19 21:00 01/04/20 08:39 Heparin Vial(*) SUBCUT 5,000 units Q12HR KARINA Administration Lisinopril 5 mg 12/23/19 21:00 01/03/20 19:47 Prinivil Tab* PO 5 mg 2100 KARINA Administration Magnesium Oxide 400 mg 12/23/19 17:00 01/04/20 17:37 Magox 400 Tab* PO 400 mg 1700 KARINA Administration Metoprolol Succinate 100 mg 12/22/19 09:00 01/04/20 08:37 Toprol Xl Tab* PO 100 mg DAILY KARINA Administration Mirtazapine 7.5 mg 01/04/20 21:00 Remeron Tab* PO BEDTIME KARINA Ondansetron HCl 4 mg 12/30/19 11:13 12/30/19 11:24 Zofran Odt Tab* SL 4 mg Q6H PRN Administration NAUSEA/VOMITING Pantoprazole Sodium 40 mg 01/03/20 09:00 01/04/20 08:38 Protonix Tab* PO 40 mg DAILY KARINA Administration Potassium Chloride 20 meq 01/03/20 09:00 01/04/20 08:37 Klor Con Er Tab* PO 20 meq DAILY KARINA Administration Pravastatin Sodium 20 mg 12/21/19 17:00 01/04/20 17:37 Pravachol (Nf) PO 20 mg 1700 KARINA Administration Senna 2 tab 12/21/19 12:22 01/03/20 19:48 Senokot 8.6 Mg Tab* PO 2 tab BEDTIME PRN Administration CONSTIPATION Spironolactone 12.5 mg 12/22/19 09:00 01/04/20 08:38 Aldactone Tab* PO 12.5 mg DAILY KARINA Administration Vital Signs: Vital Signs Temp Pulse Resp BP Pulse Ox 98.1 F 82 17 100/58 96 01/04/20 14:48 01/04/20 14:48 01/04/20 14:48 01/04/20 14:48 01/04/20 14:48 Exam: GENERAL: Alert and appropriate. LUNGS: Decreased breath sounds left lung field sitting up in chair. Right side clear to auscultation HEART: regular rate and rhythm. Pain reproduced with palpation over sternotomy site. ABDOMEN: + bowel sounds, soft, non-tender, non-distended EXTREMITIES: trace edema bilaterally NEUROLOGIC: BUE/BLE motor 5/5 with normal sensation. CN II-XII intact. SKIN: stenotomy site c/d/i. Assessment/Plan: 1. NSTEMI, CABG x5: Toprol/ASA/Pravachol/Lisinopril. PT/OT. Sternal Precautions 2. Pleural Effeusion: Lasix/Aldoactone. chest x-ray 12/29 looked stable. This was tapped in [place]. 3. Atrial Fib: Amiodarone/Toprol 4. PVD, S/P Stent: Plavix/ASA 5. GI/Solids getting stuck: On PPI. Barium swallow showed delayed transition through esophagogastric junction. May need to call GI back 6. DVT Prophylaxis: Heparin S/Q 7. Advance Directives: Full code. is surrogate decision maker 8. Depression: Add Remeron at HS 9. Whispering: Voice improved off seroquel, but still quiet. Speech therapy. 10. Renal insufficiency: Encourage po fluids 01/04/20 18:57
[2020-01-04] MEDS: Mirtazapine TAB* 15 MG PO SCH (20:44)
[2020-01-04] MEDS: Lisinopril TAB* 5 MG PO SCH (20:44)
[2020-01-05] MEDS: Spironolactone TAB* 25 MG PO SCH (09:03)
[2020-01-05] MEDS: DULoxetine DR CAP* 60 MG CAP.DR PO SCH (09:03)
[2020-01-05] MEDS: Potassium Chlor TAB* 20 MEQ TAB.ER PO SCH (09:03)
[2020-01-05] MEDS: Pantoprazole TAB * 40 MG TAB PO SCH (09:04)
[2020-01-05] MEDS: Metoprolol Succinate XL TAB* 100 MG PO SCH (09:04)
[2020-01-05] MEDS: Heparin VIAL(*) 5000 UNITS/ML VIAL (FIVE THOUSAND) SUBCUT SCH ×2 (09:12→20:45)
[2020-01-05] MEDS: Clopidogrel TAB* 75 MG PO SCH (09:41)
[2020-01-05] MEDS: Furosemide TAB* 20 MG PO SCH (09:42)
[2020-01-05] MEDS: Aspirin 81 mg CHEW TAB* 81 MG TAB.CHEW PO SCH (09:42)
[2020-01-05] MEDS: Docusate CAP* 100 MG PO SCH ×2 (09:42→20:44)
[2020-01-05] MEDS: Amiodarone TAB* 200 MG PO SCH (09:42)
--- NOTE | 2020-01-05 12:35 | PN ---
Progress Note Date of Service: 01/05/20 Note: SHARAD DIAMOND was visited. Nursing notes read and reviewed. He remains flat. Started Remeron last night. No apparent change noted. Current Medications: Active Medications Generic Name Dose Route Start Last Admin Trade Name Freq PRN Reason Stop Dose Admin Acetaminophen 650 mg 12/31/19 17:00 Tylenol Adult Liq* PO Q6H PRN MILD PAIN/TEMPERATURE > 100.4 Amiodarone HCl 200 mg 12/28/19 09:00 01/05/20 09:42 Cordarone Tab* PO 200 mg DAILY KARINA Administration Aspirin 81 mg 01/01/20 09:00 01/05/20 09:42 Aspirin 81 Mg Chew Tab* PO 81 mg DAILY KARINA Administration Bisacodyl 10 mg 12/25/19 20:48 01/02/20 15:52 Dulcolax Supp* [place] 10 mg DAILY PRN Administration CONSTIPATION Clopidogrel Bisulfate 75 mg 12/22/19 09:00 01/05/20 09:41 Plavix Tab* PO 75 mg DAILY KARINA Administration Docusate Sodium 100 mg 01/01/20 21:00 01/05/20 09:42 Colace Cap* PO 100 mg BID KARINA Administration Duloxetine HCl 60 mg 12/22/19 09:00 01/05/20 09:03 Cymbalta Cap* PO 60 mg DAILY KARINA Administration Furosemide 20 mg 12/22/19 09:00 01/05/20 09:42 Lasix Tab* PO 20 mg DAILY KARINA Administration Heparin Sodium (Porcine) 5,000 units 12/21/19 21:00 01/05/20 09:12 Heparin Vial(*) SUBCUT 5,000 units Q12HR KARINA Administration Lisinopril 5 mg 12/23/19 21:00 01/04/20 20:44 Prinivil Tab* PO 5 mg 2100 KARINA Administration Magnesium Oxide 400 mg 12/23/19 17:00 01/04/20 17:37 Magox 400 Tab* PO 400 mg 1700 KARINA Administration Metoprolol Succinate 100 mg 12/22/19 09:00 01/05/20 09:04 Toprol Xl Tab* PO 100 mg DAILY KARINA Administration Mirtazapine 7.5 mg 01/04/20 21:00 01/04/20 20:44 Remeron Tab* PO 7.5 mg BEDTIME KARINA Administration Ondansetron HCl 4 mg 12/30/19 11:13 12/30/19 11:24 Zofran Odt Tab* SL 4 mg Q6H PRN Administration NAUSEA/VOMITING Pantoprazole Sodium 40 mg 01/03/20 09:00 01/05/20 09:04 Protonix Tab* PO 40 mg DAILY KARINA Administration Potassium Chloride 20 meq 01/03/20 09:00 01/05/20 09:03 Klor Con Er Tab* PO 20 meq DAILY KARINA Administration Pravastatin Sodium 20 mg 12/21/19 17:00 01/04/20 17:37 Pravachol (Nf) PO 20 mg 1700 KARINA Administration Senna 2 tab 12/21/19 12:22 01/03/20 19:48 Senokot 8.6 Mg Tab* PO 2 tab BEDTIME PRN Administration CONSTIPATION Spironolactone 12.5 mg 12/22/19 09:00 01/05/20 09:03 Aldactone Tab* PO 12.5 mg DAILY KARINA Administration Vital Signs: Vital Signs Temp Pulse Resp BP Pulse Ox 98.4 F 83 18 101/55 97 01/05/20 06:02 01/05/20 06:02 01/05/20 06:02 01/05/20 06:02 01/05/20 08:00 Exam: GENERAL: Alert and appropriate. LUNGS: Decreased breath sounds left lung field sitting up in chair. Right side clear to auscultation HEART: regular rate and rhythm. Pain reproduced with palpation over sternotomy site. ABDOMEN: + bowel sounds, soft, non-tender, non-distended EXTREMITIES: trace edema bilaterally NEUROLOGIC: BUE/BLE motor 5/5 with normal sensation. CN II-XII intact. SKIN: stenotomy site c/d/i. Assessment/Plan: 1. NSTEMI, CABG x5: Toprol/ASA/Pravachol/Lisinopril. PT/OT. Sternal Precautions 2. Pleural Effeusion: Lasix/Aldoactone. chest x-ray 12/29 looked stable. This was tapped in [place]. 3. Atrial Fib: Amiodarone/Toprol 4. PVD, S/P Stent: Plavix/ASA 5. GI/Solids getting stuck: On PPI. Barium swallow showed delayed transition through esophagogastric junction. May need to call GI back 6. DVT Prophylaxis: Heparin S/Q 7. Advance Directives: Full code. is surrogate decision maker 8. Depression: Added Remeron at HS, will check TSH with Tuesday's labs 9. Whispering: Voice improved off seroquel, but still quiet. Speech therapy. 10. Renal insufficiency: Encourage po fluids 01/05/20 12:36
[2020-01-05] MEDS: Magnesium Oxide TAB* 400 MG PO SCH (17:25)
[2020-01-05] MEDS: CMCS: Pravastatin (NF) 20 MG TAB PO SCH (17:25)
[2020-01-05] MEDS: Lisinopril TAB* 5 MG PO SCH (20:44)
[2020-01-05] MEDS: Mirtazapine TAB* 15 MG PO SCH (20:44)
[2020-01-05] MEDS: Senna TAB 8.6 mg* TAB PO PRN (20:45)
[2020-01-06] MEDS: Pantoprazole TAB * 40 MG TAB PO SCH (09:15)
[2020-01-06] MEDS: Amiodarone TAB* 200 MG PO SCH (09:15)
[2020-01-06] MEDS: Metoprolol Succinate XL TAB* 100 MG PO SCH (09:15)
[2020-01-06] MEDS: Heparin VIAL(*) 5000 UNITS/ML VIAL (FIVE THOUSAND) SUBCUT SCH ×2 (09:16→21:18)
[2020-01-06] MEDS: DULoxetine DR CAP* 60 MG CAP.DR PO SCH (09:16)
[2020-01-06] MEDS: Furosemide TAB* 20 MG PO SCH (09:16)
[2020-01-06] MEDS: Clopidogrel TAB* 75 MG PO SCH (10:00)
[2020-01-06] MEDS: Spironolactone TAB* 25 MG PO SCH (10:01)
[2020-01-06] MEDS: Aspirin 81 mg CHEW TAB* 81 MG TAB.CHEW PO SCH (10:01)
[2020-01-06] MEDS: Potassium Chlor TAB* 20 MEQ TAB.ER PO SCH (10:01)
[2020-01-06] MEDS: Docusate CAP* 100 MG PO SCH ×2 (10:01→21:14)
--- NOTE | 2020-01-06 14:59 | PN ---
Progress Note Date of Service: 01/06/20 Note: SHARAD DIAMOND was visited. Nursing notes read and reviewed. Ate slightly better today and seems a little more upbeat. Will observe Current Medications: Active Medications Generic Name Dose Route Start Last Admin Trade Name Freq PRN Reason Stop Dose Admin Acetaminophen 650 mg 12/31/19 17:00 Tylenol Adult Liq* PO Q6H PRN MILD PAIN/TEMPERATURE > 100.4 Amiodarone HCl 200 mg 12/28/19 09:00 01/06/20 09:15 Cordarone Tab* PO 200 mg DAILY KARINA Administration Aspirin 81 mg 01/01/20 09:00 01/06/20 10:01 Aspirin 81 Mg Chew Tab* PO 81 mg DAILY KARINA Administration Bisacodyl 10 mg 12/25/19 20:48 01/05/20 15:26 Dulcolax Supp* [place] 10 mg DAILY PRN Administration CONSTIPATION Clopidogrel Bisulfate 75 mg 12/22/19 09:00 01/06/20 10:00 Plavix Tab* PO 75 mg DAILY KARINA Administration Docusate Sodium 100 mg 01/01/20 21:00 01/06/20 10:01 Colace Cap* PO 100 mg BID KARINA Administration Duloxetine HCl 60 mg 12/22/19 09:00 01/06/20 09:16 Cymbalta Cap* PO 60 mg DAILY KARINA Administration Furosemide 20 mg 12/22/19 09:00 01/06/20 09:16 Lasix Tab* PO 20 mg DAILY KARINA Administration Heparin Sodium (Porcine) 5,000 units 12/21/19 21:00 01/06/20 09:16 Heparin Vial(*) SUBCUT 5,000 units Q12HR KARINA Administration Lisinopril 5 mg 12/23/19 21:00 01/05/20 20:44 Prinivil Tab* PO 5 mg 2100 KARINA Administration Magnesium Oxide 400 mg 12/23/19 17:00 01/05/20 17:25 Magox 400 Tab* PO 400 mg 1700 KARINA Administration Metoprolol Succinate 100 mg 12/22/19 09:00 01/06/20 09:15 Toprol Xl Tab* PO 100 mg DAILY KARINA Administration Mirtazapine 7.5 mg 01/04/20 21:00 01/05/20 20:44 Remeron Tab* PO 7.5 mg BEDTIME KARINA Administration Ondansetron HCl 4 mg 12/30/19 11:13 12/30/19 11:24 Zofran Odt Tab* SL 4 mg Q6H PRN Administration NAUSEA/VOMITING Pantoprazole Sodium 40 mg 01/03/20 09:00 01/06/20 09:15 Protonix Tab* PO 40 mg DAILY KARINA Administration Potassium Chloride 20 meq 01/03/20 09:00 01/06/20 10:01 Klor Con Er Tab* PO 20 meq DAILY KARINA Administration Pravastatin Sodium 20 mg 12/21/19 17:00 01/05/20 17:25 Pravachol (Nf) PO 20 mg 1700 KARINA Administration Senna 2 tab 12/21/19 12:22 01/05/20 20:45 Senokot 8.6 Mg Tab* PO 2 tab BEDTIME PRN Administration CONSTIPATION Spironolactone 12.5 mg 12/22/19 09:00 01/06/20 10:01 Aldactone Tab* PO 12.5 mg DAILY KARINA Administration Vital Signs: Vital Signs Temp Pulse Resp BP Pulse Ox 98.7 F 86 18 107/50 98 01/06/20 05:02 01/06/20 05:02 01/06/20 08:00 01/06/20 05:02 01/06/20 08:00 Exam: GENERAL: Alert and appropriate. LUNGS: Decreased breath sounds left lung field sitting up in chair. Right side clear to auscultation HEART: regular rate and rhythm. Pain reproduced with palpation over sternotomy site. ABDOMEN: + bowel sounds, soft, non-tender, non-distended EXTREMITIES: trace edema bilaterally NEUROLOGIC: BUE/BLE motor 5/5 with normal sensation. CN II-XII intact. SKIN: stenotomy site c/d/i. Assessment/Plan: 1. NSTEMI, CABG x5: Toprol/ASA/Pravachol/Lisinopril. PT/OT. Sternal Precautions 2. Pleural Effeusion: Lasix/Aldoactone. chest x-ray 12/29 looked stable. This was tapped in [place]. 3. Atrial Fib: Amiodarone/Toprol 4. PVD, S/P Stent: Plavix/ASA 5. GI/Solids getting stuck: On PPI. Barium swallow showed delayed transition through esophagogastric junction. May need to call GI back 6. DVT Prophylaxis: Heparin S/Q 7. Advance Directives: Full code. is surrogate decision maker 8. Depression: Added Remeron at HS, will check TSH with Tuesday's labs 9. Whispering: Voice improved off seroquel, but still quiet. Speech therapy. 10. Renal insufficiency: Encourage po fluids 01/06/20 15:00
[2020-01-06] MEDS: Magnesium Oxide TAB* 400 MG PO SCH (17:21)
[2020-01-06] MEDS: CMCS: Pravastatin (NF) 20 MG TAB PO SCH (17:21)
[2020-01-06] MEDS: Senna TAB 8.6 mg* TAB PO PRN (21:13)
[2020-01-06] MEDS: Lisinopril TAB* 5 MG PO SCH (21:14)
[2020-01-06] MEDS: Mirtazapine TAB* 15 MG PO SCH (21:15)
[2020-01-07 04:42] LABS: Hematocrit 33 % (42-52); Hemoglobin 11.3 g/dL (14.0-18.0); Mean Corpuscular HGB Conc 34 g/dL (31-36); Mean Corpuscular Hemoglobin 30 pg (27-31); Mean Corpuscular Volume 90 fL (80-94); Mean Platelet Volume 7.5 fL (7.4-10.4); Platelet Count 298 10^3/uL (150-450); Red Cell Distribution Width 17 % (10-15); White Blood Count 7.2 10^3/uL (3.5-10.8)
[2020-01-07 04:53] LABS: BUN/Creatinine Ratio 10.7 (8-20); Calcium 9.2 mg/dL (8.6-10.3); EGFR African American 36.2 (>60); EGFR Non-African American 29.9 (>60); Globulin 3.1 g/dL (2-4); Potassium 4.2 mmol/L (3.5-5.0); Total Bilirubin 0.5 mg/dL (0.2-1.0); Total Protein 6.1 g/dL (6.4-8.9)
[2020-01-07 05:00] LABS: ABS Eosinophils 0.3 10^3/ul (0-0.6); ABS Lymphocytes 1.7 10^3/ul (1.0-4.8); ABS Monocytes 0.6 10^3/ul (0-0.8); ABS Neutrophils 4.6 10^3/ul (1.5-7.7); Eosinophil % 4.1 %; Lymphocyte % 23.1 %
[2020-01-07 05:08] LABS: TSH (Thyroid Stimulating Horm) 6.3 mcIU/mL (0.34-5.60)
[2020-01-07] MEDS: D5NS 0.9% 1000 ML BAG* 1,000 ML IV SCH (11:21)
[2020-01-07 11:36] LABS: Free T4 1.49 ng/dL (0.61-1.12)
--- NOTE | 2020-01-07 12:53 | CONSULT ---
Identification - Patient Identification Reason for Psychiatric Consultation: Incapacitating Symptoms -: Patient is a 79 year old, M admitted on 12/21/19. - MHU Identification Employment Status: Disabled Hx Psychiatric Hospitalization: No History - Objective HPI: Zane is an 79 y.o. , white male with a history of depression, currently admitted to the [facility] for rehabilitation following a 5-vessel CABG, performed one month ago at [facility] in [place], who is seen due to concerns that symptoms of depression are interfering with his rehabilitative treatment. The patient's situation was discussed over the phone with attending telephone maintainer Dr. Zeng on Tuesday (01/03) and a trial of mirtazapine 7.5mg PO qhs was started at that time. Currently, Zane is sitting up in a chair in his room, accompanied by his Anna, and struggling to eat his lunch. "I just don't have an appetite." I understand that his lack of PO intake has resulted in dehydration and the need for IV fluids. Additional neurovegetative symptoms endorsed by the patient include hypersomnolence, apathy, anhedonia, poor concentration, lethargy and hypophagia. He denies SI. The patient has been treated for depression for a number of years by his PCP, Dr. Stone in [place], [place]. This had been augmented with quetiapine, which is held on the PMRU due to sedation. So far he does not notice any untoward effects from the addition of mirtazapine. The patient was set for discharge tomorrow (01/07), however, questions about his 's ability to care for him at home have perhaps delayed this. The patient states that he doesn't necessarily feel depressed and expresses some optimism that once he can use his upper body more in one week, following a recommended 6-week period of limited upper extremity usage, things will become easier for him. He is pleasant and cooperative on exam with good eye contact and an extremely soft, whispered voice. The patient and his are agreeable with increasing the dose of his mirtazapine therapy. Exam Appearance: Thin Framed Hygiene: Normal Grooming: Well Kept Psychomotor Activities: Abnormal-Decreased Exhibits Abnormal Movement: No Attitude and Relatedness: Cooperative Eye Contact: Good - Speech Quality: Unpressured Latencies: Long Quantity: Terse Patient's Decription of Mood: "Okay" Observed Affect: Constricted Affect Consistent with: Dysphoria Patient's Thought Process: Coherent Thought Content: No Passive Wish, No Suicidal Planning, No Homicidal Ideation, No Paranoid Ideation Experiencing Hallucinations: No, Sensorium is Clear Type of Hallucinations: Visual: No, Auditory: No, Command: No Level of Consciousness: Alert Orientation: Yes Intact, Yes Orientated to Time, Yes Orientated to Place, Yes Orientated to Person Impulse Control: Intact Insight and Judgement: Fair Impression - Impression Clinical Impression: 79 y.o. , white male with a history of depression, currently admitted to the [facility] for rehabilitation following a 5-vessel CABG, performed one month ago at [facility] in [place], who is seen due to concerns that symptoms of depression are interfering with his rehabilitative treatment. Inpatient DSM-V Dx: F33.1 Merits Inpatient Hospitalization: No BSU: Problem List - Patient Problems (1) Major depressive disorder, recurrent, moderate Current Visit: Yes Status: Acute Priority: Medium Code(s): F33.1 - MAJOR DEPRESSIVE DISORDER, RECURRENT, MODERATE SNOMED Code(s): 836265024 Plan - Treatment Plan Treatment Plan: We have added mirtazpine 7.5mg PO qhs to his duloxetine 60mg PO qday. Will increase mirtazapine to 15mg PO nightly to target apathy and other neurovegetative symptoms of major depression. Thanks for consult. Patient may f/u with PCP if discharged. Psychiatry will continue to follow. Continued Medication Management: Different Medication Medications: Current Medications Acetaminophen (Tylenol Adult Liq*) 650 mg PO Q6H PRN PRN Reason: MILD PAIN/TEMPERATURE > 100.4 Amiodarone HCl (Cordarone Tab*) 200 mg PO DAILY [facility] Last Admin: 01/06/20 09:15 Dose: 200 mg Aspirin (Aspirin 81 Mg Chew Tab*) 81 mg PO DAILY [facility] Last Admin: 01/06/20 10:01 Dose: 81 mg Bisacodyl (Dulcolax Supp*) 10 mg [place] DAILY PRN PRN Reason: CONSTIPATION Last Admin: 01/05/20 15:26 Dose: 10 mg Clopidogrel Bisulfate (Plavix Tab*) 75 mg PO DAILY [facility] Last Admin: 01/06/20 10:00 Dose: 75 mg Docusate Sodium (Colace Cap*) 100 mg PO BID [facility] Last Admin: 01/06/20 21:14 Dose: 100 mg Duloxetine HCl (Cymbalta Cap*) 60 mg PO DAILY [facility] Last Admin: 01/06/20 09:16 Dose: 60 mg Furosemide (Lasix Tab*) 20 mg PO DAILY [facility] Last Admin: 01/06/20 09:16 Dose: 20 mg Heparin Sodium (Porcine) (Heparin Vial(*)) 5,000 units SUBCUT Q12HR [facility] Last Admin: 01/06/20 21:18 Dose: 5,000 units Dextrose/Sodium Chloride (D5ns 0.9% 1000 Ml Bag*) 1,000 mls @ 75 mls/hr IV PER RATE [facility] Stop: 01/08/20 00:19 Last Admin: 01/07/20 11:21 Dose: 75 mls/hr Levothyroxine Sodium (Synthroid Tab*) 25 mcg PO DAILY@0600 [facility] Lisinopril (Prinivil Tab*) 5 mg PO 2100 [facility] Last Admin: 01/06/20 21:14 Dose: 5 mg Magnesium Oxide (Magox 400 Tab*) 400 mg PO 1700 [facility] Last Admin: 01/06/20 17:21 Dose: 400 mg Metoprolol Succinate (Toprol Xl Tab*) 100 mg PO DAILY [facility] Last Admin: 01/06/20 09:15 Dose: 100 mg Mirtazapine (Remeron Tab*) 15 mg PO BEDTIME [facility] Ondansetron HCl (Zofran Odt Tab*) 4 mg SL Q6H PRN PRN Reason: NAUSEA/VOMITING Last Admin: 12/30/19 11:24 Dose: 4 mg Pantoprazole Sodium (Protonix Tab*) 40 mg PO DAILY [facility] Last Admin: 01/06/20 09:15 Dose: 40 mg Potassium Chloride (Klor Con Er Tab*) 20 meq PO DAILY [facility] Last Admin: 01/06/20 10:01 Dose: 20 meq Pravastatin Sodium (Pravachol (Nf)) 20 mg PO 1700 [facility] Last Admin: 01/06/20 17:21 Dose: 20 mg Senna (Senokot 8.6 Mg Tab*) 2 tab PO BEDTIME PRN PRN Reason: CONSTIPATION Last Admin: 01/06/20 21:13 Dose: 2 tab Spironolactone (Aldactone Tab*) 12.5 mg PO DAILY [facility] Last Admin: 01/06/20 10:01 Dose: 12.5 mg - Discharge Plan Discharge Plan: Outpatient Follow Up
[2020-01-07] MEDS: Amiodarone TAB* 200 MG PO SCH (14:30)
[2020-01-07] MEDS: Clopidogrel TAB* 75 MG PO SCH (14:31)
[2020-01-07] MEDS: Aspirin 81 mg CHEW TAB* 81 MG TAB.CHEW PO SCH (14:31)
[2020-01-07] MEDS: DULoxetine DR CAP* 60 MG CAP.DR PO SCH (14:32)
[2020-01-07] MEDS: Furosemide TAB* 20 MG PO SCH (14:32)
[2020-01-07] MEDS: Metoprolol Succinate XL TAB* 100 MG PO SCH (14:32)
[2020-01-07] MEDS: Pantoprazole TAB * 40 MG TAB PO SCH (14:33)
[2020-01-07] MEDS: Potassium Chlor TAB* 20 MEQ TAB.ER PO SCH (14:34)
[2020-01-07] MEDS: Spironolactone TAB* 25 MG PO SCH (14:40)
[2020-01-07] MEDS: Heparin VIAL(*) 5000 UNITS/ML VIAL (FIVE THOUSAND) SUBCUT SCH ×3 (14:48→19:44)
[2020-01-07] MEDS: Docusate CAP* 100 MG PO SCH ×2 (14:48→19:50)
[2020-01-07] MEDS: Magnesium Oxide TAB* 400 MG PO SCH (16:23)
[2020-01-07] MEDS: CMCS: Pravastatin (NF) 20 MG TAB PO SCH (16:23)
--- NOTE | 2020-01-07 17:43 | PN ---
Progress Note Date of Service: 01/07/20 Note: SHARAD DIAMOND was visited. Therapy notes read and reviewed. His TSH was elevated but his free T4 was normal. Therefore I will not treat him with Synthroid. His Cr has continued to rise and I think he is quite dry. Have given him IV fluids. Will keep him till Tuesday to make sure he is hydrated Current Medications: Active Medications Generic Name Dose Route Start Last Admin Trade Name Freq PRN Reason Stop Dose Admin Acetaminophen 650 mg 12/31/19 17:00 Tylenol Adult Liq* PO Q6H PRN MILD PAIN/TEMPERATURE > 100.4 Amiodarone HCl 200 mg 12/28/19 09:00 01/07/20 14:30 Cordarone Tab* PO 200 mg DAILY KARINA Administration Aspirin 81 mg 01/01/20 09:00 01/07/20 14:31 Aspirin 81 Mg Chew Tab* PO 81 mg DAILY KARINA Administration Bisacodyl 10 mg 12/25/19 20:48 01/05/20 15:26 Dulcolax Supp* [place] 10 mg DAILY PRN Administration CONSTIPATION Clopidogrel Bisulfate 75 mg 12/22/19 09:00 01/07/20 14:31 Plavix Tab* PO 75 mg DAILY KARINA Administration Docusate Sodium 100 mg 01/01/20 21:00 01/07/20 14:48 Colace Cap* PO Not Given BID KARINA Duloxetine HCl 60 mg 12/22/19 09:00 01/07/20 14:32 Cymbalta Cap* PO 60 mg DAILY KARINA Administration Furosemide 20 mg 12/22/19 09:00 01/07/20 14:32 Lasix Tab* PO 20 mg DAILY KARINA Administration Heparin Sodium (Porcine) 5,000 units 12/21/19 21:00 01/07/20 16:22 Heparin Vial(*) SUBCUT 5,000 units Q12HR KARINA Administration Dextrose/Sodium Chloride 1,000 mls @ 75 mls/hr 01/07/20 11:00 01/07/20 11:21 D5ns 0.9% 1000 Ml Bag* IV 01/09/20 00:19 75 mls/hr PER RATE KARINA Administration Levothyroxine Sodium 25 mcg 01/08/20 06:00 Synthroid Tab* PO DAILY@0600 KARINA Lisinopril 5 mg 12/23/19 21:00 01/06/20 21:14 Prinivil Tab* PO 5 mg 2100 KARINA Administration Magnesium Oxide 400 mg 12/23/19 17:00 01/07/20 16:23 Magox 400 Tab* PO 400 mg 1700 KARINA Administration Metoprolol Succinate 100 mg 12/22/19 09:00 01/07/20 14:32 Toprol Xl Tab* PO 100 mg DAILY KARINA Administration Mirtazapine 15 mg 01/07/20 21:00 Remeron Tab* PO BEDTIME KARINA Ondansetron HCl 4 mg 12/30/19 11:13 12/30/19 11:24 Zofran Odt Tab* SL 4 mg Q6H PRN Administration NAUSEA/VOMITING Pantoprazole Sodium 40 mg 01/03/20 09:00 01/07/20 14:33 Protonix Tab* PO 40 mg DAILY KARINA Administration Potassium Chloride 20 meq 01/03/20 09:00 01/07/20 14:34 Klor Con Er Tab* PO 20 meq DAILY KARINA Administration Pravastatin Sodium 20 mg 12/21/19 17:00 01/07/20 16:23 Pravachol (Nf) PO 20 mg 1700 KARINA Administration Senna 2 tab 12/21/19 12:22 01/06/20 21:13 Senokot 8.6 Mg Tab* PO 2 tab BEDTIME PRN Administration CONSTIPATION Spironolactone 12.5 mg 12/22/19 09:00 01/07/20 14:40 Aldactone Tab* PO 12.5 mg DAILY KARINA Administration Vital Signs: Vital Signs Temp Pulse Resp BP Pulse Ox 99.3 F 82 20 92/61 92 01/07/20 16:21 01/07/20 16:21 01/07/20 16:21 01/07/20 16:21 01/07/20 16:28 Lab Results: Laboratory Results - last 24 hr 01/07/20 01/07/20 03:50 03:50 WBC 7.2 RBC 3.70 L Hgb 11.3 L Hct 33 L MCV 90 MCH 30 MCHC 34 RDW 17 H Plt Count 298 MPV 7.5 Neut % (Auto) 63.3 Lymph % (Auto) 23.1 Karnes % (Auto) 8.9 Eos % (Auto) 4.1 Baso % (Auto) 0.6 Absolute Neuts (auto) 4.6 Absolute Lymphs (auto) 1.7 Absolute Monos (auto) 0.6 Absolute Eos (auto) 0.3 Absolute Basos (auto) 0.0 Absolute Nucleated RBC 0.0 Nucleated RBC % 0.0 Sodium 138 Potassium 4.2 Chloride 102 Carbon Dioxide 29 Anion Gap 7 BUN 23 Creatinine 2.14 H Est GFR ( Amer) 36.2 Est GFR (Non-Af Amer) 29.9 BUN/Creatinine Ratio 10.7 Glucose 90 Calcium 9.2 Total Bilirubin 0.50 AST 14 ALT 10 Alkaline Phosphatase 74 Total Protein 6.1 L Albumin 3.0 L Globulin 3.1 Albumin/Globulin Ratio 1.0 TSH 6.30 H Free T4 1.49 H Exam: GENERAL: Alert and appropriate. LUNGS: Decreased breath sounds left lung field sitting up in chair. Right side clear to auscultation HEART: regular rate and rhythm. Pain reproduced with palpation over sternotomy site. ABDOMEN: + bowel sounds, soft, non-tender, non-distended EXTREMITIES: trace edema bilaterally NEUROLOGIC: BUE/BLE motor 5/5 with normal sensation. CN II-XII intact. SKIN: stenotomy site c/d/i. Assessment/Plan: 1. NSTEMI, CABG x5: Toprol/ASA/Pravachol/Lisinopril. PT/OT. Sternal Precautions 2. Pleural Effeusion: Lasix/Aldoactone. chest x-ray 12/29 looked stable. This was tapped in [place]. 3. Atrial Fib: Amiodarone/Toprol 4. PVD, S/P Stent: Plavix/ASA 5. GI/Solids getting stuck: On PPI. Barium swallow showed delayed transition through esophagogastric junction. May need to call GI back 6. DVT Prophylaxis: Heparin S/Q 7. Advance Directives: Full code. is surrogate decision maker 8. Depression: Added Remeron at HS, will check TSH with Tuesday's labs 9. Whispering: Voice improved off seroquel, but still quiet. Speech therapy. 10. Renal insufficiency: Will order IV D5NS and monitor labs 01/07/20 17:43
[2020-01-07] MEDS: Lisinopril TAB* 5 MG PO SCH (19:50)
[2020-01-07] MEDS: Mirtazapine TAB* 15 MG PO SCH (19:50)
[2020-01-08] MEDS: D5NS 0.9% 1000 ML BAG* 1,000 ML IV SCH ×2 (01:20→15:38)
[2020-01-08 05:27] LABS: BUN/Creatinine Ratio 9.6 (8-20); Calcium 8.8 mg/dL (8.6-10.3); EGFR African American 31.8 (>60); EGFR Non-African American 26.3 (>60); Potassium 4.4 mmol/L (3.5-5.0)
[2020-01-08] MEDS ORDERED: Levothyroxine TAB* 25 MCG TAB PO SCH (06:00)
[2020-01-08] MEDS: Amiodarone TAB* 200 MG PO SCH (08:58)
[2020-01-08] MEDS: Aspirin 81 mg CHEW TAB* 81 MG TAB.CHEW PO SCH (08:58)
[2020-01-08] MEDS: Clopidogrel TAB* 75 MG PO SCH (08:58)
[2020-01-08] MEDS: Furosemide TAB* 20 MG PO SCH (08:59)
[2020-01-08] MEDS: Docusate CAP* 100 MG PO SCH ×2 (08:59→20:16)
[2020-01-08] MEDS: DULoxetine DR CAP* 60 MG CAP.DR PO SCH (08:59)
[2020-01-08] MEDS: Pantoprazole TAB * 40 MG TAB PO SCH (09:00)
[2020-01-08] MEDS: Potassium Chlor TAB* 20 MEQ TAB.ER PO SCH (09:00)
[2020-01-08] MEDS: Metoprolol Succinate XL TAB* 100 MG PO SCH (09:00)
[2020-01-08] MEDS: Spironolactone TAB* 25 MG PO SCH (09:01)
[2020-01-08] MEDS: Heparin VIAL(*) 5000 UNITS/ML VIAL (FIVE THOUSAND) SUBCUT SCH ×2 (09:09→20:20)
--- NOTE | 2020-01-08 12:18 | CONSULT ---
Identification - Patient Identification Reason for Psychiatric Consultation: Incapacitating Symptoms -: Patient is a 79 year old, M admitted on 12/21/19. - MHU Identification Employment Status: Disabled Hx Psychiatric Hospitalization: No History - Objective HPI: I saw Zane briefly for follow up this morning in the PT gym on the [facility]. He was accompanied by his . Staff were also present and report that Zane is more interactive today and accomplishing more in his therapy than previously. He appears to have benefitted from fluid repletion and more oral intake. Zane denies untoward effects from the increase in his mirtazapine. He is aware that he is likely going home tomorrow, saying "I'm looking forward to it." He again denies SI. Exam Appearance: Thin Framed Hygiene: Normal Grooming: Well Kept Psychomotor Activities: Abnormal-Decreased Exhibits Abnormal Movement: No Attitude and Relatedness: Cooperative Eye Contact: Good - Speech Quality: Unpressured Latencies: Long Quantity: Terse Patient's Decription of Mood: "Good" Observed Affect: Fair Affect Consistent with: Dysphoria Patient's Thought Process: Coherent Thought Content: No Passive Wish, No Suicidal Planning, No Homicidal Ideation, No Paranoid Ideation Experiencing Hallucinations: No, Sensorium is Clear Type of Hallucinations: Visual: No, Auditory: No, Command: No Level of Consciousness: Alert Orientation: Yes Intact, Yes Orientated to Time, Yes Orientated to Place, Yes Orientated to Person Impulse Control: Intact Insight and Judgement: Fair Impression - Impression Clinical Impression: 79 y.o. , white male with a history of depression, currently admitted to the [facility] for rehabilitation following a 5-vessel CABG, performed one month ago at [facility] in [place], who is seen due to concerns that symptoms of depression are interfering with his rehabilitative treatment. Inpatient DSM-V Dx: F33.1 Merits Inpatient Hospitalization: No BSU: Problem List - Patient Problems (1) Major depressive disorder, recurrent, moderate Current Visit: Yes Status: Acute Priority: Medium Code(s): F33.1 - MAJOR DEPRESSIVE DISORDER, RECURRENT, MODERATE SNOMED Code(s): 194111903 Plan - Treatment Plan Treatment Plan: We have added mirtazpine 15mg PO qhs to his duloxetine 60mg PO qday. Patient doing better following IVF. Mr. Estrada may f/u with PCP after discharge. Psychiatry will continue to follow. Continued Medication Management: Different Medication Medications: Current Medications Acetaminophen (Tylenol Adult Liq*) 650 mg PO Q6H PRN PRN Reason: MILD PAIN/TEMPERATURE > 100.4 Amiodarone HCl (Cordarone Tab*) 200 mg PO DAILY COUNTS INCLUDE 234 BEDS AT THE [facility] Last Admin: 01/08/20 08:58 Dose: 200 mg Aspirin (Aspirin 81 Mg Chew Tab*) 81 mg PO DAILY COUNTS INCLUDE 234 BEDS AT THE [facility] Last Admin: 01/08/20 08:58 Dose: 81 mg Bisacodyl (Dulcolax Supp*) 10 mg RI DAILY PRN PRN Reason: CONSTIPATION Last Admin: 01/05/20 15:26 Dose: 10 mg Clopidogrel Bisulfate (Plavix Tab*) 75 mg PO DAILY COUNTS INCLUDE 234 BEDS AT THE [facility] Last Admin: 01/08/20 08:58 Dose: 75 mg Docusate Sodium (Colace Cap*) 100 mg PO BID COUNTS INCLUDE 234 BEDS AT THE [facility] Last Admin: 01/08/20 08:59 Dose: 100 mg Duloxetine HCl (Cymbalta Cap*) 60 mg PO DAILY COUNTS INCLUDE 234 BEDS AT THE [facility] Last Admin: 01/08/20 08:59 Dose: 60 mg Furosemide (Lasix Tab*) 20 mg PO DAILY COUNTS INCLUDE 234 BEDS AT THE [facility] Last Admin: 01/08/20 08:59 Dose: 20 mg Heparin Sodium (Porcine) (Heparin Vial(*)) 5,000 units SUBCUT Q12HR COUNTS INCLUDE 234 BEDS AT THE [facility] Last Admin: 01/08/20 09:09 Dose: 5,000 units Dextrose/Sodium Chloride (D5ns 0.9% 1000 Ml Bag*) 1,000 mls @ 75 mls/hr IV PER RATE COUNTS INCLUDE 234 BEDS AT THE [facility] Stop: 01/09/20 00:19 Last Admin: 01/08/20 01:20 Dose: 75 mls/hr Lisinopril (Prinivil Tab*) 5 mg PO 2100 COUNTS INCLUDE 234 BEDS AT THE [facility] Last Admin: 01/07/20 19:50 Dose: 5 mg Magnesium Oxide (Magox 400 Tab*) 400 mg PO 1700 COUNTS INCLUDE 234 BEDS AT THE [facility] Last Admin: 01/07/20 16:23 Dose: 400 mg Metoprolol Succinate (Toprol Xl Tab*) 100 mg PO DAILY COUNTS INCLUDE 234 BEDS AT THE [facility] Last Admin: 01/08/20 09:00 Dose: 100 mg Mirtazapine (Remeron Tab*) 15 mg PO BEDTIME COUNTS INCLUDE 234 BEDS AT THE [facility] Last Admin: 01/07/20 19:50 Dose: 15 mg Ondansetron HCl (Zofran Odt Tab*) 4 mg SL Q6H PRN PRN Reason: NAUSEA/VOMITING Last Admin: 12/30/19 11:24 Dose: 4 mg Pantoprazole Sodium (Protonix Tab*) 40 mg PO DAILY COUNTS INCLUDE 234 BEDS AT THE [facility] Last Admin: 01/08/20 09:00 Dose: 40 mg Potassium Chloride (Klor Con Er Tab*) 20 meq PO DAILY COUNTS INCLUDE 234 BEDS AT THE [facility] Last Admin: 01/08/20 09:00 Dose: 20 meq Pravastatin Sodium (Pravachol (Nf)) 20 mg PO 1700 COUNTS INCLUDE 234 BEDS AT THE [facility] Last Admin: 01/07/20 16:23 Dose: 20 mg Senna (Senokot 8.6 Mg Tab*) 2 tab PO BEDTIME PRN PRN Reason: CONSTIPATION Last Admin: 01/06/20 21:13 Dose: 2 tab Spironolactone (Aldactone Tab*) 12.5 mg PO DAILY COUNTS INCLUDE 234 BEDS AT THE [facility] Last Admin: 01/08/20 09:01 Dose: 12.5 mg - Discharge Plan Discharge Plan: Outpatient Follow Up
--- NOTE | 2020-01-08 12:52 | PMRUTEAM ---
PMRU: Team Meeting Current Status: Physical Therapy: Current Status Current Rolling Status Partial/Moderate Current Supine <-> Sit Status Partial/Moderate Current Sit <-> Stand Status Partial/Moderate Current Bed <-> Chair Status Partial/Moderate Transfer/Bed Mobility Rolling Walker Recommended Devices Transfer Mobility Comment Min-CGA for sit to stand and transfer with FWW Current Picking Up Object Not attempted Status Current Car Transfer Status Partial/Moderate Current Ambulation Assistance Partial/Moderate Status Ambulation Assistive Device Rolling Walker Ambulation Conditions Two or More Turns,Uneven Surfaces Current Ambulation Distance x10' Ambulation Comment Pt. has poor dynamic standing balance tends to lean backwards can't self c. Current Wheelchair Propulsion Not Applicable Ability Status Current Stair Climbing Status Supervision/Touching Stair Climbing Assistive Left Railing,Right Railing Devices Number of Stairs Climbed 1 Current Curb Assistance Status Not attempted Curb Assistive Devices None Objective Comments Pt fatigues quickly with standing activities and only able to ambulate x10ft before requiring sitting rest break. Pt states he needs to sit due to LE knee pain and LE weakness. Pt's able to provide assistance for sit to stand and transfers with min A today. Pt unable to ambulate household distances or perform stair negotiation this AM due to fatigue. Occupational Therapy: Current Status Current Upper Body Dressing Setup or Clean-up Assist Status Current Lower Body Dressing Substantial/Maximal Status Current Footwear Status Dependent Current Bathing Status Partial/Moderate Current Grooming Status Partial/Moderate Current Toileting Status Partial/Moderate Current Toilet Transfer Status Partial/Moderate Current Eating Status Independent Nursing: Current Status Skin Deviations [Left Flank] Bruise Skin Deviations [Bilateral Incision,Other Medial Thigh] Skin Deviations [Bilateral Other Buttocks] Skin Deviations [Right Groin] Previous Access Point Skin Deviations [Left Lower Bruise Abdomen] Skin Deviations [Upper Abdomen Previous Access Point ] Skin Deviations [Left Lower Incision Breast] Skin Deviations [Right Upper Previous Access Point Arm] Skin Deviations [Right Lower Other Back] Skin Deviations [Midline Chest Incision ] Skin Deviation Description [ graft site healing Bilateral Medial Thigh] Skin Deviation Description [ reddness Bilateral Buttocks] Skin Deviation Description [ healing Right Groin] Skin Deviation Description [ scab over Left Lower Abdomen] Skin Deviation Description [ two dark scabs Upper Abdomen] Skin Deviation Description [ status post thoracentesis Left Lower Breast] Skin Deviation Description [ s/p picc Right Upper Arm] Skin Deviation Description [ pt had thoracentisis done, drain access Right Lower Back] Skin Deviation Description [ sternal incision healing well Midline Chest] Bladder Current Status dependent/uses urinal Bowel Current Status dependent Nutrition Current Status 50% Medication Current Status dependent Rec Therapy: Current Status Summary of Assessment and Recreation therapy assessment complete and pt is Clinical Impression aware of services. Pt is often in bed sleeping in the afternoon after therapy, but is open to continued leisure visits. Pt was provided with word searches and has been encouraged to complete them. Treatment Goals Pt will engage in leisure activities while on the unit, as tolerated Treatment Plan Provide recreation therapy services and encourage involvement Social Work: Current Status Discharge Plan return home with home care services and family support Potential for Family Training pt's is involved and supportive Anticipated Discharge Home Destination Discharge With home care svs and family support Nutrition: Current Status Monitoring current pureed diet texture remains apprpopriate per PIPE INSTALLER follow-up 01/01. Pt's diet was liberalized from heart healty to simply "no salt packet" in an effort to improve po intake. He states that his appetite "feels like it's getting a little better", having eaten approx 30% of dinner last night (per records). He has been fatigued, remains somehwat flat in affect, and eating only ~ 15% of meals on avg. Remeron started 01/03. BM . He does state that he likes the gravy on his potatoes now, and he reports using and liking the Mrs Dash for seasoning. Will cont to follow for appropriate texture adjustments and any GI re- consult (s/p esophagram 12/30 = delayed transit through GE junction). Will cont to offer small milkshakes @ L-D and any other food/drink desired by pt. Cont to encourage and assist as needed. Suggest consider appetite stimulant if po intake not showing improvement in next 2-3 days. Speech: Current Status Assessment Patient is progressing slowly as expected. Patient demonstrated adequate oropharyngeal swallowing function for soft mechanical/ground diet textures, but s/s esophageal dysmotility for pills and soft solids, requiring pureed and liquid diet textures. PIPE INSTALLER provided skilled observation of trials of mashewd potatoes and pureed pork with gravy. Patient demonstrated adequate oral preparation and timely swallows, and no clinical s/s oropharyngeal residue or aspiration. At first patient rinsed with water but continued with consecutive bites without liquid rinses between. Patient c/o in general that eggs and other purees "stuck in his throat," while pointing to his lower throat, suprasternal notch and upper sternum. Patient c/o abdominal pain and lack of appetite, but continued to accept trials as requested by PIPE INSTALLER . Current diet texture is appropriate until further medical resolution of gastroesophageal dysmotility . PIPE INSTALLER will reasses for mechanical/ground texture when tolerable in gastroesophageal tract. Hold swallowing treatment. Goals: Physical Therapy: Goals Goals to Be Accomplished in ( 10-14 Days) Goal: Rolling Assistance Independent Goal Supine <-> Sit Status Independent Goal Sit <-> Stand Status Independent Goal Bed <-> Chair Status Independent Transfer/Bed Mobility Rolling Walker Recommended Devices Goal: Picking Up Object Independent Goal: Car Transfer Status Setup or Clean-up Assist Goal: Ambulation Assistance Independent Ambulation Assistive Devices Rolling Walker Ambulation Distance (ft) 150' Goal: Wheelchair Propulsion Not Applicable Ability Goal: Stairs Assistance Supervision/Touching Stairs Recommended Devices Two Rails Number of Stairs 3 Goal: Curb Assistance Supervision/Touching Goal: Home Exercise Program Independent Assistance Occupational Therapy: Goals Goals to be Completed in (Days 10-14 days ) Goal Upper Body Dressing Independent Routine Goal Lower Body Dressing Supervision/Touching Routine Goal Footwear Status Partial/Moderate Goal Bathing Routine (OT) Supervision/Touching Goal Grooming Routine Setup or Clean-up Assist Goal Toilet Hygiene and Independent Clothing Management Routine Goal Toilet Transfer Routine Independent Goal Functional Transfers for Independent ADL Goal Feeding Routine Independent Goal Light Housekeeping Tasks Not Applicable Light Housekeeping Tasks pts completes all household tasks Assistive Devices Goals Comment Pts completes all housekeeping tasks at home at baseline Nutrition: Goals Intervention Goals 1. improved and adequate intake to support stable wt, hydration, and repletion of lean body mass 2. achieve and maintain serum electrolytes WNL 3. no clinical s/sx dehydration; ultimately, liquid intake > 1800ml/day 4. regulation of bowel pattern; no c/o constipation (or diarrhea) Speech: Goals Speech Goal 1 Swallowing Speech Evaluation Status Goal Moderate 1 Goal 1 Comments Long-Term Goal: Patient will tolerate least restrictive diet consistencies w/ adequate hydration and nutritional intake, and no clinical s/s of aspiration. Status: Adapted to gastroesophageal status. Short Term Goals: 1) STG: Pt will tolerate pureed texture and thin liquids w/ timely oral transit and no clinical s/s aspiration. Status: Progressing slowly as expected Patient has tolerated greater intake of pureed than soft, but appetite and intake remains poor. 2) STG: Patient will tolerate oral medications in liquid, crushed or whole pill form without clinical s/s aspiration or excessive gastroesophageal delay. Status: Progressing slowly as expected PIPE INSTALLER provided skilled observation and direction during noon medication pass by primary care nurse with charge nurse supervising. This day, patient did not tolerate liquid medications. Patient did tolerate pills criushed or whole in applesauce with slow pacing and rinses of water between. Patient felt too full to eat lunch and mildly nauseous after trying liquid Potassium. STG: Pt will tolerate soft mechanical/ground consistency w/ adequate preparation, timely oral transit and no s/s esophageal dysmotility. Status: On hold pending medical resolution of delay of gastroesopageal transit. Social Work: Goals Discharge Plan return home with home care services and family support Potential for Family Training pt's is involved and supportive Anticipated Discharge Home Destination Discharge With home care svs and family support Nursing: Goals Bladder Goal independent Bowel Goal independent Nutrition Goal 100% of meals eaten Medication Goal helps with medications Care Plan: Care Plan ADL's - Improve/Maintain Start: 12/21/19 15:47 Freq: DAILY@0700,1900 Status: Active Target: 12/22/19 Protocol: Activity Type Activity Date Activity User E-Sign Co-Sign Detail Recorded Client Recorded Date Recorded By Document 01/04/20 12:08 [id number] 01/04/20 12:09 [id number] 01/04/20 12:08 PMRU Outcome: ADL's/ADL Transfers Orders/Interventions Occupational Therapy Evaluation & Treatment Device Yes Address Deficits Secondary To: CABG x5 Patient to receive OT 5x/wk for 60-120 Therex min/day Self Care Management Group Therapy UE/LE ADL's with Assist Yes: Independent ADL Transfers with Assist Yes: Independent Toileting: Transfers,Clothing Management Yes: ,Hygeine w/Assist Independent Light Kitchen/Laundry w/Assist Yes: totalA Progression Toward Outcome/Goals Not Progressing Lack of Progression Comment Pt continues to demonstrate difficulty making functional progress 2* B knee pain, abdomen pain, B calf pain and decreased motivation. Cardiovascular- Improve/Maintain Start: 12/21/19 18:08 Freq: DAILY@[id number] Status: Active Target: 01/09/20 Protocol: Activity Type Activity Date Activity User E-Sign Co-Sign Detail Recorded Client Recorded Date Recorded By Document 01/08/20 11:24 [id number] 01/08/20 11:27 [id number] 01/08/20 11:24 PMRU Outcome: Cardiovascular Current Cardiovascular Outcome/Goal Maintain/ Achieve Baseline HR, BP , Perfusion Progression Toward Outcome/Goal Progressing Communication-Improve/Maintain Start: 12/31/19 19:45 Freq: DAILY@[id number] Status: Active Target: 01/09/20 Protocol: Activity Type Activity Date Activity User E-Sign Co-Sign Detail Recorded Client Recorded Date Recorded By Document 01/08/20 00:12 [id number] [id number] 01/08/20 00:12 [id number] 01/08/20 00:12 PMRU Outcome: Communication/Cognitive Status Current Communication Outcome/Goals Makes Needs Known Effectively Progression Toward Outcomes/Goals Progressing DVT Prophylaxis- Improve/Maintain Start: 12/21/19 18:08 Freq: DAILY@ Status: Complete Target: 01/08/20 Protocol: Activity Type Activity Date Activity User E-Sign Co-Sign Detail Recorded Client Recorded Date Recorded By Document 01/08/20 11:24 [id number] [id number] 01/08/20 11:27 [id number] 01/08/20 11:24 PMRU Outcome: DVT Prophylaxis Current DVT Outcome/Goals Remains Free of DVT Free of complications from current DVT Complies with DVT Prophylaxis /Treatment Demonstrates Knowledge of DVT Prevention/ Treatment TEDS Stockings on Every AM, Off at HS Progression Toward Outcome/Goals Progressing Discharge Planning - Improve/Maintain Start: 12/21/19 18:08 Freq: [id number] Status: Active Target: 01/09/20 Protocol: Activity Type Activity Date Activity User E-Sign Co-Sign Detail Recorded Client Recorded Date Recorded By Document 01/08/20 11:24 [id number] [email or web address] 01/08/20 11:27 [id number] 01/08/20 11:24 PMRU Outcome: Discharge Planning Update Patient Family Yes Current Discharge Planning Outcome/Goals Homecare Referral - See Comment Progression Toward Outcome/Goals Progressing Education-Improve/Maintain Start: 12/21/19 18:08 Freq: DAILY@07,1900 Status: Active Target: 01/09/20 Protocol: Activity Type Activity Date Activity User E-Sign Co-Sign Detail Recorded Client Recorded Date Recorded By Document 01/08/20 11:24 [id number] 01/08/20 11:27 [id number] 01/08/20 11:24 PMRU Outcome: Education Current Education Outcome/Goals Demonstrate/ Verbalize Understanding of Written Discharge Instructions Progression Toward Outcome/Goals Progressing Medication Administration Start: 12/27/19 20:18 Freq: DAILY@ Status: Active Target: 01/09/20 Protocol: Activity Type Activity Date Activity User E-Sign Co-Sign Detail Recorded Client Recorded Date Recorded By Document 01/08/20 11:24 [id number] [email or web address] 01/08/20 11:27 [id number] 01/08/20 11:24 PMRU Outcome: Medication Administration Assess Patient Knowledge/Teach Med Yes Education for all Meds 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 No Mobility- Improve/Maintain Start: 12/21/19 17:09 Freq: DAILY@ Status: Active Target: 01/08/20 Protocol: Activity Type Activity Date Activity User E-Sign Co-Sign Detail Recorded Client Recorded Date Recorded By Document 01/04/20 16:21 [id number] 01/04/20 16:21 [id number] 01/04/20 16:21 PMRU Outcome: Mobility Physical Therapy Evaluation and Yes Treatment Activity OOB with Assistance Yes WBAT Yes NWB No TTWB No Device Yes Assistance Yes Patient to be seen 5x/wk for 60-120 min/ Therex day for: Mobility Training Gait Training Balance Current Mobility Outcome/Goals Maintain/ Achieve Baseline Mobility Status Improve Mobility Status Demonstrates Proper Use of Assistive Devices Free from Complications of Immobility Progression Toward Outcome/Goals Progressing Bed Mobility Yes: Independent Transfers Yes: Independent with LRD Gait x ft Yes: 150' Independent with LRD W/C Mobility x ft No Up/Down Stairs Yes: Supervision, 5 steps with 2 rail With HEP Yes: Independent Nutrition/Swallowing- Improve/Maintain Start: 12/21/19 18:08 Freq: DAILY@ Status: Active Target: 01/09/20 Protocol: Activity Type Activity Date Activity User E-Sign Co-Sign Detail Recorded Client Recorded Date Recorded By Document 01/08/20 11:24 [id number] [email or web address] 01/08/20 11:27 [id number] 01/08/20 11:24 PMRU Outcome: Nutrition/Swallowing Current Nutrition/Swallowing Outcome/ Demonstrates Goals Adequate Hydration/ Prevents Dehydration Maintain/ Improve Nutritional Status Progression Toward Outcome/Goals Not Progressing Lack of Progression Comment IV fluids Pain/Comfort- Improve/Maintain Start: 12/21/19 18:08 Freq: DAILY@0700,1900 Status: Complete Target: 01/08/20 Protocol: Activity Type Activity Date Activity User E-Sign Co-Sign Detail Recorded Client Recorded Date Recorded By Document 01/08/20 11:24 [id number] 01/08/20 11:27 01/08/20 11:24 PMRU Outcome: Pain/Comfort Current Pain/Comfort Outcome/Goals Demonstrates Knowledge and Use of Available Comfort Measures Achieves Acceptable Comfort/Pain Level as Determined by Patient/Condit Maintain Comfort Level Allowing Patient to Fully Participate in Rehab Progression Toward Outcome/Goals Progressing Rec Therapy- Improve/Maintain Start: 12/21/19 16:00 Freq: DAILY@07,1900 Status: Active Target: 01/08/20 Protocol: Activity Type Activity Date Activity User E-Sign Co-Sign Detail Recorded Client Recorded Date Recorded By Document 01/02/20 16:29 [id number] [email or web address] 01/02/20 16:29 [id number] 01/02/20 16:29 PMRU Outcome: Recreation Therapy Current Rec Ther Outcome/Goals Complete Rec Therapy Assessment Meet with Patient Regularly for Support Encourage Leisure Involvement Progression Toward Outcome/Goals Progressing Outcome/Goals Met Complete Rec Therapy Assessment Safety- Improve/Maintain Start: 12/21/19 10:58 Freq: DAILY@0700,1900 Status: Complete Target: 01/08/20 Protocol: Activity Type Activity Date Activity User E-Sign Co-Sign Detail Recorded Client Recorded Date Recorded By Document 01/08/20 11:24 [id number] 01/08/20 11:27 [id number] 01/08/20 11:24 PMRU Outcome: Safety Current Safety Outcome/Goals Remain Free of Injury or Harm Cooperates with Safety Measures for Least Restrictive Environment Prevent Falls/ Injury Progression Toward Outcome/Goals Progressing Skin- Improve/Maintain Start: 12/21/19 18:08 Freq: DAILY@0700,1900 Status: Active Target: 01/09/20 Protocol: Activity Type Activity Date Activity User E-Sign Co-Sign Detail Recorded Client Recorded Date Recorded By Document 01/08/20 11:24 [id number] 01/08/20 11:27 [id number] 01/08/20 11:24 PMRU Outcome: Skin Skin Risk Level Mild Risk Skin Orders Turn/Position q2hr While in Bed Current Skin Outcome/Goals Maintain/ Improve Skin Integrity Free from Pressure Injury Surgical Incisions Healing Progression Toward Outcome/Goals Progressing - Interdisciplinary Staff Present Cigarette Packer/Social Work Staff Present: Sarah Rabago LMSW Nursing Staff Present: Taylor Nath RN OT Staff Present: My Roe PT Staff Present: Nancy Hinojosa PIPE INSTALLER Staff Present: Tejinder Snow Medicine Note: Length of Stay: [] Anticipated Discharge Destination: Home Tentative Discharge Date: [] Discharged to: []
[2020-01-08] MEDS: Magnesium Oxide TAB* 400 MG PO SCH (17:38)
[2020-01-08] MEDS: CMCS: Pravastatin (NF) 20 MG TAB PO SCH (17:38)
--- NOTE | 2020-01-08 17:52 | PN ---
Progress Note Date of Service: 01/08/20 Note: SHARAD DIAMOND was visited. Therapy notes read and reviewed. He was discussed in interdisciplinary team rounds. He is certainly more peppy than he has been. He was able to go up and downstairs with help. His was in for discharge training and she wishes to take him home tomorrow. She says she will have help around to assist her Current Medications: Active Medications Generic Name Dose Route Start Last Admin Trade Name Freq PRN Reason Stop Dose Admin Acetaminophen 650 mg 12/31/19 17:00 Tylenol Adult Liq* PO Q6H PRN MILD PAIN/TEMPERATURE > 100.4 Amiodarone HCl 200 mg 12/28/19 09:00 01/08/20 08:58 Cordarone Tab* PO 200 mg DAILY KARINA Administration Aspirin 81 mg 01/01/20 09:00 01/08/20 08:58 Aspirin 81 Mg Chew Tab* PO 81 mg DAILY KARINA Administration Bisacodyl 10 mg 12/25/19 20:48 01/05/20 15:26 Dulcolax Supp* TX 10 mg DAILY PRN Administration CONSTIPATION Clopidogrel Bisulfate 75 mg 12/22/19 09:00 01/08/20 08:58 Plavix Tab* PO 75 mg DAILY KARINA Administration Docusate Sodium 100 mg 01/01/20 21:00 01/08/20 08:59 Colace Cap* PO 100 mg BID KARINA Administration Duloxetine HCl 60 mg 12/22/19 09:00 01/08/20 08:59 Cymbalta Cap* PO 60 mg DAILY KARINA Administration Furosemide 20 mg 12/22/19 09:00 01/08/20 08:59 Lasix Tab* PO 20 mg DAILY KARINA Administration Heparin Sodium (Porcine) 5,000 units 12/21/19 21:00 01/08/20 09:09 Heparin Vial(*) SUBCUT 5,000 units Q12HR KARINA Administration Dextrose/Sodium Chloride 1,000 mls @ 75 mls/hr 01/07/20 11:00 01/08/20 15:38 D5ns 0.9% 1000 Ml Bag* IV 01/10/20 00:19 75 mls/hr PER RATE KARINA Administration Lisinopril 5 mg 12/23/19 21:00 01/07/20 19:50 Prinivil Tab* PO 5 mg 2100 KARINA Administration Magnesium Oxide 400 mg 12/23/19 17:00 01/08/20 17:38 Magox 400 Tab* PO 400 mg 1700 KARINA Administration Metoprolol Succinate 100 mg 12/22/19 09:00 01/08/20 09:00 Toprol Xl Tab* PO 100 mg DAILY KARINA Administration Mirtazapine 15 mg 01/07/20 21:00 01/07/20 19:50 Remeron Tab* PO 15 mg BEDTIME KARINA Administration Ondansetron HCl 4 mg 12/30/19 11:13 12/30/19 11:24 Zofran Odt Tab* SL 4 mg Q6H PRN Administration NAUSEA/VOMITING Pantoprazole Sodium 40 mg 01/03/20 09:00 01/08/20 09:00 Protonix Tab* PO 40 mg DAILY KARINA Administration Potassium Chloride 20 meq 01/03/20 09:00 01/08/20 09:00 Klor Con Er Tab* PO 20 meq DAILY KARINA Administration Pravastatin Sodium 20 mg 12/21/19 17:00 01/08/20 17:38 Pravachol (Nf) PO 20 mg 1700 KARINA Administration Senna 2 tab 12/21/19 12:22 01/06/20 21:13 Senokot 8.6 Mg Tab* PO 2 tab BEDTIME PRN Administration CONSTIPATION Spironolactone 12.5 mg 12/22/19 09:00 01/08/20 09:01 Aldactone Tab* PO 12.5 mg DAILY KARINA Administration Vital Signs: Vital Signs Temp Pulse Resp BP Pulse Ox 97.3 F 80 20 94/59 99 01/08/20 15:45 01/08/20 15:45 01/08/20 15:45 01/08/20 15:45 01/08/20 15:45 Lab Results: Laboratory Results - last 24 hr 01/08/20 04:52 Sodium 140 Potassium 4.4 Chloride 106 Carbon Dioxide 28 Anion Gap 6 BUN 23 Creatinine 2.39 H Est GFR ( Amer) 31.8 Est GFR (Non-Af Amer) 26.3 BUN/Creatinine Ratio 9.6 Glucose 112 H Calcium 8.8 Exam: GENERAL: Alert and appropriate. LUNGS: Decreased breath sounds left lung field sitting up in chair. Right side clear to auscultation HEART: regular rate and rhythm. Pain reproduced with palpation over sternotomy site. ABDOMEN: + bowel sounds, soft, non-tender, non-distended EXTREMITIES: trace edema bilaterally NEUROLOGIC: BUE/BLE motor 5/5 with normal sensation. CN II-XII intact. SKIN: stenotomy site c/d/i. Assessment/Plan: 1. NSTEMI, CABG x5: Toprol/ASA/Pravachol/Lisinopril. PT/OT. Sternal Precautions 2. Pleural Effeusion: Lasix/Aldoactone. chest x-ray 12/29 looked stable. This was tapped in [place]. 3. Atrial Fib: Amiodarone/Toprol 4. PVD, S/P Stent: Plavix/ASA 5. GI/Solids getting stuck: On PPI. Barium swallow showed delayed transition through esophagogastric junction. May need to call GI back 6. DVT Prophylaxis: Heparin S/Q 7. Advance Directives: Full code. is surrogate decision maker 8. Depression: Added Remeron at HS 9. Renal insufficiency: Continue IV D5NS and monitor labs 01/08/20 17:52
[2020-01-08] MEDS: Lisinopril TAB* 5 MG PO SCH (20:15)
[2020-01-08] MEDS: Mirtazapine TAB* 15 MG PO SCH (20:16)
[2020-01-09 05:03] VITALS: BP 114/71
[2020-01-09 05:26] LABS: BUN/Creatinine Ratio 8.6 (8-20); Calcium 9.1 mg/dL (8.6-10.3); EGFR African American 37.2 (>60); EGFR Non-African American 30.7 (>60); Potassium 4.6 mmol/L (3.5-5.0)
[2020-01-09] MEDS: Amiodarone TAB* 200 MG PO SCH (09:52)
[2020-01-09] MEDS: Clopidogrel TAB* 75 MG PO SCH (09:53)
[2020-01-09] MEDS: DULoxetine DR CAP* 60 MG CAP.DR PO SCH (09:53)
[2020-01-09] MEDS: Aspirin 81 mg CHEW TAB* 81 MG TAB.CHEW PO SCH (09:53)
[2020-01-09] MEDS: Pantoprazole TAB * 40 MG TAB PO SCH (09:54)
[2020-01-09] MEDS: Metoprolol Succinate XL TAB* 100 MG PO SCH (09:54)
[2020-01-09] MEDS: Spironolactone TAB* 25 MG PO SCH (09:57)
[2020-01-09] MEDS: Heparin VIAL(*) 5000 UNITS/ML VIAL (FIVE THOUSAND) SUBCUT SCH (10:03)
[2020-01-09] MEDS: Docusate CAP* 100 MG PO SCH (10:17)
--- NOTE | 2020-01-09 19:46 | DS ---
CC: Dr. Amor Brown* DISCHARGE SUMMARY: DATE OF ADMISSION: 12/21/19 DATE OF DISCHARGE: 01/09/20 DISCHARGE DIAGNOSES: 1. Yvu-ZO-jmollonwl myocardial infarction. 2. Coronary artery bypass graft x5. 3. Postop fluid overload. 4. Dehydration from overdiuresis. 5. History of pulmonary embolus. 6. Peripheral vascular disease. 7. History of bladder cancer. 8. History of nephrectomy, left side. 9. Atrial fibrillation. HISTORY OF ILLNESS AND HOSPITAL COURSE: For complete history of the events leading up to his rehab stay, please see the history and physical dictated by me on 12/22/19. While on the rehab unit, the patient was continued on amiodarone which he had been given in the acute hospital stay. His amiodarone was tapered down to 200 mg once a day. As far as his PA was concerned, he was continued on lisinopril as well as aspirin and Toprol as well as statin, Pravachol. He remained on Lasix and Aldactone for his pleural effusion and volume overload. The patient complained a great deal about GI upset while on the rehab unit and felt that he was on too many medications at once. His pills were spaced out. He continued to complain of a lack of appetite and he did have a gastric emptying study done which showed he had delayed transit time through the esophagogastric junction. He remained quite fatigued. His creatinine started to rise. His creatinine was 1.5 on admission and jose to 1.8 on the 12/31/19 and then was 1.5 again on the 01/02/20, but then up to 2.14 on the 01/07/20. He was given IV fluids and at the time of discharge, his creatinine had fallen to 2.09 from 2.39 on 01/08/20. The patient's diuretics were stopped. His supplemental potassium was stopped. His supplemental magnesium was stopped. The patient did have an episode of chest pain on . Serial troponins were stable at 0.10. He had another episode of chest pain on 12/30/19 and a troponin was 0.06. The patient worked with both physical and occupational therapy and made good gains with both disciplines. With physical therapy at the time of admission, the patient required max assist for a transfer, he was max assist to ambulate about 5 feet. By the time of discharge, the patient was transferring with mod assist and able to ambulate 20 feet to 50 feet with mod assist, able to go up and down stairs with min assist. With occupational therapy at the time of admission, the patient was dependent for upper body dressing, dependent for lower body dressing, dependent for toileting and toilet transfers. By the time of discharge, the patient was set up for upper body dressing, max assist for lower body dressing, dependent for getting his shoes and socks on, supervision for toileting and mod assist for toilet transfers. The patient's came in for a family training prior to discharge. She felt fully confident in taking him home. The patient was discharged home on 01/09/20. DISCHARGE DIET: Cardiac. DISCHARGE MEDICATIONS: 1. Amiodarone 200 mg daily. 2. Aspirin 81 mg daily. 3. Plavix 75 mg daily. 4. Cymbalta 60 mg daily. 5. Lisinopril 5 mg daily. 6. Toprol-XL 100 mg daily. 7. Remeron 15 mg at bedtime. 8. Pravachol 20 mg daily. SERVICES AFTER DISCHARGE: Through visiting nurse service. He will have home nursing, home physical therapy, and a home health aide. FOLLOWUP: Follow up with Dr. Amor Brown on 01/17/20 in [place]. He will also followup with Dr. Lois Ramsay, the healthcare sales representative on 01/11/20 at 10:20. CONDITION AT DISCHARGE: Stable. DISPOSITION: Home. TIME SPENT: Time for this discharge was approximately 50 minutes, greater than half of that was spent with the patient and his explaining post rehab medications, therapies, and services. [id number]/[facility] #: [id number] [facility] CENTERChrissie
== END 2020-01-09 12:00 | disposition home health service (06) | DRG 949 ==
LOC: PMRU 10:33
PROVIDERS: ADMIT Physical Medicine & Rehabilitation; ATTEND Physical Medicine & Rehabilitation
PROC: F07Z5ZZ Bed Mobility Treatment (ICD-10-PCS; principal; 2019-12-21)
PROC: F07Z9ZZ Gait Training/Functional Ambulation Treatment (ICD-10-PCS; 2019-12-21)
PROC: F07Z8ZZ Transfer Training Treatment (ICD-10-PCS; 2019-12-21)
PROC: F07Z4ZZ Wheelchair Mobility Treatment (ICD-10-PCS; 2019-12-21)
PROC: F08Z0ZZ Bathing/Showering Techniques Treatment (ICD-10-PCS; 2019-12-21)
PROC: F08Z1ZZ Dressing Techniques Treatment (ICD-10-PCS; 2019-12-21)
PROC: F08Z3ZZ Feeding/Eating Treatment (ICD-10-PCS; 2019-12-21)
PROC: F08Z2ZZ Grooming/Personal Hygiene Treatment (ICD-10-PCS; 2019-12-21)
PROC: F06ZDZZ Swallowing Dysfunction Treatment (ICD-10-PCS; 2019-12-21)
DX: Z48.812 Encounter for surgical aftercare following surgery on the circulatory system (principal); I21.4 Non-ST elevation (NSTEMI) myocardial infarction; F33.1 Major depressive disorder, recurrent, moderate; J90 Pleural effusion, not elsewhere classified; E87.79 Other fluid overload; E86.0 Dehydration; I73.9 Peripheral vascular disease, unspecified; I48.91 Unspecified atrial fibrillation; E78.5 Hyperlipidemia, unspecified; G47.33 Obstructive sleep apnea (adult) (pediatric); I25.10 Atherosclerotic heart disease of native coronary artery without angina pectoris; R13.10 Dysphagia, unspecified; K30 Functional dyspepsia; R10.11 Right upper quadrant pain; R07.9 Chest pain, unspecified; R49.8 Other voice and resonance disorders; N28.9 Disorder of kidney and ureter, unspecified; Z95.1 Presence of aortocoronary bypass graft; Z90.5 Acquired absence of kidney; Z85.51 Personal history of malignant neoplasm of bladder; Z86.711 Personal history of pulmonary embolism; Z79.02 Long term (current) use of antithrombotics/antiplatelets; Z79.82 Long term (current) use of aspirin; Z79.899 Other long term (current) drug therapy; Z80.1 Family history of malignant neoplasm of trachea, bronchus and lung
CPT/HCPCS: 36415; 71046; 74018; 80048; 80053; 83735; 84439; 84443; 84484; 85025; 93005; A9270-GY; J1644

== ENCOUNTER 2021-11-11 21:01 | Observation (INO) ==
[2021-11-11 21:29] LABS: ABS Lymphocytes 0.4 10^3/ul (1.0-4.8); ABS Monocytes 0.6 10^3/ul (0-0.8); ABS Neutrophils 6.9 10^3/ul (1.5-7.7); Eosinophil % 0.5 %; Hematocrit 40 % (42-52); Hemoglobin 13.8 g/dL (14.0-18.0); Lymphocyte % 5.4 %; Mean Corpuscular HGB Conc 35 g/dL (31-36); Mean Corpuscular Hemoglobin 33 pg (27-31); Mean Corpuscular Volume 93 fL (80-94); Platelet Count 138 10^3/uL (150-450); Red Blood Count 4.25 10^6 /uL (4.18-5.48); Red Cell Distribution Width 14 % (10-15)
[2021-11-11 21:46] LABS: ALT 13 U/L (7-52); AST 14 U/L (13-39); Albumin/Globulin Ratio 1.5 (1-3); Alkaline Phosphatase 45 U/L (35-149); Anion Gap 7 mmol/L (2-11); Blood Urea Nitrogen 23 mg/dL (6-24); CO2 Carbon Dioxide 28 mmol/L (22-32); Calcium 9.7 mg/dL (8.6-10.3); Chloride 102 mmol/L (101-111); Globulin 2.6 g/dL (2-4); Glucose 105 mg/dL (70-100); Potassium 3.9 mmol/L (3.5-5.0); Sodium 137 mmol/L (135-145); Total Protein 6.6 g/dL (6.4-8.9); eGFR CKD-EPI 38.4 (>60)
[2021-11-11 22:02] LABS: Troponin I 0.03 ng/mL (<0.03)
[2021-11-11] MEDS ORDERED: Iodixanol (CONTRAST) 320 MG/ML 100 ML SDV IV ONE (22:14)
[2021-11-11 22:22] LABS: Lipase 13 U/L (11.0-82.0)
[2021-11-12 01:49] LABS: Urine Appearance Cloudy; Urine Bilirubin Negative (Negative); Urine Blood 1+ (Negative); Urine Color Yellow; Urine Glucose Negative (Negative); Urine Ketones Negative (Negative); Urine Nitrite Negative (Negative); Urine Protein Negative (Negative); Urine Specific Gravity 1.033 (1.002-1.030); Urine Urobilinogen Negative (Negative)
[2021-11-12 01:53] LABS: Urine Bacteria Absent (Absent); Urine Red Blood Cell 3+(>10/hpf) (Absent); Urine Squamous Epithelial Cell Present (Absent); Urine White Blood Cell 3+(>20/hpf) (Absent)
[2021-11-12 02:36] LABS: Troponin I 0.03 ng/mL (<0.03)
[2021-11-12] MEDS ORDERED: cefTRIAXone 1 gm/50 mL NS BAG 1 GM/50 ML BAG IV ONE (02:57)
[2021-11-12] MEDS ORDERED: Polyethylene Glycol 3350 17 GM PACKET PO PRN (06:37)
[2021-11-12] MEDS ORDERED: Senna TAB 8.6 mg TAB PO PRN (06:37)
[2021-11-12] MEDS ORDERED: Magnesium Hydroxide LIQ 30 ML UDC PO PRN (06:37)
[2021-11-12 07:08] LABS: Troponin I 0.03 ng/mL (<0.03)
[2021-11-12] MEDS ORDERED: Nitroglycerin 0.6 mg TAB SL PRN (08:01)
[2021-11-12 08:45] LABS: Magnesium 1.5 mg/dL (1.9-2.7)
[2021-11-12] MEDS ORDERED: Magnesium Sulfate IV 3 GM in NS 0.9% 100 ml BAG 100 ML IVPB ONE (08:54)
[2021-11-12] MEDS ORDERED: FENOFIBRATE 160 MG PO SCH (09:00)
[2021-11-12] MEDS ORDERED: DULoxetine DR 60 mg CAP PO SCH (09:00)
[2021-11-12] MEDS ORDERED: Enoxaparin 40 MG/0.4 ML SYR SUBCUT SCH (09:00)
[2021-11-12] MEDS: Magnesium Hydroxide LIQ 30 ML UDC PO SCH ×2 (10:01→10:02)
[2021-11-12] MEDS ORDERED: NS 0.9% 500 ml BAG 500 ML IV ONE (12:35)
[2021-11-12] MEDS ORDERED: Metoclopramide 5 MG/ML VIAL (10 mg) IV SLOW PU ONE (12:35)
[2021-11-12 15:34] VITALS: BP 139/72
[2021-11-13] MEDS ORDERED: cefTRIAXone 1 gm/50 mL NS BAG 1 GM/50 ML BAG IVPB SCH (06:00)
== END 2021-11-12 16:45 | disposition home or self-care (01) ==
LOC: EDHOLD 21:01 → ED 21:01 → SUATTDRO 11-12 07:39 → MED 11-12 08:12
PROVIDERS: ADMIT Internal Medicine; ATTEND Student in an Organized Health Care Education/Training Program

== ENCOUNTER 2023-12-08 14:17 | Observation (INO) ==
[2023-12-08 17:06] LABS: ABS Eosinophils 0.1 10^3/uL (0.0-0.5); ABS Lymphocytes 1.1 10^3/uL (1.0-4.8); ABS Monocytes 0.6 10^3/uL (0.0-1.1); ABS Neutrophils 7.6 10^3/uL (1.5-7.6); ABS Nucleated RBC 0.03 10^3/ul; Hematocrit 46.7 % (38-53); Hemoglobin 16.1 g/dL (13.2-16.3); Lymphocyte % 11.3 %; Mean Corpuscular Hgb Conc 34.4 g/dL (31-36); Nucleated Red Blood Cells % 0.3 %/100WBC (0.0-0.8); Platelet Count 225 10^3/uL (150-450); Red Blood Count 5.02 10^6/uL (4.06-5.63); White Blood Count 9.4 10^3/uL (3.6-10.2)
[2023-12-08 17:46] LABS: Albumin 4.5 g/dL (3.2-5.2); Albumin/Globulin Ratio 1.6 (1-3); Calcium 10.3 mg/dL (8.6-10.3); Creatinine, Serum 1.74 mg/dL (0.67-1.17); Globulin 2.8 g/dL (2-4); Magnesium 2.1 mg/dL (1.9-2.7); Phosphorus 3.4 mg/dL (2.5-5.0); Potassium 4.8 mmol/L (3.5-5.0); Total Bilirubin 0.8 mg/dL (0.2-1.0); Total Protein 7.3 g/dL (6.4-8.9); eGFR CKD-EPI 38.2 (>60)
[2023-12-08 18:23] LABS: Urine Appearance Clear; Urine Bilirubin Negative (Negative); Urine Blood Negative (Negative); Urine Color Light-Yellow; Urine Glucose 4+ (>=1000 mg/dL) (Negative); Urine Ketones Negative (Negative); Urine Nitrite Negative (Negative); Urine Protein Negative (Negative); Urine Urobilinogen Negative (Negative); Urine pH 5.5 (5.0-8.0)
[2023-12-08 18:35] LABS: High Sensitivity Troponin 1 Hr 31 pg/mL (<20)
[2023-12-08] MEDS: Iodixanol (CONTRAST) 320 MG/ML 100 ML SDV IV ONE (19:17)
[2023-12-08 20:27] LABS: Digoxin 1.3 ng/ml (0.8-2.0)
[2023-12-08] MEDS: Heparin 5000 UNITS/ML 1 mL VIAL SUBCUT SCH (22:06)
[2023-12-09] MEDS: Aspirin EC 81 mg TAB.EC (enteric coated) PO SCH (09:52)
[2023-12-09] MEDS: DULoxetine DR 60 mg CAP PO SCH (09:53)
[2023-12-09] MEDS: CMCS: Fenofibrate 145 mg TAB (NF) PO SCH (09:53)
[2023-12-09] MEDS: Calcium Carb (TUMS) 500 mg CHEW TAB PO ONE (19:05)
[2023-12-09] MEDS: Heparin 5000 UNITS/ML 1 mL VIAL SUBCUT SCH (21:32)
[2023-12-10] MEDS: DULoxetine DR 60 mg CAP PO SCH (09:58)
[2023-12-10] MEDS: CMC:Fenofibrate 145 mg TAB (NF) PO SCH (09:58)
[2023-12-10] MEDS: Aspirin EC 81 mg TAB.EC (enteric coated) PO SCH (09:58)
[2023-12-10 10:18] VITALS: BP 108/61
== END 2023-12-10 14:33 | disposition home or self-care (01) ==
LOC: ED 14:17 → EDHOLD 14:17 → SUATTDRO 20:05 → MEDTELE 12-09 12:10
PROVIDERS: ADMIT Student in an Organized Health Care Education/Training Program; ATTEND Internal Medicine